=== PATIENT | male | born 1950 | race Caucasian/White ===

== ENCOUNTER 2016-07-28 14:29 | Emergency (ER) | payer MEDICARE, MEDICAID ==
[2016-07-28 16:44] VITALS: BP 122/73
--- NOTE | 2016-07-28 18:40 | UC ---
Skin Complaint HPI - HPI Summary HPI Summary: pt presents with c/o tick bite on right lateral lower back. Pt reports that his "girlfriend" removed the tick at home no complaint of large erythema [place] around tick bite and tenderness, bruising at site with blackened center. - History of Current Complaint Chief Complaint: UCGeneralIllness Time Seen by Provider: 07/28/16 17:33 Stated Complaint: TICK BITE AND RASH Hx Obtained From: Patient Onset/Duration: Gradual Onset, Lasting Days Skin Exposure Onset/Duration: Days Ago Timing: Constant Onset Severity: Mild Current Severity: Moderate Pain Intensity: 4 Pain Scale Used: 0-10 Numeric Location: Discrete - right lateral lower back Character: Redness, Painful Aggravating: Touch Alleviating: Unknown Associated Signs & Symptoms: Positive: Drainage, Tenderness, Red Streaks - one red streak Related History: Insect Bite/Sting - Allergy/Home Medications Allergies/Adverse Reactions: Allergies Allergy/AdvReac Type Severity Reaction Status Date / Time No Known Allergies Allergy Verified 07/28/16 16:31 Review of Systems Constitutional: Negative Skin: Bruising, Other - erythema, tenderness, small amount of discharge, 1 cm "lump' at center of erythema Eyes: Negative ENT: Negative Respiratory: Negative Cardiovascular: Negative Gastrointestinal: Negative Genitourinary: Negative Motor: Negative Neurovascular: Negative Musculoskeletal: Negative Neurological: Negative Psychological: Negative All Other Systems Reviewed And Are Negative: Yes PMH/Surg Hx/FS Hx/Imm Hx Previously Healthy: Yes Endocrine History Of: Denies: Diabetes, Thyroid Disease Cardiovascular History Of: Denies: Cardiac Disorders, Hypertension, Congestive Heart Failure Respiratory History Of: Denies: COPD, Asthma GI/ History Of: Denies: Ulcer Psychological History Of: Reports: Anxiety, Depression - Surgical History Surgical History: Yes Surgery Procedure, Year, and Place: Prostatectomy 2006, appendectomy 1966 - Family History Known Family History: Negative: Cardiac Disease, Hypertension, Diabetes - Social History Alcohol Use: Weekly Alcohol Amount: 1 drink every other day Substance Use Type: Marijuana Substance Use Comment - Amount & Last Used: 2-3X / week Smoking Status (MU): Light Every Day Tobacco Smoker Type: Cigarettes Amount Used/How Often: <1/2 pack/ day Length of Time of Smoking/Using Tobacco: 30YRS Have You Smoked in the Last Year: Yes Physical Exam Triage Information Reviewed: Yes Appearance: Well-Appearing Vital Signs: Initial Vital Signs Temp 97.7 F 07/28/16 16:32 Pulse 65 07/28/16 16:32 Resp 18 07/28/16 16:32 BP 122/73 07/28/16 16:32 Pulse Ox 99 07/28/16 16:32 Vital Signs Reviewed: Yes Eye Exam: Normal ENT Exam: Normal Neck exam: Normal Respiratory Exam: Normal Cardiovascular Exam: Normal Abdominal Exam: Other - redstreak ~ 3 cm in length from edge of erythematous [place] sourrounding insect bite Bowel Sounds: Positive: Present Musculoskeletal Exam: Normal Neurological Exam: Normal Psychological Exam: Normal Skin Exam: Other - ~ 6 cm erythema [place] surrounding blackened center where tick bite. Scant amount pururlent discharge from bite site, firm nadulae felt at insect bite site. Course/Dx - Differential Diagnoses - Skin Complaint Differential Diagnoses: Cellulitis, Tick Born Illness - Diagnoses Provider Diagnoses: cellulitis. tick bite. possible lyme disease exposure Discharge - Discharge Plan Condition: Stable Disposition: HOME Prescriptions: Cefuroxime Axetil [Ceftin 500 MG TAB] 500 mg PO Q12H #28 tab Patient Education Materials: Cellulitis (ED), Tick Bite (ED) Referrals: Pilar Chavez MD [Primary Care Provider] - If Needed (Please follow up with your PCP as needed or return to clinic. If you develop any changes or worsening of your condition please seek medical attention as soon as possible. )
== END 2016-07-28 17:55 | disposition home or self-care (01) ==
LOC: UCEAST 14:29
DX: S30.860A Insect bite (nonvenomous) of lower back and pelvis, initial encounter (principal); L03.312 Cellulitis of back [any part except buttock and flank]; W57.XXXA Bitten or stung by nonvenomous insect and other nonvenomous arthropods, initial encounter; Y93.9 Activity, unspecified; Y92.9 Unspecified place or not applicable; F41.8 Other specified anxiety disorders; F17.210 Nicotine dependence, cigarettes, uncomplicated
CPT/HCPCS: 99212; G0463

== ENCOUNTER 2017-06-10 07:59 | Emergency (ER) | payer MEDICARE, MEDICAID ==
[2017-06-10 08:23] VITALS: BP 118/73
--- NOTE | 2017-06-10 08:33 | UC ---
Back Pain HPI - HPI Summary HPI Summary: 67 yo WM h/i lumbar arthritis p/w acute left lower back spasm while trying to rodolfo some firewood x 30 minutes and it acted up. - History of Current Complaint Chief Complaint: UCBackPain Stated Complaint: BACK PAIN Time Seen by Provider: 06/10/17 08:19 Hx Obtained From: Patient Onset/Duration: Sudden Onset Timing: Constant, Lasting Minutes Pain Intensity: 10 - Allergies/Home Medications Allergies/Adverse Reactions: Allergies Allergy/AdvReac Type Severity Reaction Status Date / Time No Known Allergies Allergy Verified 06/10/17 08:11 PMH/Surg Hx/FS Hx/Imm Hx - Additional Past Medical History Additional PMH: arthritis Previously Healthy: Yes - Surgical History Surgical History: Yes Surgery Procedure, Year, and Place: Prostatectomy 2008, appendectomy 1966 - Family History Known Family History: Negative: Cardiac Disease, Hypertension, Diabetes - Social History Alcohol Use: Rare Alcohol Amount: 1 drink every other day Substance Use Type: None Substance Use Comment - Amount & Last Used: 2-3X / week Smoking Status (MU): Light Every Day Tobacco Smoker Type: Cigarettes Amount Used/How Often: 3/4 PPD Length of Time of Smoking/Using Tobacco: 30YRS Have You Smoked in the Last Year: Yes Review of Systems Constitutional: Negative Skin: Negative Eyes: Negative ENT: Negative Respiratory: Negative Cardiovascular: Negative Gastrointestinal: Negative Genitourinary: Negative Motor: Negative Neurovascular: Negative Musculoskeletal: Arthralgia, Decreased ROM - left lower back, Myalgia Neurological: Negative Psychological: Negative All Other Systems Reviewed And Are Negative: Yes Physical Exam Triage Information Reviewed: Yes Vital Signs: Initial Vital Signs Temp 36.5 C 06/10/17 08:12 Pulse 72 06/10/17 08:12 Resp 18 06/10/17 08:12 BP 118/73 06/10/17 08:12 Pulse Ox 99 06/10/17 08:12 Eye Exam: Normal ENT Exam: Normal Dental Exam: Normal Neck exam: Normal Neck: Positive: 1 Respiratory Exam: Normal Cardiovascular Exam: Normal Abdominal Exam: Normal Musculoskeletal Exam: Other Musculoskeletal: Positive: Strength Limited @, ROM Limited @, Other: - left L3- 5 paraspinal muscle tenderness and stiffness Neurological Exam: Normal Psychological Exam: Normal Skin Exam: Normal Back Pain Course/Dx - Differential Dx/Diagnosis Provider Diagnoses: acute lumbar back spasm Discharge - Discharge Plan Condition: Stable Disposition: HOME Prescriptions: Naproxen Sodium [Naproxen Sodium 500 MG TAB] 500 mg PO BID 10 Days #20 tab tiZANidine TAB* [Zanaflex TAB*] 4 mg PO BEDTIME 5 Days #5 tab Patient Education Materials: Muscle Spasm (ED) Referrals: Pilar Chavez MD [Primary Care Provider] - Additional Instructions: take medication as directed
== END 2017-06-10 08:35 | disposition home or self-care (01) ==
LOC: UCEAST 07:59
DX: M62.830 Muscle spasm of back (principal); F17.210 Nicotine dependence, cigarettes, uncomplicated
CPT/HCPCS: 99212; G0463

== ENCOUNTER 2018-10-06 22:40 | Emergency (ER) | payer MEDICARE, MEDICAID ==
[2018-10-06] MEDS ORDERED: Lorazepam PYXIS KEY ONE ×2 (22:43→23:11)
[2018-10-06] MEDS ORDERED: LORazepam INJ* 2 MG/ML 1 ML VIAL ONE (22:43)
[2018-10-06] MEDS ORDERED: Haloperidol INJ IV/IM* 5 MG/ML AMP ONE (22:43)
[2018-10-06] MEDS ORDERED: LORazepam INJ* 2 MG/ML 1 ML VIAL IM ONE ×2 (22:48→23:17)
[2018-10-06] MEDS ORDERED: Haloperidol INJ IV/IM* 5 MG/ML AMP IM ONE (22:48)
[2018-10-06] MEDS ORDERED: Lorazepam PYXIS KEY PRN (23:17)
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
--- NOTE | 2018-10-07 07:19 | ED ---
Progress - Progress Note Progress Note: This patient was signed out from Dr. Mcbride to Dr. Roblero upon shift change at 07:00 10/07/18 pending sobriety. The patient is now sober and will be discharged and follow up with his PCP in 2-3 days. The patient is agreeable with this plan. Course/Dx - Course Course Of Treatment: This patient was signed out by Dr. Mcbride in the previous he attending at shift change. He reports that the patient came in with alcohol intoxication. The patient was given Ativan and Haldol for anxiety. At this time the patient is alert and oriented 3. The patient is ambulating with a good steady walk. The patient is sober and eating breakfast. Therefore the patient will be discharged home with follow-up with PCP. Patient is hemodynamically stable alert and oriented 3. - Diagnoses Provider Diagnoses: Alcohol intoxication Discharge - Sign-Out/Discharge Documenting (check all that apply): Patient Departure - DC, Receiving Sign-Out Receiving patient FROM: Sabas Mcbride Patient Received Moderate/Deep Sedation with Procedure: No - Discharge Plan Condition: Stable Disposition: HOME Patient Education Materials: Alcohol Intoxication (ED) Referrals: Pilar Chavez MD [Primary Care Provider] - (2-3 days) Additional Instructions: FOLLOW UP WITH YOUR PRIMARY CARE PROVIDER IN 2-3 DAYS. RETURN TO THE ED FOR ANY WORSENING OR NEW SYMPTOMS. - Billing Disposition and Condition Condition: STABLE Disposition: Home - Attestation Statements Document Initiated by Marci: Yes Documenting Scribe: Geoff Delgado Provider For Whom Marci is Documenting (Include Credential): Marcio Roblero MD Scribe Attestation: I, Geoff Delgado, scribed for Marcio Roblero MD on 10/07/18 at 0813. Scribe Documentation Reviewed: Yes Provider Attestation: The documentation as recorded by the Geoff holder accurately reflects the service I personally performed and the decisions made by me, Marcio Roblero MD Status of Scribe Document: Viewed
[2018-10-07 07:37] VITALS: BP 140/81
== END 2018-10-07 07:36 | disposition home or self-care (01) ==
LOC: ED 22:40
DX: F10.929 Alcohol use, unspecified with intoxication, unspecified (principal); F17.210 Nicotine dependence, cigarettes, uncomplicated
CPT/HCPCS: 96372; 99284; J1630; J2060

== ENCOUNTER 2018-11-13 13:43 | Emergency (ER) | payer MEDICARE, MEDICAID ==
[2018-11-13 16:41] VITALS: BP 0/0
--- NOTE | 2018-11-15 06:01 | ED ---
Throat Pain/Nasal Congestion - HPI Summary HPI Summary: Patient is a 68-year-old male who presents emergency department for possible esophageal foreign body. Patient states he was fishing and was chewing on a piece of grass when he fell and states grass when into his throat. Patient states he feels that his right posterior throat. He denies difficulty swallowing solids or liquids. Symptoms are mild in severity. No current modifying factors. - History of Current Complaint Chief Complaint: EDThroatPain Time Seen by Provider: 11/13/18 15:57 Hx Obtained From: Patient - Allergies/Home Medications Allergies/Adverse Reactions: Allergies Allergy/AdvReac Type Severity Reaction Status Date / Time No Known Allergies Allergy Verified 11/13/18 13:50 Home Medications: Home Medications Oxycodone HCl 10 mg PO QID PRN 11/13/18 [History Confirmed 11/13/18] PMH/Surg Hx/FS Hx/Imm Hx Previously Healthy: Yes Endocrine/Hematology History: Denies: Hx Diabetes, Hx Thyroid Disease Cardiovascular History: Denies: Hx Congestive Heart Failure, Hx Hypertension Respiratory History: Denies: Hx Asthma, Hx Chronic Obstructive Pulmonary Disease (COPD) GI History: Denies: Hx Ulcer History: Reports: Other Problems/Disorders - prostate CA Denies: Hx Renal Disease Musculoskeletal History: Denies: Hx Scoliosis Neurological History: Reports: Other Neuro Impairments/Disorders - CHRONIC LBP Denies: Hx Headaches Psychiatric History: Reports: Hx Anxiety, Hx Depression, Hx of Violent Episodes Against Others Denies: Hx Eating Disorder - Cancer History Cancer Type, Location and Year: prostate cancer - Surgical History Surgery Procedure, Year, and Place: Prostatectomy 2008, appendectomy 1966 Infectious Disease History: No Infectious Disease History: Denies: Hx Hepatitis, Hx Human Immunodeficiency Virus (HIV), History Other Infectious Disease, Traveled Outside the [place] in Last 30 Days - Family History Known Family History: Positive: Non-Contributory Negative: Cardiac Disease, Hypertension, Diabetes - Social History Occupation: Retired Lives: With Family Alcohol Use: Rare Alcohol Amount: unknown Hx Substance Use: Yes Substance Use Type: Reports: Other Substance Use Comment - Amount & Last Used: unknown Hx Tobacco Use: Yes Smoking Status (MU): Light Every Day Tobacco Smoker Type: Cigarettes Amount Used/How Often: 3/4 PPD Length of Time of Smoking/Using Tobacco: 30YRS Have You Smoked in the Last Year: Yes Review of Systems Positive: Other - throat FB Respiratory: Negative Negative: Shortness Of Breath, Cough All Other Systems Reviewed And Are Negative: Yes Physical Exam Triage Information Reviewed: Yes Vital Signs On Initial Exam: Initial Vitals Temp Pulse Resp BP Pulse Ox 97.4 F 60 16 144/84 100 11/13/18 13:47 11/13/18 13:47 11/13/18 13:47 11/13/18 13:47 11/13/18 13:47 Vital Signs Reviewed: Yes Appearance: Positive: Well-Appearing - Pt. sitting in room in NAD. Very aggitated. Skin: Positive: Warm, Dry Head/Face: Positive: Normal Head/Face Inspection Eyes: Positive: Normal, EOMI ENT: Positive: Other - Oral pharynx is patent. No tonsilar edema or exudate. Uvula is midline. I thought I saw a questionable thin FB in posterior pharynx and attempted to remove it with a Q tip but pt. gagged and I lost few. After this pt. states he felt better. Neck: Positive: Supple Neurological: Positive: Normal, CN Intact II-III Psychiatric: Positive: Affect/Mood Appropriate Diagnostics - Vital Signs Vital Signs Temp Pulse Resp BP Pulse Ox 11/13/18 16:39 0 F 0 0 0/0 0 11/13/18 13:47 97.4 F 60 16 144/84 100 - Laboratory Lab Statement: Any lab studies that have been ordered have been reviewed, and results considered in the medical decision making process. EENT Course/Dx - Course Course Of Treatment: Patient presenting with questionable one piece of small grass in his posterior throat. Patient was very agitated having to wait and would only allow Limited exam. Explained to patient. He did indeed have a small piece of grass in his esophagus that it should pass without difficulty. Pt. reassured. DC home to [facility] with pcp if needed. Will return to ER if sxs change or worsen. - Differential Diagnoses Differential Diagnoses: Foreign Body, Pharyngitis - Diagnoses Provider Diagnoses: Dysphagia Discharge - Sign-Out/Discharge Documenting (check all that apply): Patient Departure Patient Received Moderate/Deep Sedation with Procedure: No - Discharge Plan Condition: Improved Disposition: HOME Patient Education Materials: Esophageal Foreign Body (ED) Referrals: Pilar Chavez MD [Primary Care Provider] - Additional Instructions: Follow up with PCP if pain persist Increase fluids Return to ER if symptoms change or worsen - Billing Disposition and Condition Condition: IMPROVED Disposition: Home
== END 2018-11-13 16:39 | disposition home or self-care (01) ==
LOC: ED 13:43
DX: R13.10 Dysphagia, unspecified (principal); F17.210 Nicotine dependence, cigarettes, uncomplicated
CPT/HCPCS: 99281

== ENCOUNTER 2019-04-07 11:17 | Inpatient (IN) | payer MEDICARE, MEDICAID ==
[2019-04-07 12:45] LABS: ABS Eosinophils 0.1 10^3/ul (0-0.6); ABS Lymphocytes 3.1 10^3/ul (1.0-4.8); ABS Monocytes 0.5 10^3/ul (0-0.8); ABS Neutrophils 4.7 10^3/ul (1.5-7.7); Eosinophil % 0.7 %; Hematocrit 33 % (42-52); Hemoglobin 11.9 g/dL (14.0-18.0); Mean Corpuscular HGB Conc 37 g/dL (31-36); Mean Corpuscular Hemoglobin 34 pg (27-31); Mean Corpuscular Volume 91 fL (80-94); Platelet Count 264 10^3/uL (150-450); Red Blood Count 3.56 10^6 /uL (4.18-5.48); Red Cell Distribution Width 13 % (10-15); White Blood Count 8.4 10^3/uL (3.5-10.8)
[2019-04-07 12:59] LABS: Albumin 4.3 g/dL (3.2-5.2); Albumin/Globulin Ratio 1.8 (1-3); BUN/Creatinine Ratio 13.5 (8-20); Calcium 8.5 mg/dL (8.6-10.3); EGFR African American 126.9 (>60); EGFR Non-African American 104.9 (>60); Globulin 2.4 g/dL (2-4); Potassium 4.6 mmol/L (3.5-5.0); Total Bilirubin 0.6 mg/dL (0.2-1.0); Total Protein 6.7 g/dL (6.4-8.9)
[2019-04-07] MEDS ORDERED: NS 0.9% 1000 ML** 1,000 ML IV ONE (13:05)
--- NOTE | 2019-04-07 13:06 | ED ---
Dizziness - HPI Summary HPI Summary: Pt is a 69 y/o M presenting to the ED with a chief complaint of weakness initially onset this morning. He describes it characterized by lightheadedness, generally weak, and diaphoretic on his neck. He denies fever, abd pain, syncope , or chest pain. Reports slight headache this AM, decreased appetite, constipation that he txed with stool softener, and diarrhea this morning. Pt sees Dr. Parisi and takes Morphine 15mg PRN up to 3x/day. Did take his morphine this AM. Has had dec PO intake. - History Of Current Complaint Chief Complaint: EDWeakness Stated Complaint: GENERAL ILLNESS Time Seen by Provider: 04/07/19 12:16 Hx Obtained From: Patient Onset/Duration: Still Present, Suddenly Timing: Hours Severity Initially: Moderate Severity Currently: Mild Character: Lightheaded, Weak Aggravating Factor(s): Nothing Alleviating Factor(s): Nothing Associated Signs And Symptoms: Positive: Diarrhea, Decreased Oral Intake. Negative: Chest Pain - Allergies/Home Medications Allergies/Adverse Reactions: Allergies Allergy/AdvReac Type Severity Reaction Status Date / Time No Known Allergies Allergy Verified 04/07/19 12:41 Home Medications: Home Medications Bisacodyl EC TAB* [Dulcolax EC TAB*] 5 mg PO DAILY PRN 04/07/19 [History Confirmed 04/07/19] Morphine Sulfate 15 mg PO .2-3X/DAY 04/07/19 [History Confirmed 04/07/19] PMH/Surg Hx/FS Hx/Imm Hx Previously Healthy: Yes Endocrine/Hematology History: Denies: Hx Diabetes, Hx Thyroid Disease Cardiovascular History: Denies: Hx Congestive Heart Failure, Hx Hypertension Respiratory History: Denies: Hx Asthma, Hx Chronic Obstructive Pulmonary Disease (COPD) GI History: Denies: Hx Ulcer History: Reports: Other Problems/Disorders - prostate CA Denies: Hx Renal Disease Musculoskeletal History: Denies: Hx Scoliosis Neurological History: Reports: Other Neuro Impairments/Disorders - CHRONIC LBP Denies: Hx Headaches Psychiatric History: Reports: Hx Anxiety, Hx Depression, Hx of Violent Episodes Against Others Denies: Hx Eating Disorder - Cancer History Cancer Type, Location and Year: prostate cancer - Surgical History Surgery Procedure, Year, and Place: Prostatectomy 2008, appendectomy 1966 Infectious Disease History: No Infectious Disease History: Denies: Hx Hepatitis, Hx Human Immunodeficiency Virus (HIV), History Other Infectious Disease, Traveled Outside the [place] in Last 30 Days - Family History Known Family History: Negative: Cardiac Disease, Hypertension, Diabetes - Social History Alcohol Use: None Alcohol Amount: unknown Hx Substance Use: Yes Substance Use Type: Reports: None Substance Use Comment - Amount & Last Used: unknown Hx Tobacco Use: Yes Smoking Status (MU): Heavy Every Day Tobacco Smoker Type: Cigarettes Amount Used/How Often: 3/4 PPD Length of Time of Smoking/Using Tobacco: 30YRS Have You Smoked in the Last Year: Yes Review of Systems Negative: Fever, Other - decreased appetite Negative: Chest Pain Positive: Diarrhea, Other - constipation. Negative: Abdominal Pain Positive: Headache. Negative: Syncope All Other Systems Reviewed And Are Negative: Yes Physical Exam - Summary Physical Exam Summary: Constitutional: Well-developed, Well-nourished, Alert. (-) Distressed Skin: Warm, Dry HENT: Normocephalic; Atraumatic Eyes: Conjunctiva normal Neck: Musculoskeletal ROM normal neck. (-) JVD, (-) Stridor, (-) Nuchal rigidity Cardio: Rhythm regular, rate bradycardic, Heart sounds normal; Intact distal pulses; Radial pulses are 2+ and symmetric. (-) Murmur Pulmonary/Chest wall: Effort normal. (-) Respiratory distress, (-) Wheezes, (-) Rales Abd: Soft, (-) tenderness, (-) Distension, (-) Guarding, (-) Rebound Musculoskeletal: (-) Edema Lymph: (-) Cervical adenopathy Neuro: Alert, Oriented x3 Psych: Mood and affect Normal Triage Information Reviewed: Yes Vital Signs On Initial Exam: Initial Vitals Temp Pulse Resp BP Pulse Ox 97.2 F 51 20 156/75 100 04/07/19 12:03 04/07/19 12:03 04/07/19 12:03 04/07/19 12:03 04/07/19 12:03 Vital Signs Reviewed: Yes Procedures - Sedation Patient Received Moderate/Deep Sedation with Procedure: No Diagnostics - Vital Signs Vital Signs Temp Pulse Resp BP Pulse Ox 04/07/19 12:03 97.2 F 51 20 156/75 100 - Laboratory Lab Results: Lab Results 04/07/19 04/07/19 Range/Units 12:26 12:26 WBC 8.4 (3.5-10.8) 10^3/uL RBC 3.56 L (4.18-5.48) 10^6 /uL Hgb 11.9 L (14.0-18.0) g/dL Hct 33 L (42-52) % MCV 91 (80-94) fL MCH 34 H (27-31) pg MCHC 37 H (31-36) g/dL RDW 13 (10-15) % Plt Count 264 (150-450) 10^3/uL MPV 7.0 L (7.4-10.4) fL Neut % (Auto) 55.6 % Lymph % (Auto) 37.0 % [place] % (Auto) 6.3 % Eos % (Auto) 0.7 % Baso % (Auto) 0.4 % Absolute Neuts (auto) 4.7 (1.5-7.7) 10^3/ul Absolute Lymphs (auto) 3.1 (1.0-4.8) 10^3/ul Absolute Monos (auto) 0.5 (0-0.8) 10^3/ul Absolute Eos (auto) 0.1 (0-0.6) 10^3/ul Absolute Basos (auto) 0.0 (0-0.2) 10^3/ul Absolute Nucleated RBC 0.0 10^3/ul Nucleated RBC % 0.0 Sodium Pending Potassium 4.6 (3.5-5.0) mmol/L Chloride 84 L (101-111) mmol/L Carbon Dioxide 23 (22-32) mmol/L Anion Gap Pending BUN 10 (6-24) mg/dL Creatinine 0.74 (0.67-1.17) mg/dL Est GFR ( Amer) 126.9 (>60) Est GFR (Non-Af Amer) 104.9 (>60) BUN/Creatinine Ratio 13.5 (8-20) Glucose 77 (70-100) mg/dL Calcium 8.5 L (8.6-10.3) mg/dL Total Bilirubin 0.60 (0.2-1.0) mg/dL AST 25 (13-39) U/L ALT 13 (7-52) U/L Alkaline Phosphatase 56 (34-104) U/L Troponin I 0.00 (<0.03) ng/mL Total Protein 6.7 (6.4-8.9) g/dL Albumin 4.3 (3.2-5.2) g/dL Globulin 2.4 (2-4) g/dL Albumin/Globulin Ratio 1.8 (1-3) TSH Pending Result Diagrams: 04/07/19 12:26 04/07/19 12:26 Lab Statement: Any lab studies that have been ordered have been reviewed, and results considered in the medical decision making process. - EKG 1235 Cardiac Rate: Bradycardia - 50bpm EKG Rhythm: Sinus Bradycardia ST Segment: Normal Ectopy: None Summary of EKG Findings: An EKG at 1235 reveals sinus bradycardia 50bpm, nml axis, nml intervals. No STEMI. No acute changes. ED physician has reviewed and interpreted this EKG. Dizzy Course/Dx - Course Course Of Treatment: 69 y/o male w hx as a cancer, bony metastases presents with fatigue. Patient reporting nursing syncopal episode, no infectious symptoms. Does report decreased by mouth intake over the past several days. No vomiting. Did have constipation which resolved. Vital signs notable for bradycardia, patient has had in the past. Labs notable for hyponatremia to 111. No hx of hyponatremic. Differential includes renal vs extra renal causes ( ?SIADH). Appears mildly dehydrated given 1 L NS. - Diagnoses Provider Diagnoses: Hyponatremia, Fatigue Discharge ED - Sign-Out/Discharge Documenting (check all that apply): Patient Departure - Discharge Plan Condition: Stable Disposition: ADMITTED TO [facility] Referrals: Pilar Chavez MD [Primary Care Provider] - - Billing Disposition and Condition Condition: STABLE Disposition: Admitted to [facility] - Attestation Statements Document Initiated by Scribe: Yes Documenting Scribe: Lisa Uriarte Provider For Whom Marci is Documenting (Include Credential): Kiran Jansen MD. Scribe Attestation: Lisa Laws, scribed for Kiran Jansen MD. on 04/07/19 at 1405. Scribe Documentation Reviewed: Yes Provider Attestation: The documentation as recorded by the Lisa holder accurately reflects the service I personally performed and the decisions made by nm, Kiran Jansen MD. Status of Scribe Document: Viewed Consult Consult: [id number] - I spoke with Dr. Parisi about the pt's present condition who [place] [facility] [place]
[2019-04-07 13:12] LABS: TSH (Thyroid Stimulating Horm) 4.13 mcIU/mL (0.34-5.60)
[2019-04-07] MEDS ORDERED: Ondansetron INJ* 2 MG/ML VIAL IV PRN (14:51)
[2019-04-07 14:56] LABS: Urine Appearance Clear; Urine Bilirubin Negative (Negative); Urine Blood 1+ (Negative); Urine Color Yellow; Urine Glucose Negative (Negative); Urine Ketones 1+ (Negative); Urine Nitrite Negative (Negative); Urine Protein Negative (Negative); Urine Specific Gravity 1.011 (1.010-1.030); Urine Urobilinogen Negative (Negative)
[2019-04-07 14:58] LABS: Urine Bacteria Absent (Absent); Urine Red Blood Cell Trace(0-2/hpf) (Absent); Urine White Blood Cell Trace(0-5/hpf) (Absent)
[2019-04-07] MEDS ORDERED: Sodium Chloride 3% HYPERTONIC* 500 ML IV ONE (15:20)
[2019-04-07] MEDS ORDERED: Gadoteridol* (CONTRAST) 279.3 MG/ML 10 ML IV ONE (16:52)
--- NOTE | 2019-04-07 17:41 | HP ---
CC: Dr. Pilar Chavez * ADMISSION HISTORY AND PHYSICAL: DATE OF ADMISSION: 04/07/19 PRIMARY CARE PROVIDER: Dr. Pilar Chavez. PRIMARY ONCOLOGIST AND ATTENDING PHYSICIAN: Dr. Jeff Parisi.* (DICTATED BY JUN COLMENARES) ADMITTING PROVIDER: JUN Colmenares. CHIEF COMPLAINT: Weakness and dizziness. HISTORY OF PRESENT ILLNESS: This is a 69-year-old gentleman with known metastatic prostate cancer who has been completely off of therapy for greater than 1 year per the patient's request, who presented to the emergency department with complaints of weakness and dizziness. The patient reports that symptoms have been persistent for approximately the last 2 days. He denies any vomiting or nausea. He has been quite constipated recently and takes MiraLAX and Colace with some improvement actually to the point that he had diarrhea earlier today. Denies any associated abdominal pain. He denies any cough, shortness of breath, or recent fevers. The patient was found to have a sodium of 111 on routine labs completed in the emergency department and oncology team was asked to come and evaluate. The patient denies any new medications apart from the MiraLAX and Colace that his primary care recommended for management of his constipation. As mentioned above, he reports that he has otherwise been feeling okay, and most recent labs are from October of this past year and sodium was within normal limits at that time. PAST MEDICAL HISTORY: Metastatic prostate cancer - currently off of therapy. PAST SURGICAL HISTORY: Appendectomy in 1966. HOME MEDICATIONS: 1. Bisacodyl 5 mg p.o. daily as needed for constipation. 2. Morphine sulfate 15 mg p.o. 2 to 3 times daily as needed for pain. FAMILY HISTORY: The patient's father at the age of 52 from unclear reasons. Mother at age of 92. Sister at the age of 74 with lung cancer. He has 2 children that are in good health. SOCIAL HISTORY: The patient is single and lives with his son. He is retired. 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 Former smoker, but quit some time ago. REVIEW OF SYSTEMS: Full review of systems completed. Pertinent negatives and positives as noted in HPI. PHYSICAL EXAMINATION GENERAL: A relatively well-appearing 69-year-old male, who appears mildly lethargic, but is otherwise in no acute distress. INITIAL VITAL SIGNS: Temperature 97.2 degrees Fahrenheit, pulse 51 beats per minute, respiratory rate 20, oxygen saturation 100%, blood pressure 156/75 mmHg. HEENT: Head is normocephalic, atraumatic. Mucous membranes are pink and moist. RESPIRATORY: Lungs are clear to auscultation without wheezes, crackles, or rhonchi. CARDIOVASCULAR: Heart has a regular rate and rhythm without murmurs, rubs, or gallops. ABDOMEN: Soft and nontender to palpation. EXTREMITIES: No edema. PSYCH: The patient is alert and appropriately oriented with appropriate affect. DIAGNOSTIC STUDIES/LAB DATA: CBC shows a white blood cell count of 8400, hemoglobin of 11.9 g/dL, and a platelet count of 264,000. Comprehensive metabolic panel: Sodium of 111 mmol/L, potassium of 4.6, BUN of 10, creatinine 0.74. Transaminases and total bilirubin are within normal limits. TSH is 4.1. Serum osmolality is 240. Urine osmolality 437, urine random sodium of 107. Imaging: None. ASSESSMENT AND PLAN: This is a 69-year-old gentleman with known metastatic prostate cancer, off of therapy for greater than 1 year, who presents with generalized feeling of malaise and dizziness, found to have a sodium of 111. There are no obvious inciting factors, but his evaluation appears to be consistent with syndrome of inappropriate antidiuretic hormone secretion with a relatively low serum osmolality, high urine osmolality and high urine sodium. He has a normal TSH. Apart from the recent laxatives, there are no new medications and typically those medications are not associated with syndrome of inappropriate antidiuretic hormone secretion. Prostate cancer is not typically associated with syndrome of inappropriate antidiuretic hormone secretion, but could he develop neuroendocrine differentiation. The patient has no focal central nervous system symptoms. Plan at this time will be to treat the hyponatremia appropriately with hypertonic saline with ICU monitoring and continue to evaluate for underlying etiology. 1. Initiate hypertonic saline with goal of sodium 120 mmol/L over in approximately 24 hours. The patient will be monitored with q.4 hour basic metabolic panels. We will initiate mild fluid restriction starting with 2 L. In regards to evaluating for cause for the syndrome of inappropriate antidiuretic hormone secretion, we will start with an MRI of the brain to evaluate for central nervous system disease. Added on chromogranin studies to initial labs to evaluate for neuroendocrine differentiation and we will also add on a PSA. If MRI of the brain is negative, next pursue CT chest, abdomen and pelvis. 2. Metastatic prostate cancer - continue on home pain medications. Repeat PSA and pending staging studies we will rediscuss his wishes to whether or not to resume treatment if there appears to be any progressive disease. 3. Code status: The patient is full code. 4. DVT prophylaxis: Lovenox 40 mg subcu daily. 5. Disposition: The patient is being admitted to ICU for management of severe hyponatremia requiring hypertonic saline. JUN COLMENARES [id number]/[facility] #: [id number] RITA
[2019-04-07] MEDS: Enoxaparin(*) 40 MG/0.4 ML SYR SUBCUT SCH (19:50)
[2019-04-07] MEDS: Morphine ORAL.SOLN 10 mg* 2 MG/ML UDC 5 ml PO PRN (20:33)
[2019-04-07] MEDS ORDERED: Morphine ORAL.SOLN 10 mg* 2 MG/ML UDC 5 ml PO SCH (21:00)
[2019-04-07 22:53] LABS: Calcium 7.7 mg/dL (8.6-10.3); EGFR African American 137.6 (>60); EGFR Non-African American 113.7 (>60)
[2019-04-07] MEDS: Senna TAB 8.6 mg* TAB PO SCH (23:17)
[2019-04-08 02:47] LABS: BUN/Creatinine Ratio 12.5 (8-20); Potassium 3.8 mmol/L (3.5-5.0)
[2019-04-08 05:18] LABS: ABS Eosinophils 0.1 10^3/ul (0-0.6); ABS Lymphocytes 2.9 10^3/ul (1.0-4.8); ABS Monocytes 0.4 10^3/ul (0-0.8); ABS Neutrophils 3.2 10^3/ul (1.5-7.7); Hematocrit 34 % (42-52); Hemoglobin 12.4 g/dL (14.0-18.0); Lymphocyte % 44.8 %; Mean Corpuscular HGB Conc 36 g/dL (31-36); Mean Corpuscular Hemoglobin 33 pg (27-31); Mean Corpuscular Volume 92 fL (80-94); Mean Platelet Volume 7.2 fL (7.4-10.4); Nucleated Red Blood Cells % 0.1; Platelet Count 256 10^3/uL (150-450); Red Blood Count 3.74 10^6 /uL (4.18-5.48); Red Cell Distribution Width 14 % (10-15); White Blood Count 6.6 10^3/uL (3.5-10.8)
--- NOTE | 2019-04-08 05:26 | PN ---
Hospitalist Progress Note Date of Service: 04/08/19 Cross Cover Note 69M PMH met prostate Ca presents with presumed chronic asymptomatic hypoNA to 111 from SIADH Started on hypertonic saline 3%@ 40cc/hr, repeat after 6 hours shows NA112->119 , met goal of increase 4-6 within first 24 hours. Stop gtt at 3AM and follow up AM NA level if falls lower than 119 would restart gtt at 15cc/hr, goal > 120 and then stop gtt and start fluid restriction and oral salt tabs.
[2019-04-08 05:33] LABS: BUN/Creatinine Ratio 13.2 (8-20); Calcium 8.1 mg/dL (8.6-10.3); EGFR African American 139.9 (>60); EGFR Non-African American 115.6 (>60); Potassium 4.4 mmol/L (3.5-5.0)
[2019-04-08] MEDS ORDERED: Sodium Chloride 3% HYPERTONIC* 500 ML IV SCH ×3 (06:00→19:00)
[2019-04-08] MEDS: Senna TAB 8.6 mg* TAB PO SCH ×2 (07:52→19:47)
[2019-04-08] MEDS: Morphine ORAL.SOLN 10 mg* 2 MG/ML UDC 5 ml PO PRN ×2 (11:49→21:10)
[2019-04-08 11:54] LABS: BUN/Creatinine Ratio 11.8 (8-20); Calcium 8.2 mg/dL (8.6-10.3); EGFR African American 139.9 (>60); EGFR Non-African American 115.6 (>60)
[2019-04-08] MEDS ORDERED: Iohexol 300* (CONTRAST) 10 ML SDV IV ONE (13:53)
[2019-04-08 15:53] LABS: BUN/Creatinine Ratio 11.9 (8-20); Calcium 8.2 mg/dL (8.6-10.3); EGFR African American 142.3 (>60); EGFR Non-African American 117.6 (>60); Potassium 4.4 mmol/L (3.5-5.0)
[2019-04-08] MEDS: Enoxaparin(*) 40 MG/0.4 ML SYR SUBCUT SCH (16:04)
[2019-04-08 20:12] LABS: BUN/Creatinine Ratio 12.9 (8-20); EGFR African American 135.3 (>60); EGFR Non-African American 111.8 (>60)
--- NOTE | 2019-04-08 20:32 | PN ---
Hospitalist Progress Note Date of Service: 04/08/19 Cross Cover Note 69 M metastatic prostate Ca presented with asymptoamtic severe hypONA from SIADH -1900 BMP Na 120, stop gtt, start Oral Salt Tabs TID 1mg -Recheck BMP 6AM 04/09
[2019-04-08] MEDS: Sodium Chloride TAB* 1 GM PO SCH (21:15)
[2019-04-09 04:54] LABS: BUN/Creatinine Ratio 13.5 (8-20); Calcium 8.2 mg/dL (8.6-10.3); EGFR African American 126.9 (>60); EGFR Non-African American 104.9 (>60); Potassium 4.4 mmol/L (3.5-5.0)
[2019-04-09] MEDS: Senna TAB 8.6 mg* TAB PO SCH ×2 (07:46→20:15)
[2019-04-09] MEDS: Sodium Chloride TAB* 1 GM PO SCH ×3 (07:46→20:15)
[2019-04-09] MEDS ORDERED: Senna TAB 8.6 mg* TAB ONE (07:54)
[2019-04-09] MEDS: Morphine ORAL.SOLN 10 mg* 2 MG/ML UDC 5 ml PO PRN ×2 (10:26→20:15)
[2019-04-09 12:15] LABS: TSH (Thyroid Stimulating Horm) 3.89 mcIU/mL (0.34-5.60)
[2019-04-09] MEDS: Enoxaparin(*) 40 MG/0.4 ML SYR SUBCUT SCH (14:07)
[2019-04-09 16:55] LABS: BUN/Creatinine Ratio 12.2 (8-20); Calcium 8.6 mg/dL (8.6-10.3); EGFR African American 126.9 (>60); EGFR Non-African American 104.9 (>60); Potassium 4.4 mmol/L (3.5-5.0)
[2019-04-10 06:39] LABS: Albumin 3.8 g/dL (3.2-5.2); Albumin/Globulin Ratio 1.5 (1-3); BUN/Creatinine Ratio 13.5 (8-20); Calcium 8.9 mg/dL (8.6-10.3); EGFR African American 85.7 (>60); EGFR Non-African American 70.8 (>60); Globulin 2.5 g/dL (2-4); Total Bilirubin 0.3 mg/dL (0.2-1.0); Total Protein 6.3 g/dL (6.4-8.9)
[2019-04-10 06:45] LABS: Potassium 5.1 mmol/L (3.5-5.0)
[2019-04-10] MEDS: Senna TAB 8.6 mg* TAB PO SCH ×2 (08:02→19:47)
[2019-04-10] MEDS: Sodium Chloride TAB* 1 GM PO SCH ×3 (08:02→19:47)
[2019-04-10] MEDS: Morphine ORAL.SOLN 10 mg* 2 MG/ML UDC 5 ml PO PRN ×2 (08:11→19:47)
[2019-04-10] MEDS ORDERED: COSYNTROPIN IV ONE (09:30)
[2019-04-10] MEDS ORDERED: SODIUM CHLORIDE 0.9% IV ONE (09:30)
[2019-04-10] MEDS ORDERED: Gadoteridol* (CONTRAST) 279.3 MG/ML 10 ML IV ONE (09:52)
--- NOTE | 2019-04-10 11:08 | PN ---
Progress Note - Progress Note Date of Service: 04/10/19 SOAP: Subjective: []Feels better today then on admission. Near baseline. No focal aches or pains. Eating well, has clear thinking. Tolerating fluid restriction and salt tablets. Enoxaparin Sodium (Lovenox(*)) 40 mg SUBCUT Q24H [facility] Last Admin: 04/09/19 14:07 Dose: 40 mg Morphine Sulfate (Morphine Oral.Soln 10 Mg*) 15 mg PO TID PRN PRN Reason: PAIN - SEVERE Last Admin: 04/10/19 08:11 Dose: 15 mg Ondansetron HCl (Zofran Inj*) 4 mg IV Q4H PRN PRN Reason: NAUSEA/VOMITING Last Admin: 04/09/19 20:41 Dose: 4 mg Senna (Senokot 8.6 Mg Tab*) 1 tab PO BID [facility] Last Admin: 04/10/19 08:02 Dose: 1 tab Sodium Chloride (Sodium Chloride Tab*) 1 gm PO TID [facility] Last Admin: 04/10/19 08:02 Dose: 1 gm Objective: [] Vital Signs Temp Pulse Resp BP Pulse Ox 98.3 F 61 18 93/51 97 04/10/19 03:32 04/10/19 03:32 04/10/19 08:11 04/10/19 03:32 04/10/19 03:32 HEENT: PERRLa, OM moist, no thrush, no LAD CTA RRR S1S2 +BS NT ND Ext No C/C/E Neuro: CN 2-12 intact, AAO x 3, normal cerebellar, strength 5/5 throughout. Na 127, K 5.1 MRI pituitary protocol. Reviewed with radiology. Pituitary gland normal, no adenoma. There is pituitary stalk thickening. CT without clear progression PSA 1.4, up slightly Assessment: []69 year old metastatic prostate cancer, off therapy but without clear progression of disease. 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 Ddx includes para-neoplastic or idiopathic lymphocytic hypophysitis, metastatic disease possible, glaucomatous disease. Plan: []1. ACTH stimulation test tomorrow and consultation Dr. Ray 2. Continue Rx hyponatremia. 3. Follow K for now, may elevate. 4. No clear indication recurrent cancer at this time.
[2019-04-10] MEDS: Enoxaparin(*) 40 MG/0.4 ML SYR SUBCUT SCH (14:11)
[2019-04-11 06:39] LABS: ABS Basophils 0.1 10^3/ul (0-0.2); ABS Eosinophils 0.1 10^3/ul (0-0.6); ABS Lymphocytes 2.9 10^3/ul (1.0-4.8); ABS Monocytes 0.4 10^3/ul (0-0.8); ABS Neutrophils 2.4 10^3/ul (1.5-7.7); Eosinophil % 2.3 %; Hematocrit 30 % (42-52); Hemoglobin 10.9 g/dL (14.0-18.0); Mean Corpuscular HGB Conc 36 g/dL (31-36); Mean Corpuscular Hemoglobin 34 pg (27-31); Mean Corpuscular Volume 94 fL (80-94); Mean Platelet Volume 7.3 fL (7.4-10.4); Platelet Count 243 10^3/uL (150-450); Red Blood Count 3.21 10^6 /uL (4.18-5.48); Red Cell Distribution Width 14 % (10-15)
[2019-04-11 06:55] LABS: Albumin 3.6 g/dL (3.2-5.2); Albumin/Globulin Ratio 1.4 (1-3); BUN/Creatinine Ratio 13.4 (8-20); Calcium 8.8 mg/dL (8.6-10.3); EGFR African American 92.9 (>60); EGFR Non-African American 76.7 (>60); Globulin 2.5 g/dL (2-4); Magnesium 1.8 mg/dL (1.9-2.7); Potassium 4.5 mmol/L (3.5-5.0); Total Bilirubin 0.2 mg/dL (0.2-1.0); Total Protein 6.1 g/dL (6.4-8.9)
[2019-04-11] MEDS ORDERED: Polyethylene Glycol 3350* 17 GM PACKET PO PRN (09:19)
[2019-04-11] MEDS ORDERED: Magnesium CITRATE* 300 ML BTL PO ONE (09:30)
[2019-04-11] MEDS: Sodium Chloride TAB* 1 GM PO SCH ×3 (09:32→20:52)
[2019-04-11] MEDS: Senna TAB 8.6 mg* TAB PO SCH ×2 (09:32→20:52)
[2019-04-11] MEDS: Morphine ORAL.SOLN 10 mg* 2 MG/ML UDC 5 ml PO PRN ×2 (09:32→20:52)
--- NOTE | 2019-04-11 09:54 | PN ---
Subjective - Subjective Reason for Note: Consultation Note History: Endocrinology consultation: Syndrome of inappropriate ADH, adrenal insufficiency, hypophysitis. Presenting complaint - Weakness, light-headedness, dizziness. Mr Misha Olson is 69 year old right handed white male. He has a longstanding history of prostate cancer metastatic to bone. He has chronic urinary incontinence secondary to complications of his prostatectomy. He was well until 2 days prior to admission. He developed weakness, light-headedness , dizziness and had to hold onto things to walk. He had no nausea, vomiting or diarrhea. The ED found a Na of 112 meq/l. He has had no intercurrent infection , no head injury, no headache or change in vision. He has no prior endocrine history aside from prostate cancer treatment. Active Problems: Active Problems Adrenal insufficiency (Acute) E27.40 Hypophysitis (Acute) E23.6 Prostate cancer metastatic to bone (Acute) C61, C79.51 SIADH (syndrome of inappropriate ADH production) (Acute) Alcohol use disorder (Chronic 01/05/15) F10.99 Cannabis use disorder, mild, abuse (Chronic 01/05/15) F12.10 Mood disorder (Chronic 01/05/15) Patient is full code (Chronic 01/05/15) Z78.9 Current Medications: Current Medications Enoxaparin Sodium (Lovenox(*)) 40 mg SUBCUT Q24H [facility] Last Admin: 04/10/19 14:11 Dose: 40 mg Morphine Sulfate (Morphine Oral.Soln 10 Mg*) 15 mg PO TID PRN PRN Reason: PAIN - SEVERE Last Admin: 04/11/19 09:32 Dose: 15 mg Ondansetron HCl (Zofran Inj*) 4 mg IV Q4H PRN PRN Reason: NAUSEA/VOMITING Last Admin: 04/09/19 20:41 Dose: 4 mg Polyethylene Glycol/Electrolytes (Miralax*) 17 gm PO DAILY PRN PRN Reason: CONSTIPATION Senna (Senokot 8.6 Mg Tab*) 2 tab PO BID [facility] Sodium Chloride (Sodium Chloride Tab*) 1 gm PO TID [facility] Last Admin: 04/11/19 09:32 Dose: 1 gm - Review of Systems Constitutional Symptoms: Yes: Weakness, No: Weight Gain, Weight Loss, Unexplained Falls Dermatology: Rash: No Eyes: Negative: Change in Vision, Double Vision Thyroid: Negative: Goiter Pulmonary: Negative: Cough, Sputum, Respiratory Distress, Shortness of Breath Cardiology: Negative: Chest Pain, Shortness of Breath, Palpitations, Swelling of Ankles Gastroenterology: Positive: Constipation Negative: Abdominal Pain, Nausea, Vomiting Genital - Urinary: Positive: Other - incontinence - uses an adult diaper Musculoskeletal: Positive: Other - bone pain from metastatic disease Endocrinology: Positive: Gonadal Problems Negative: Thyroid Problems, Adrenal Problems, Diabetes Mellitus Neurology: Negative: Headache, Migraines, Change in Vision, Diplopia Past Medical History: High school - appendectomy 2009 prostatectomy with follow up surgery for obstruction/scar formation Comorbidities - denies these Home Medications: Home Medications Medication Instructions Recorded Confirmed Type Bisacodyl EC TAB* [Dulcolax EC 5 mg PO DAILY PRN 04/07/19 04/07/19 History TAB*] Morphine Sulfate 15 mg PO .2-3X/DAY 04/07/19 04/07/19 History Allergies: Allergies Allergy/AdvReac Type Severity Reaction Status Date / Time No Known Allergies Allergy Verified 04/07/19 12:41 - Family History Family History: Father suicide mother alzheimers sister lung cancer - Social History Social History: Tobacco smoker - from 18 years and continues 1/2 - 3/4 ppd Alcohol - none for 6 months Denies other substances 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 [employer] Objective - Vital Signs Vital Signs: Vital Signs 04/10/19 04/10/19 04/10/19 11:24 11:25 15:19 Temperature 97.5 F 98 F Pulse Rate 50 55 Respiratory 16 18 14 Rate Blood Pressure 95/52 106/58 (mmHg) O2 Sat by Pulse 98 100 Oximetry 04/10/19 04/10/19 04/10/19 16:11 19:47 20:00 Temperature Pulse Rate 68 Respiratory 16 18 18 Rate Blood Pressure (mmHg) O2 Sat by Pulse Oximetry 04/10/19 04/10/19 04/10/19 22:31 22:32 23:07 Temperature 98.1 F 97.8 F Pulse Rate 59 57 Respiratory 16 16 16 Rate Blood Pressure 97/51 123/55 (mmHg) O2 Sat by Pulse 97 100 Oximetry 04/11/19 04/11/19 04/11/19 04:30 07:45 09:32 Temperature 98.0 F 98.1 F Pulse Rate 69 60 Respiratory 18 17 18 Rate Blood Pressure 109/58 104/56 (mmHg) O2 Sat by Pulse 99 97 Oximetry - Intake and Output Intake and Output: Intake & Output 04/08/19 04/09/19 04/10/19 04/11/19 11:59 11:59 11:59 11:59 Intake Total 984 1231 337 4875 Output Total 2300 1475 225 Balance -1316 -908 680 7428 Weight 162 lb 14.746 oz 161 lb 2.526 oz 161 lb 2.526 oz Intake: IV Fluids 274 107 3% NS 274 107 IVPB 155 3% NS 155 Oral 710 150 147 1883 Output: Urine 2300 1475 225 Almaraz 0 Other: # Bowel Movements 1 Estimated Stool Amount Medium ADLs: Meal Record Start: 04/07/19 19: 36 Freq: 09,13,18 Status: Complete Protocol: Created 04/07/19 19:36 System (Rec: 04/07/19 19:36 System ICU-C25) Document 04/08/19 09:00 [id number] (Rec: 04/08/19 09:27 [id number] ICU-C12) Document 04/08/19 13:00 DID0558 (Rec: 04/08/19 14:34 HMZ2217 ICU-C10) Document 04/08/19 18:00 DJB3526 (Rec: 04/08/19 18:22 OXG6097 ICU-C10) ADLs: Meal Record Start: 04/09/19 11: 43 Freq: DAILY@0900,1400,1800 Status: Active Protocol: Created 04/09/19 11:43 [id number] (Rec: 04/09/19 11:43 [id number] ICU-C16) Document 04/09/19 13:28 ANE2788 (Rec: 04/09/19 13:28 TBY7630 MED-C11) Document 04/09/19 18:00 PKB1083 (Rec: 04/09/19 18:27 TNU7130 MED-C09) Document 04/10/19 09:00 CAO6943 (Rec: 04/10/19 09:47 CAE5097 MED-C09) Document 04/10/19 13:22 YKK1165 (Rec: 04/10/19 13:23 GPL8100 MED-C09) Document 04/10/19 18:00 MBK2446 (Rec: 04/10/19 18:15 VBL8576 MED-C11) Document 04/11/19 08:59 XGW8711 (Rec: 04/11/19 08:59 FGO1518 MED-C11) Intake and Output Start: 04/07/19 12: 08 Freq: Status: Cancelled Protocol: Created 04/07/19 12:08 System (Rec: 04/07/19 12:08 System [id number]-C04) Intake and Output Start: 04/07/19 15: 25 Freq: Q2HR Status: Complete Protocol: Created 04/07/19 15:26 [id number] (Rec: 04/07/19 15:26 BKG DEVIN-BG12) Intake and Output Start: 04/07/19 19: 36 Freq: Q1HR Status: Complete Protocol: Created 04/07/19 19:36 System (Rec: 04/07/19 19:36 System ICU-C25) Document 04/07/19 20:00 DRY2719 (Rec: 04/07/19 20:59 GMN2870 ICU-C12) Document 04/07/19 21:00 HLL5469 (Rec: 04/07/19 21:01 TTK7630 ICU-C12) Document 04/07/19 22:00 THS6837 (Rec: 04/07/19 22:16 DPX9054 ICU-C12) Document 04/07/19 22:18 MCR5427 (Rec: 04/07/19 22:18 AUH6087 ICU-M35) Document 04/07/19 23:29 PVI9841 (Rec: 04/07/19 23:29 LTH5470 ICU-C14) Document 04/08/19 01:00 MRA9059 (Rec: 04/08/19 01:10 MOW0849 ICU-C06) Document 04/08/19 02:00 RYB3857 (Rec: 04/08/19 02:24 CIO4988 ICU-C12) Document 04/08/19 03:00 FBT8345 (Rec: 04/08/19 03:26 KSL8293 ICU-C12) Document 04/08/19 04:00 TQJ0598 (Rec: 04/08/19 04:33 RPK1457 ICU-C12) Document 04/08/19 05:00 IDI8998 (Rec: 04/08/19 05:03 YRZ0624 ICU-C12) Document 04/08/19 05:12 VSK6379 (Rec: 04/08/19 05:12 EFO1794 ICU-C14) Document 04/08/19 07:54 KGT9654 (Rec: 04/08/19 07:55 MDN8001 ICU-M35) Document 04/08/19 09:00 NKL6836 (Rec: 04/08/19 09:26 ANT4161 ICU-C12) Document 04/08/19 10:00 LSG8311 (Rec: 04/08/19 10:34 TDQ5246 ICU-C12) Document 04/08/19 14:00 WQE6380 (Rec: 04/08/19 14:37 ARS3912 ICU-C10) Document 04/08/19 18:00 VND5870 (Rec: 04/08/19 18:24 WNB4286 ICU-C10) Document 04/08/19 19:47 XBT9394 (Rec: 04/08/19 19:47 NXP4176 ICU-M35) Document 04/08/19 23:00 USH6946 (Rec: 04/08/19 23:11 DNF1467 ICU-C16) Document 04/08/19 23:07 MJK3003 (Rec: 04/08/19 23:07 BGV0228 ICU-C11) Document 04/09/19 00:00 NBY9325 (Rec: 04/09/19 01:11 EHW5454 ICU-C11) Document 04/09/19 01:00 DEO0796 (Rec: 04/09/19 01:12 UNS2389 ICU-C11) Document 04/09/19 03:00 CDQ2279 (Rec: 04/09/19 03:08 NTE7038 ICU-C16) Document 04/09/19 05:00 MGY4599 (Rec: 04/09/19 05:19 RHI2619 ICU-C16) Document 04/09/19 06:00 TQG6065 (Rec: 04/09/19 06:10 SQP0241 ICU-C16) Document 04/09/19 07:00 AXY7780 (Rec: 04/09/19 07:44 PCH2402 ICU-C16) Document 04/09/19 08:00 KDD9636 (Rec: 04/09/19 09:41 ZEJ1606 ICU-C16) Document 04/09/19 09:00 SYQ1706 (Rec: 04/09/19 09:41 FHD9530 ICU-C16) Document 04/09/19 10:00 BHX5999 (Rec: 04/09/19 10:03 GUC0120 ICU-C16) Document 04/09/19 11:00 VXB6797 (Rec: 04/09/19 11:36 ARU9871 ICU-C16) Intake and Output Start: 04/09/19 11: 43 Freq: DAILY@0600,1400,2200 Status: Active Protocol: Created 04/09/19 11:43 BPK9914 (Rec: 04/09/19 11:43 QAO7042 ICU-C16) Document 04/09/19 12:00 YRL9513 (Rec: 04/09/19 12:03 FFU7502 ICU-C10) Document 04/09/19 13:28 HXC6694 (Rec: 04/09/19 13:28 FSM2744 MED-C11) Document 04/09/19 22:00 BXY6119 (Rec: 04/09/19 22:13 NGQ9890 MED-C09) Document 04/10/19 05:40 BEZ7358 (Rec: 04/10/19 05:40 IBO6203 MED-C09) Document 04/10/19 13:22 CGQ2095 (Rec: 04/10/19 13:23 LVP0739 MED-C09) Document 04/10/19 21:57 RJM3735 (Rec: 04/10/19 21:57 XST9665 MED-C11) Document 04/11/19 06:00 DQG3729 (Rec: 04/11/19 06:34 NTW7103 MED-C11) - Physical Exam General Physical Exam Comment: Warm and well perfused - in no acute distress General: No Cyanosis, No Anemia, No Jaundice, No Clubbing Eye Exam: bilateral: PERRLA, Vision Field - full to confontation Skin: Normal: Rash Thyroid Function: Clinically Euthyroid -: Yes Goiter - 25 grams, No Thyroid Nodule Endocrine: No Central Obesity, No Acromegaly, No Vitiligo, No Flushing, No Acanthosis nigricans, No Violaceious striae, No Ju Syndrome, No Buccal pigmenatation, No Daniels Crease Pigmentation, No Other Lungs and Chest: Yes: Chest Expansion Full, Chest Expansion Symetrica, Percussion Note Resonant, Vessicular Breath Sounds. No: Crackles, Wheezes Heart Rate and Rhythm: Regular Additional Cardiovascular: Yes: Normal Heart Sounds. No: Heart Murmur Abdominal Exam: Yes: Soft, Bowel Sounds Present. No: Distention, Abdominal Mass , Hepatomegaly, Splenomegaly - Extremities Cranial Nerves II-XII Intact: Yes Limbs: Normal Power, Normal Tone, Normal Coordination - Neuro Orientation: A/O x3 Speech: Normal Results - Results Lab Results: Laboratory Results - last 24 hr 04/07/19 04/10/19 04/10/19 12:26 11:34 12:30 WBC RBC Hgb Hct MCV MCH MCHC RDW Plt Count MPV Neut % (Auto) Lymph % (Auto) Cross % (Auto) Eos % (Auto) Baso % (Auto) Absolute Neuts (auto) Absolute Lymphs (auto) Absolute Monos (auto) Absolute Eos (auto) Absolute Basos (auto) Absolute Nucleated RBC Nucleated RBC % Sodium Potassium Chloride Carbon Dioxide Anion Gap BUN Creatinine Est GFR ( Amer) Est GFR (Non-Af Amer) BUN/Creatinine Ratio Glucose Calcium Magnesium Total Bilirubin AST ALT Alkaline Phosphatase Total Protein Albumin Globulin Albumin/Globulin Ratio Chromogranin A 33 Cortisol 1.55 1.72 04/10/19 04/10/19 04/10/19 12:34 13:00 13:09 WBC RBC Hgb Hct MCV MCH MCHC RDW Plt Count MPV Neut % (Auto) Lymph % (Auto) Cross % (Auto) Eos % (Auto) Baso % (Auto) Absolute Neuts (auto) Absolute Lymphs (auto) Absolute Monos (auto) Absolute Eos (auto) Absolute Basos (auto) Absolute Nucleated RBC Nucleated RBC % Sodium Potassium Chloride Carbon Dioxide Anion Gap BUN Creatinine Est GFR ( Amer) Est GFR (Non-Af Amer) BUN/Creatinine Ratio Glucose Calcium Magnesium Total Bilirubin AST ALT Alkaline Phosphatase Total Protein Albumin Globulin Albumin/Globulin Ratio Chromogranin A Cortisol 9.27 1.67 8.40 04/11/19 04/11/19 06:16 06:16 WBC 6.0 RBC 3.21 L Hgb 10.9 L Hct 30 L MCV 94 MCH 34 H MCHC 36 RDW 14 Plt Count 243 MPV 7.3 L Neut % (Auto) 41.1 Lymph % (Auto) 49.0 Cross % (Auto) 6.5 Eos % (Auto) 2.3 Baso % (Auto) 1.1 Absolute Neuts (auto) 2.4 Absolute Lymphs (auto) 2.9 Absolute Monos (auto) 0.4 Absolute Eos (auto) 0.1 Absolute Basos (auto) 0.1 Absolute Nucleated RBC 0.0 Nucleated RBC % 0.0 Sodium 130 L Potassium 4.5 Chloride 101 Carbon Dioxide 24 Anion Gap 5 BUN 13 Creatinine 0.97 Est GFR ( Amer) 92.9 Est GFR (Non-Af Amer) 76.7 BUN/Creatinine Ratio 13.4 Glucose 100 Calcium 8.8 Magnesium 1.8 L Total Bilirubin 0.20 AST 31 ALT 21 Alkaline Phosphatase 61 Total Protein 6.1 L Albumin 3.6 Globulin 2.5 Albumin/Globulin Ratio 1.4 Chromogranin A Cortisol Radiology Results: Patient Name: MISHA OLOSN Medical Record#: [id number] Ordering Physician: Jeff Parisi MD Acct.#: [id number] : 1950 Age: 69 Sex: M Location: [facility]IVE [facility]ARE UNIT Exam Date: 04/08/19 1304 ADM Status: ADM IN Order Information: CT CHEST/ABD/PEL W Accession Number: [id number] CPT: 73302 INDICATION: Prostate cancer restaging. Post prostatectomy and appendectomy. COMPARISON: September 13, 2017 bone scan and September 13, 2017 CT TECHNIQUE: Multidetector CT images were obtained from the lung apices to the ischial tuberosities with 97 mL Omnipaque 300 IV contrast. No oral contrast administered limiting assessment of the gastrointestinal tract. Multiplanar reformation. CHEST REPORT: LUNG: Clear lungs and pleural spaces. Negative for pneumothorax. MEDIASTINUM / AXILLA: Negative for thoracic lymphadenopathy, cardiomegaly, or pericardial effusion. Normal diameter thoracic aorta. SOFT TISSUE: Bilateral gynecomastia. BONES: Unchanged osteoblastic metastatic lesion involving the T10 spinous process. No additional suspicious focal osseous lesions evident. CHEST IMPRESSION: Unchanged osteoblastic metastatic lesion at T10. ABDOMEN PELVIS REPORT: LIVER / GALLBLADDER / PANCREAS / SPLEEN: Unremarkable liver, gallbladder, pancreas, spleen. GASTROINTESTINAL TRACT: No CT abnormality of the upper GI or small bowel. Post appendectomy. Severe diverticulosis most prominent at the descending and sigmoid segments of the colon without findings of acute diverticulitis. Negative for ascites, free air, or significant hernias. MESENTERIC: Unremarkable. ADRENAL / GENITOURINARY: Normal adrenal glands. Unremarkable kidneys with symmetric contrast excretion. Unremarkable ureters and partially distended urinary bladder. Postsurgical change of prostatectomy. RETROPERITONEAL: Negative for lymphadenopathy. VASCULAR: Atherosclerotic plaque of normal diameter abdominal aorta and iliac arteries. Physiologic partial distention of the IVC. SOFT TISSUE: Unremarkable. BONES: Unchanged osteoblastic lesion at the medial aspect of the RIGHT femoral neck. No new suspicious focal osseous lesions evident. ABDOMEN PELVIS IMPRESSION: #. No evidence for visceral metastasis or lymphadenopathy. #. Unchanged osteoblastic lesion at the medial aspect of the RIGHT femoral neck. No new suspicious focal osseous lesions evident. <Electronically signed by Marcio Matias MD in [place]> 04/08/19 1603 Dictated By: Marcio Matias MD Dictated Date/Time: 04/08/19 1542 Transcribed Date/Time: 04/08/19 1542 Copy to: Patient Name: MISHA OLSON Medical Record#: [id number] Ordering Physician: Xavi BARAHONA Acct.#: [id number] : 1950 Age: 69 Sex: M Location: EMERGENCY DEPARTMENT Exam Date: 04/07/19 1526 ADM Status: [facility] Order Information: MRI BRAIN W/WO Accession Number: [id number] CPT: 46859 HISTORY: SIADH, h/o prostate CA, r/o [employer] dz COMPARISONS: None relevant available at the time of dictation. TECHNIQUE: The following sequences were obtained of the head: Sagittal T1- weighted images, axial T2-weighted images, axial FLAIR images, axial susceptibility weighted images, axial T1-weighted images. Additionally, axial diffusion-weighted images were obtained with calculated apparent diffusion coefficients. Additionally, sagittal, coronal, and axial T1-weighted images were obtained after contrast enhancement with a gadolinium-based intravenous contrast agent. FINDINGS: HEMORRHAGE/INFARCT: There is no hemorrhage or acute infarct. MASSES/SHIFT: There is no mass or shift. EXTRA-AXIAL SPACES/MENINGES: There are no extra-axial fluid collections. SULCI AND VENTRICLES: The sulci and ventricles are normal in size and position for the patient's stated age. CEREBRUM: There are no focal parenchymal abnormalities. BRAINSTEM: There are no focal parenchymal abnormalities. CEREBELLUM: There are no focal parenchymal abnormalities. The cerebellar tonsils are normal in size and position. SELLA: There is thickening of the infundibulum with a superiorly convex border to the pituitary. PINEAL: The pineal region is clear. CP ANGLE/TEMPORAL BONES: The labyrinthine structures are grossly normal. VESSELS: Normal flow-voids are noted within the visualized vertebral vasculature. DIFFUSION ABNORMALITIES: There are no diffusion abnormalities. PARANASAL SINUSES/MASTOIDS: The paranasal sinuses are clear. ORBITS: The orbits are unremarkable. BONES AND SOFT TISSUE: No bone or soft tissue abnormalities are noted. OTHER: None IMPRESSION: THERE IS THICKENING OF THE INFUNDIBULUM WITH A SUPERIOR CONVEX BORDER TO THE PITUITARY GLAND. GIVEN THE CLINICAL HISTORY, THIS MAY REPRESENT AN INFLAMMATORY OR NEOPLASTIC PROCESS OF THE SELLA. THIS WOULD BE AN ATYPICAL PATTERN OF METASTASIS FOR PROSTATE CANCER, THOUGH METASTATIC DISEASE IS WITHIN THE DIFFERENTIAL. IF CLINICALLY INDICATED, THIS CAN BE BETTER EVALUATED WITH PITUITARY PROTOCOL MRI OF THE BRAIN. <Electronically sPatient Name: MISHA OLSON Medical Record#: [id number] Ordering Physician: [id number] 1950 Age: 69 Sex: M Location: [address] [place] [address] - MEDICAL Exam Date: 04/10/19 0800 ADM Status: ADM IN Order Information: MRI BRAIN W/WO Accession Number: [id number] CPT: 22777 INDICATION: SIADH COMPARISON: April 07, 2019 brain MRI TECHNIQUE: Sagittal T1, axial T1, T2, susceptibility, FLAIR and diffusion- weighted images were obtained. In addition, axial, sagittal and coronal T1-weighted images were obtained following intravenous injection of 15 ml of ProHance contrast. FINDINGS: There is smooth thickening of the midline infundibulum (up to 4 mm). The pituitary demonstrates normal size and upward concavity. There is a 5 x 3 mm focus of delayed enhancement in the right eccentric pituitary gland. The cavernous sinuses and cavernous ICA flow voids are preserved. There is no suprasellar extension or mass effect on the optic chiasm. No abnormal signal is identified within the brain parenchyma. There is no intracranial hemorrhage. No intracranial mass is identified. No abnormal enhancement is observed within the brain parenchyma. No abnormal diffusion restriction to suggest an acute or subacute infarct is evident. The midline and posterior fossa structures are preserved. The ventricles, sulci and fissures are normal in size and configuration for the patient's age. No abnormal enhancement is visualized within the extra-axial spaces. No extra-axial fluid collection is identified. Flow voids within the major intracranial vessels are present. The visualized paranasal sinuses are clear. The mastoid air cells are clear. The orbits are normal. The calvarial, skull base and upper cervical spine bone marrow is grossly normal in signal. IMPRESSION: 1. There is subtle smooth thickening and enhancement of the infundibulum. This can be seen in the setting of granulomatous or lymphocytic hypophysitis. Although it would be unusual pattern of disease, in the context of prostate cancer, metastatic disease cannot be excluded. 2. Incidentally, a 5 x 3 mm focus of delayed enhancement in the right eccentric pituitary gland could be patient representative of a pituitary microadenoma (biochemical correlation recommended). This finding is unlikely to account for SIADH. <Electronically signed by Sree Greenwood MD in [place]> 04/10/19 1128 Dictated By: Sree Greenwood MD Dictated Date/Time: 04/10/19 1113 Transcribed Date/Time: 04/10/19 1113 1 of 2 EKG Report: 04/07/19 Rate 50 QTc 471 QRSD 94 QRS axis 38 second degree heart block vs junctional rhythm with narrow complexes Assessment - Problem List Assessment: Patient Problems Adrenal insufficiency (Acute) Hypophysitis (Acute) Prostate cancer metastatic to bone (Acute) SIADH (syndrome of inappropriate ADH production) (Acute) Alcohol use disorder (Chronic 01/05/15) Cannabis use disorder, mild, abuse (Chronic 01/05/15) Mood disorder (Chronic 01/05/15) Patient is full code (Chronic 01/05/15) Plan: Hypophysitis (Acute), Adrenal insufficiency (Acute), SIADH (syndrome of inappropriate ADH production) (Acute) He presents with marked hyponatremia that has resolved with saline infusion/salt tablet and moderate water restriction. A cosyntropin test (low dose) suggests central adrenal insufficiency. His TSH is normal. I reviewed his MRI pituitary with neuroradiology. He has thickening of the infundibulum/stalk with increased enhancement characteristic of acute hypophysitis. This does not have the appearance of prostate metastatic disease. I will check his other anterior pituitary function. He declines high dose steroids for treatment. Given that his posterior pituitary symptoms and labs have improved, I think we can revisit this when we have a complete set of anterior pituitary hormone results. I will treat him with replacement glucocorticoids - dexamethasone 1 mg qdaily so that we can measure cortisol without any interference from prednisone in the cortisol assay. He will continue on the current water restriction 2 liters per day and also with his sodium tablets. He will require outpatient BMP measurements to check compliance,. I will follow up as an outpatient secondary diagnoses Prostate cancer metastatic to bone (Acute) Alcohol use disorder (Chronic 01/05/15) Cannabis use disorder, mild, abuse (Chronic 01/05/15) Mood disorder (Chronic 01/05/15) Patient is full code (Chronic 01/05/15) I spoke with the patient and explained these findings. I have offered outpatient follow up.
[2019-04-11] MEDS: Dexamethasone TAB* 1 MG PO SCH (10:57)
[2019-04-11 11:41] LABS: Free T4 0.53 ng/dL (0.61-1.12)
--- NOTE | 2019-04-11 11:42 | PN ---
Progress Note - Progress Note Date of Service: 04/11/19 SOAP: Subjective: [No significant concerns today. Seen by Dr Ray this morning. He reports he is feeling relatively well. No n/v, energy improving. Appetite good.] Objective: [ Vital Signs: Temp Pulse Resp BP Pulse Ox 98.1 F 60 18 104/56 97 04/11/19 07:45 04/11/19 07:45 04/11/19 09:32 04/11/19 07:45 04/11/19 07:45 Dexamethasone (Decadron Tab*) 1 mg PO DAILY [facility] Last Admin: 04/11/19 10:57 Dose: 1 mg Enoxaparin Sodium (Lovenox(*)) 40 mg SUBCUT Q24H [facility] Last Admin: 04/10/19 14:11 Dose: 40 mg Morphine Sulfate (Morphine Oral.Soln 10 Mg*) 15 mg PO TID PRN PRN Reason: PAIN - SEVERE Last Admin: 04/11/19 09:32 Dose: 15 mg Ondansetron HCl (Zofran Inj*) 4 mg IV Q4H PRN PRN Reason: NAUSEA/VOMITING Last Admin: 04/09/19 20:41 Dose: 4 mg Polyethylene Glycol/Electrolytes (Miralax*) 17 gm PO DAILY PRN PRN Reason: CONSTIPATION Senna (Senokot 8.6 Mg Tab*) 2 tab PO BID [facility] Sodium Chloride (Sodium Chloride Tab*) 1 gm PO TID [facility] Last Admin: 04/11/19 09:32 Dose: 1 gm Laboratory Results - last 24 hr 04/07/19 04/10/19 04/10/19 12:26 11:34 12:30 WBC RBC Hgb Hct MCV MCH MCHC RDW Plt Count MPV Neut % (Auto) Lymph % (Auto) Knott % (Auto) Eos % (Auto) Baso % (Auto) Absolute Neuts (auto) Absolute Lymphs (auto) Absolute Monos (auto) Absolute Eos (auto) Absolute Basos (auto) Absolute Nucleated RBC Nucleated RBC % Sodium Potassium Chloride Carbon Dioxide Anion Gap BUN Creatinine Est GFR ( Amer) Est GFR (Non-Af Amer) BUN/Creatinine Ratio Glucose Calcium Magnesium Total Bilirubin AST ALT Alkaline Phosphatase Total Protein Albumin Globulin Albumin/Globulin Ratio Chromogranin A 33 Cortisol 1.55 1.72 04/10/19 04/10/19 04/10/19 12:34 13:00 13:09 WBC RBC Hgb Hct MCV MCH MCHC RDW Plt Count MPV Neut % (Auto) Lymph % (Auto) Knott % (Auto) Eos % (Auto) Baso % (Auto) Absolute Neuts (auto) Absolute Lymphs (auto) Absolute Monos (auto) Absolute Eos (auto) Absolute Basos (auto) Absolute Nucleated RBC Nucleated RBC % Sodium Potassium Chloride Carbon Dioxide Anion Gap BUN Creatinine Est GFR ( Amer) Est GFR (Non-Af Amer) BUN/Creatinine Ratio Glucose Calcium Magnesium Total Bilirubin AST ALT Alkaline Phosphatase Total Protein Albumin Globulin Albumin/Globulin Ratio Chromogranin A Cortisol 9.27 1.67 8.40 04/11/19 04/11/19 06:16 06:16 WBC 6.0 RBC 3.21 L Hgb 10.9 L Hct 30 L MCV 94 MCH 34 H MCHC 36 RDW 14 Plt Count 243 MPV 7.3 L Neut % (Auto) 41.1 Lymph % (Auto) 49.0 Knott % (Auto) 6.5 Eos % (Auto) 2.3 Baso % (Auto) 1.1 Absolute Neuts (auto) 2.4 Absolute Lymphs (auto) 2.9 Absolute Monos (auto) 0.4 Absolute Eos (auto) 0.1 Absolute Basos (auto) 0.1 Absolute Nucleated RBC 0.0 Nucleated RBC % 0.0 Sodium 130 L Potassium 4.5 Chloride 101 Carbon Dioxide 24 Anion Gap 5 BUN 13 Creatinine 0.97 Est GFR ( Amer) 92.9 Est GFR (Non-Af Amer) 76.7 BUN/Creatinine Ratio 13.4 Glucose 100 Calcium 8.8 Magnesium 1.8 L Total Bilirubin 0.20 AST 31 ALT 21 Alkaline Phosphatase 61 Total Protein 6.1 L Albumin 3.6 Globulin 2.5 Albumin/Globulin Ratio 1.4 Chromogranin A Cortisol Exam: Gen: Relatively well appearing 69 yo male in NAD HEENT: MMM, no m/r/g CV: RRR, no m/r/g Resp: CTA, no w/c/r Abd: soft, nonTTP Ext: no edema Skin: no rashes] Assessment: [69 yo male with metastatic prostate CA, off therapy for over a year per pt request who presented with acute weakness found to be severely hyponatremic. 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 Am cortisol was quite low prompting concern of adrenal insufficiency driving his hyponatremia. Na has improved to 130 mmol/L and he is relatively asymptomatic at this time. MRI of the brain appears c/w hypophysitis, no evidence for [employer] metastases. ] Plan: [1. Hyponatremia secondary to central adrenal insufficiency as a result of acute hypophysitis - endocrinology consultation is greatly appreciated - etiology of hypophysitis is not clear, does not appear related to prostate CA - start dexamethasone [address] Ray's recommendations - Na improved to 130 mmol/L with mild fluid restriction and salt tabs following hypertonic saline infusion 2. Metastatic prostate CA, bony disease only - PSA stable, no evidence of POD Dispo: anticipate dc home tomorrow. Will require close outpt follow up
[2019-04-11 11:44] LABS: Prolactin 6.5 ng/mL (1.0-20.0)
[2019-04-11] MEDS: Enoxaparin(*) 40 MG/0.4 ML SYR SUBCUT SCH (14:33)
[2019-04-12 08:21] LABS: Calcium 9.4 mg/dL (8.6-10.3); EGFR African American 103.9 (>60); EGFR Non-African American 85.9 (>60); Potassium 4.7 mmol/L (3.5-5.0)
[2019-04-12] MEDS: Sodium Chloride TAB* 1 GM PO SCH (08:40)
[2019-04-12] MEDS: Senna TAB 8.6 mg* TAB PO SCH (08:40)
[2019-04-12] MEDS: Dexamethasone TAB* 1 MG PO SCH (08:40)
--- NOTE | 2019-04-12 09:11 | PN ---
Subjective - Subjective Reason for Note: Progress Note History: He is feeling improved today. 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 Hypophysitis (Acute) E23.6 Hypopituitarism (Acute) E23.0 Prostate cancer metastatic to bone (Acute) C61, C79.51 SIADH (syndrome of inappropriate ADH production) (Acute) Alcohol use disorder (Chronic 01/05/15) F10.99 Cannabis use disorder, mild, abuse (Chronic 01/05/15) F12.10 Mood disorder (Chronic 01/05/15) Patient is full code (Chronic 01/05/15) Z78.9 Current Medications: Current Medications Dexamethasone (Decadron Tab*) 1 mg PO DAILY [facility] Last Admin: 04/12/19 08:40 Dose: 1 mg Enoxaparin Sodium (Lovenox(*)) 40 mg SUBCUT Q24H [facility] Last Admin: 04/11/19 14:33 Dose: 40 mg Morphine Sulfate (Morphine Oral.Soln 10 Mg*) 15 mg PO TID PRN PRN Reason: PAIN - SEVERE Last Admin: 04/11/19 20:52 Dose: 15 mg Ondansetron HCl (Zofran Inj*) 4 mg IV Q4H PRN PRN Reason: NAUSEA/VOMITING Last Admin: 04/09/19 20:41 Dose: 4 mg Polyethylene Glycol/Electrolytes (Miralax*) 17 gm PO DAILY PRN PRN Reason: CONSTIPATION Senna (Senokot 8.6 Mg Tab*) 2 tab PO BID [facility] Last Admin: 04/12/19 08:40 Dose: 2 tab Sodium Chloride (Sodium Chloride Tab*) 1 gm PO TID [facility] Last Admin: 04/12/19 08:40 Dose: 1 gm Home Medications: Home Medications Medication Instructions Recorded Confirmed Type Bisacodyl EC TAB* [Dulcolax EC 5 mg PO DAILY PRN 04/07/19 04/07/19 History TAB*] Morphine Sulfate 15 mg PO .2-3X/DAY 04/07/19 04/07/19 History Allergies: Allergies Allergy/AdvReac Type Severity Reaction Status Date / Time No Known Allergies Allergy Verified 04/07/19 12:41 - Social History 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 [employer] Objective - Vital Signs Vital Signs: Vital Signs 04/11/19 04/11/19 04/11/19 09:32 11:22 12:21 Temperature 97.9 F Pulse Rate 55 Respiratory 18 16 18 Rate Blood Pressure 132/61 (mmHg) O2 Sat by Pulse 100 Oximetry 04/11/19 04/11/19 04/11/19 16:08 19:15 20:00 Temperature 98.2 F Pulse Rate 58 87 Respiratory 16 18 18 Rate Blood Pressure 119/63 127/58 (mmHg) O2 Sat by Pulse 100 98 Oximetry 04/11/19 04/11/19 04/12/19 20:52 23:19 03:30 Temperature 97.6 F 97.8 F Pulse Rate 70 67 Respiratory 16 16 16 Rate Blood Pressure 102/53 111/70 (mmHg) O2 Sat by Pulse 99 97 Oximetry 04/12/19 04/12/19 04/12/19 07:11 07:12 07:18 Temperature 98.2 F Pulse Rate 66 Respiratory 18 18 18 Rate Blood Pressure 110/64 (mmHg) O2 Sat by Pulse 99 Oximetry - Intake and Output Intake and Output: Intake & Output 04/09/19 04/10/19 04/11/19 04/12/19 11:59 11:59 11:59 11:59 Intake Total 7969 942 2292 680 Output Total 1475 225 Balance -985 394 1551 680 Weight 161 lb 2.526 oz 161 lb 2.526 oz Intake: IV Fluids 107 3% NS 107 IVPB 155 3% NS 155 Oral 580 382 6062 680 Output: Urine 1475 225 Almaraz 0 Other: Estimated Void Medium Medium # Bowel Movements 0 # Voids 2 1 ADLs: Meal Record Start: 04/07/19 19: 36 Freq: 09,13,18 Status: Complete Protocol: Created 04/07/19 19:36 System (Rec: 04/07/19 19:36 System ICU-C25) Document 04/08/19 09:00 [id number] (Rec: 04/08/19 09:27 [id number] ICU-C12) Document 04/08/19 13:00 [id number] (Rec: 04/08/19 14:34 [id number] ICU-C10) Document 04/08/19 18:00 [id number] (Rec: 04/08/19 18:22 [id number] ICU-C10) ADLs: Meal Record Start: 04/09/19 11: 43 Freq: DAILY@0900,1400,1800 Status: Active Protocol: Created 04/09/19 11:43 [id number] (Rec: 04/09/19 11:43 [id number] ICU-C16) Document 04/09/19 13:28 [id number] (Rec: 04/09/19 13:28 [id number] MED-C11) Document 04/09/19 18:00 [id number] (Rec: 04/09/19 18:27 [id number] MED-C09) Document 04/10/19 09:00 [id number] (Rec: 04/10/19 09:47 [id number] MED-C09) Document 04/10/19 13:22 [id number] (Rec: 04/10/19 13:23 IUQ8431 MED-C09) Document 04/10/19 18:00 [id number] (Rec: 04/10/19 18:15 [id number] MED-C11) Document 04/11/19 08:59 [id number] (Rec: 04/11/19 08:59 [id number] MED-C11) Document 04/11/19 13:40 [id number] (Rec: 04/11/19 13:41 GFY0142 MED-C09) Document 04/11/19 18:00 [id number] (Rec: 04/11/19 18:12 [id number] MED-C11) Intake and Output Start: 04/07/19 12: 08 Freq: Status: Cancelled Protocol: Created 04/07/19 12:08 System (Rec: 04/07/19 12:08 System [id number]) Intake and Output Start: 04/07/19 15: 25 Freq: Q2HR Status: Complete Protocol: Created 04/07/19 15:26 [id number] (Rec: 04/07/19 15:26 BKG DEVIN-BG12) Intake and Output Start: 04/07/19 19: 36 Freq: Q1HR Status: Complete Protocol: Created 04/07/19 19:36 System (Rec: 04/07/19 19:36 System ICU-C25) Document 04/07/19 20:00 [id number] (Rec: 04/07/19 20:59 [id number] ICU-C12) Document 04/07/19 21:00 UHJ3362 (Rec: 04/07/19 21:01 [id number] ICU-C12) Document 04/07/19 22:00 HDF1235 (Rec: 04/07/19 22:16 RCL0510 ICU-C12) Document 04/07/19 22:18 [id number] (Rec: 04/07/19 22:18 AFX2069 ICU-M35) Document 04/07/19 23:29 PGT8759 (Rec: 04/07/19 23:29 EKB4957 ICU-C14) Document 04/08/19 01:00 QJS3284 (Rec: 04/08/19 01:10 FWE4654 ICU-C06) Document 04/08/19 02:00 ROP0866 (Rec: 04/08/19 02:24 LCQ7395 ICU-C12) Document 04/08/19 03:00 QJS4635 (Rec: 04/08/19 03:26 [id number] ICU-C12) Document 04/08/19 04:00 VVL6654 (Rec: 04/08/19 04:33 [id number] ICU-C12) Document 04/08/19 05:00 BYB7153 (Rec: 04/08/19 05:03 EHG7536 ICU-C12) Document 04/08/19 05:12 OTR5091 (Rec: 04/08/19 05:12 IXV1803 ICU-C14) Document 04/08/19 07:54 UHV9155 (Rec: 04/08/19 07:55 TYG7416 ICU-M35) Document 04/08/19 09:00 IPR0022 (Rec: 04/08/19 09:26 [id number] ICU-C12) Document 04/08/19 10:00 HTS1275 (Rec: 04/08/19 10:34 JJK6758 ICU-C12) Document 04/08/19 14:00 QEF3721 (Rec: 04/08/19 14:37 CKX8497 ICU-C10) Document 04/08/19 18:00 RTY0405 (Rec: 04/08/19 18:24 IBP1063 ICU-C10) Document 04/08/19 19:47 DSN5893 (Rec: 04/08/19 19:47 CUZ5897 ICU-M35) Document 04/08/19 23:00 VXU2248 (Rec: 04/08/19 23:11 HCJ6689 ICU-C16) Document 04/08/19 23:07 PGB0147 (Rec: 04/08/19 23:07 [id number] ICU-C11) Document 04/09/19 00:00 GNX6194 (Rec: 04/09/19 01:11 BMW1321 ICU-C11) Document 04/09/19 01:00 ODW1321 (Rec: 04/09/19 01:12 [id number] ICU-C11) Document 04/09/19 03:00 ABQ5208 (Rec: 04/09/19 03:08 TVP2711 ICU-C16) Document 04/09/19 05:00 SWN3422 (Rec: 04/09/19 05:19 BVZ0009 ICU-C16) Document 04/09/19 06:00 [id number] (Rec: 04/09/19 06:10 OJX6832 ICU-C16) Document 04/09/19 07:00 LOA9553 (Rec: 04/09/19 07:44 WHY0598 ICU-C16) Document 04/09/19 08:00 FWY9353 (Rec: 04/09/19 09:41 QNV4001 ICU-C16) Document 04/09/19 09:00 CFC3799 (Rec: 04/09/19 09:41 JIH1418 ICU-C16) Document 04/09/19 10:00 TTP1341 (Rec: 04/09/19 10:03 GDX5522 ICU-C16) Document 04/09/19 11:00 ORM5700 (Rec: 04/09/19 11:36 [id number] ICU-C16) Intake and Output Start: 04/09/19 11: 43 Freq: DAILY@0600,1400,2200 Status: Active Protocol: Created 04/09/19 11:43 [id number] (Rec: 04/09/19 11:43 GLQ1024 ICU-C16) Document 04/09/19 12:00 [id number] (Rec: 04/09/19 12:03 [id number] ICU-C10) Document 04/09/19 13:28 JIP1361 (Rec: 04/09/19 13:28 [id number] MED-C11) Document 04/09/19 22:00 CDE6221 (Rec: 04/09/19 22:13 HKE1522 MED-C09) Document 04/10/19 05:40 [id number] (Rec: 04/10/19 05:40 VQX7530 MED-C09) Document 04/10/19 13:22 PJR8995 (Rec: 04/10/19 13:23 AIA4099 MED-C09) Document 04/10/19 21:57 [id number] (Rec: 04/10/19 21:57 [id number] MED-C11) Document 04/11/19 06:00 ILP8730 (Rec: 04/11/19 06:34 JTU0531 MED-C11) Document 04/11/19 13:40 [id number] (Rec: 04/11/19 13:41 FRO3408 MED-C09) Document 04/11/19 22:00 [id number] (Rec: 04/11/19 23:27 PGU3095 MED-C02) Document 04/12/19 05:34 [id number] (Rec: 04/12/19 05:34 [id number] MED-C02) Results - Results Lab Results: Laboratory Results - last 24 hr 04/10/19 04/11/19 04/12/19 11:34 10:28 07:48 Sodium 133 L Potassium 4.7 Chloride 102 Carbon Dioxide 25 Anion Gap 6 BUN 15 Creatinine 0.88 Est GFR ( Amer) 103.9 Est GFR (Non-Af Amer) 85.9 BUN/Creatinine Ratio 17.0 Glucose 98 Calcium 9.4 Free T4 0.53 L Total T3 80 L Prolactin 6.5 ACTH 22 Assessment - Problem List Assessment: Patient Problems Adrenal insufficiency (Acute) Central hypothyroidism (Acute) Hypophysitis (Acute) Hypopituitarism (Acute) Prostate cancer metastatic to bone (Acute) SIADH (syndrome of inappropriate ADH production) (Acute) Alcohol use disorder (Chronic 01/05/15) Cannabis use disorder, mild, abuse (Chronic 01/05/15) Mood disorder (Chronic 01/05/15) Patient is full code (Chronic 01/05/15) Plan: ) Hypophysitis (Acute) Hypopituitarism (Acute)SIADH (syndrome of inappropriate ADH production) (Acute) He has evidence of failure of the thyrotrophs (TSH) and corticotrophs (ACTH) in the anterior pituitary gland. I cannot tell about the gonadotrophs with his prostate cancer. His lactotrophs (prolacti) are normal and the somatotrophs (GH/IGF-1) are unknown - pending. His posterior pituitary had evidence of SIADH - it is difficult to know if this has resolved. It is possible he may develop diabetes insipidus. He declined steroid treatment, but accepts replacement therapy Adrenal insufficiency (Acute) We will send him home on dexamethasone 1 mg daily. This will allow me to measure cortisol levels without a problem with the assay Central hypothyroidism (Acute) I will start him on thyroid hormone - interestingly the TSH is in the upper half of the range - but it should be much higher. Secondary diagnoses Prostate cancer metastatic to bone (Acute) Alcohol use disorder (Chronic 01/05/15) Cannabis use disorder, mild, abuse (Chronic 01/05/15) Mood disorder (Chronic 01/05/15) Patient is full code (Chronic 01/05/15) I printed ouit information for the patient articles on hypopituitarism, pituitary gland and also SIADH. He has reading barriers and hence I need to use images. He agrees to see me as an outpatient in the next few days for education.
[2019-04-12] MEDS ORDERED: Levothyroxine TAB* 100 MCG TAB PO ONE (09:12)
--- NOTE | 2019-04-12 11:10 | DS ---
- Discharge Summary Admission Date: 04/07/19 Discharge Date: 04/12/19 Discharge Diagnosis: 1. Hypophysitis: now on steroids and thyroid replacement, plan f/u with endocrinology 2. SIADH: r/t primary diagnosis, improved, home on salt tabs and fluid restriction 3. Prostate Cancer: off therapy with no evidence for progressive disease 4. Cancer related pain: cont. narcotics, no change in dose Discharge Medications: Medication Instructions Recorded Confirmed Type Bisacodyl EC TAB* [Dulcolax EC 5 mg PO DAILY PRN 04/07/19 04/07/19 History TAB*] Dexamethasone TAB* [Decadron TAB*] 1 mg PO DAILY #30 tab 04/12/19 Rx Morphine Sulfate 15 mg PO TID PRN #0 04/12/19 04/07/19 Rx Polyethylene Glycol 3350* 17 gm PO DAILY PRN packet 04/12/19 Rx [Miralax*] Senna TAB 8.6 mg* [Senokot 8.6 mg 2 tab PO BID #0 tab 04/12/19 Rx TAB*] Sodium Chloride TAB* 1 gm PO BID #60 tab 04/12/19 Rx Diet: As tolerated Activity: As tolerated Disposition: Home Condition: Good Hospital Course: Please see admission note for full H&P, however briefly Mr. Soliz is well known to our service due to his diagnosis of metastatic (bone only) prostate cancer off therapy per patient preference. Mr. Soliz presented to the ER on 01/15 with complaint of weakness and dizziness started approx. 2 days prior. Work-up revealed significant hyponatremia with Na+ 111 mmol/L consistent with SIADH with relatively low serum osmolality, high urine osmolality, and high urine sodium. He was admitted to the ICU for hypertonic saline and work-up for etiology of his hyponatremia. MRI of the brain revealed thickening of the infundibulum with a superior convex border to the pituitary gland. His sodium improved overnight and he was transitioned to oral sodium tabs. CT of the chest , abd., and pelvis on 04/08/19 was negative for new metastatic disease with stable osteoblastic lesions. His PSA was stable @ 1.375. He was transferred out of the ICU on 04/09/19 following stability of his sodium on oral medications only. His AM cortisol was quite low (1.67 mcg/dL) and Dr. Ray was consulted. Subsequently a low dose cosyntropin test was completed suggesting adrenal insufficiency with MRI findings consistent with acute hypophysitis. This does not appear to be related to his underlying prostate cancer. Mr. Soliz was hesitant to initiate high dose steroids but did agree to dexamethasone 1 mg daily. He has been maintained on a 2 L fluid restriction and his sodium is now 133 mmol/L. At this time he is stable for discharge in good condition. He will be discharged on salt tabs (though decreased from TID to BID), dexamethasone 1 mg daily, and thyroid replacement as per endocrinology. He has been instructed to follow-up with Dr. Ray for further management and education later this week. He is encouraged to contact his primary care doctor for follow -up in the next 4-6 weeks, and will follow-up with his oncology team in 1 month. Mr. Soliz states good understanding of his plan to this parts data writer and denied further questions or concerns. Follow-up: Dr. Ray (endocrinology) 04/14/19, office to contact pt. regarding appt. Dr. Chavez (primary care) 4-6 weeks, call to make appt. Dr. Parisi (oncology) 05/10/19 @ 1100
[2019-04-12 12:07] LABS: Human Growth Hormone 0.06 ng/mL
[2019-04-12 12:55] VITALS: BP 132/70
[2019-04-13 15:29] LABS: IGF1 Z-score -2.33 SD
== END 2019-04-12 13:45 | disposition home or self-care (01) | DRG 644 ==
LOC: ED 11:17 → ICU 14:51 → MED 04-09 11:45
PROVIDERS: ADMIT Internal Medicine Hematology & Oncology; ATTEND Internal Medicine Hematology & Oncology
DX: E22.2 Syndrome of inappropriate secretion of antidiuretic hormone (principal); C79.51 Secondary malignant neoplasm of bone; E27.40 Unspecified adrenocortical insufficiency; G89.3 Neoplasm related pain (acute) (chronic); E23.6 Other disorders of pituitary gland; M54.5 Low back pain; E03.8 Other specified hypothyroidism; E23.0 Hypopituitarism; C61 Malignant neoplasm of prostate; F12.10 Cannabis abuse, uncomplicated; Z79.899 Other long term (current) drug therapy; Z87.891 Personal history of nicotine dependence
CPT/HCPCS: 36415; 70553; 71260; 74177; 80048; 80053; 81003; 81015; 82024; 82533; 83003; 83735; 83930; 83935; 84146; 84153; 84300; 84305; 84439; 84443; 84479; 84484; 85025; 86316; 87086; 87641; 93005; 99223; 99232; 99239; 99285; A9270-GY; A9579; J0834; J1650; J2405; Q9967

== ENCOUNTER 2019-04-28 16:30 | Inpatient (IN) | payer MEDICARE, MEDICAID ==
--- NOTE | 2019-04-28 17:12 | ED ---
Dizziness - HPI Summary HPI Summary: Pt is a 69 y/o M presenting to the ED brought in by EMS for dizziness. Pt states it first came on this morning when he was in the shower, and it worsened when he got out of the shower. It did not get better, so he called EMS. Currently, hes feeling okay. Sx worsened by movement. Hx bone cancer and recent admission for hyponatremia. Pt states he recently stopped taking all of his medications because they gave him headaches. He denies other sx, including fever or diaphoresis. - History Of Current Complaint Chief Complaint: EDWeakness Stated Complaint: WEAKNESS , Time Seen by Provider: 04/28/19 17:01 Hx Obtained From: Patient Onset/Duration: Suddenly Timing: Hours Severity Initially: Moderate Severity Currently: Mild Character: Dizzy Aggravating Factor(s): Other - moement Alleviating Factor(s): Rest Associated Signs And Symptoms: Negative: Diaphoresis, Fever - Allergies/Home Medications Allergies/Adverse Reactions: Allergies Allergy/AdvReac Type Severity Reaction Status Date / Time No Known Allergies Allergy Verified 04/07/19 12:41 PMH/Surg Hx/FS Hx/Imm Hx Previously Healthy: Yes Endocrine/Hematology History: Denies: Hx Diabetes, Hx Thyroid Disease, Hx Anemia Cardiovascular History: Denies: Hx Congestive Heart Failure, Hx Hypertension, Hx Pacemaker/ICD Respiratory History: Denies: Hx Asthma, Hx Chronic Obstructive Pulmonary Disease (COPD) GI History: Denies: Hx Jaundice, Hx Ulcer History: Reports: Other Problems/Disorders - prostate CA Denies: Hx Renal Disease Musculoskeletal History: Denies: Hx Scoliosis Sensory History: Reports: Hx Contacts or Glasses Denies: Hx Hearing Aid Opthamlomology History: Reports: Hx Contacts or Glasses Neurological History: Reports: Other Neuro Impairments/Disorders - CHRONIC LBP Denies: Hx Headaches Psychiatric History: Reports: Hx Anxiety, Hx Depression, Hx of Violent Episodes Against Others Denies: Hx Eating Disorder, Hx Panic Disorder - Cancer History Cancer Type, Location and Year: prostate cancer - Surgical History Surgery Procedure, Year, and Place: Prostatectomy 2008, appendectomy 1966 Infectious Disease History: No Infectious Disease History: Denies: Hx Hepatitis, Hx Human Immunodeficiency Virus (HIV), History Other Infectious Disease, Traveled Outside the [place] in Last 30 Days - Family History Known Family History: Negative: Cardiac Disease, Hypertension, Diabetes - Social History Alcohol Use: None Alcohol Amount: unknown Hx Substance Use: Yes Substance Use Type: Reports: None Substance Use Comment - Amount & Last Used: unknown Hx Tobacco Use: Yes Smoking Status (MU): Heavy Every Day Tobacco Smoker Type: Cigarettes Amount Used/How Often: 3/4 PPD Length of Time of Smoking/Using Tobacco: 30YRS Have You Smoked in the Last Year: Yes Review of Systems Negative: Fever, Skin Diaphoresis Neurological: Other - dizziness All Other Systems Reviewed And Are Negative: Yes Physical Exam - Summary Physical Exam Summary: Appearance: The patient is well-nourished in no acute distress and in no acute pain. Skin: The skin is warm and dry, and skin color reflects adequate perfusion. HEENT: The head is normocephalic and atraumatic. The pupils are equal and reactive. The conjunctivae are clear and without drainage. Nares are patent and without drainage. Mouth reveals moist mucous membranes, and the throat is without erythema and exudate. The external ears are intact. The ear canals are patent and without drainage. The tympanic membranes are intact. Neck: The neck is supple with full range of motion and non-tender. There are no carotid bruits. There is no neck vein distension. Respiratory: Chest is non-tender. Lungs are clear to auscultation and breath sounds are symmetrical and equal. Cardiovascular: Heart is regular rate and rhythm. There is no murmur or rub auscultated. There is no peripheral edema and pulses are symmetrical and equal. Abdomen: The abdomen is soft and non-tender. There are normal bowel sounds heard in all four quadrants and there is no organomegaly palpated. Musculoskeletal: There is no back tenderness noted. Extremities are non-tender with full range of motion. There is good capillary refill. There is no peripheral edema or calf tenderness elicited. Neurological: Patient is alert and oriented to person, place and time. The patient has symmetrical motor strength in all four extremities. Cranial nerves are grossly intact. Deep tendon reflexes are symmetrical and equal in all four extremities. Psychiatric: The patient has an appropriate affect and does not exhibit any anxiety or depression. Triage Information Reviewed: Yes Vital Signs On Initial Exam: Initial Vitals Temp Pulse Resp BP Pulse Ox 98 F 72 18 101/85 96 04/28/19 16:59 04/28/19 16:59 04/28/19 16:59 04/28/19 16:59 04/28/19 16:59 Vital Signs Reviewed: Yes Procedures - Sedation Patient Received Moderate/Deep Sedation with Procedure: No Diagnostics - Vital Signs Vital Signs Temp Pulse Resp BP Pulse Ox 04/28/19 16:59 98 F 72 18 101/85 96 - Laboratory Result Diagrams: 04/28/19 17:26 04/29/19 06:19 Lab Statement: Any lab studies that have been ordered have been reviewed, and results considered in the medical decision making process. Dizzy Course/Dx - Course Course Of Treatment: Mr. Soliz presented for weakness. His vitals are OK aside from a 'soft' blood pressure. Labs are pending at this time. - Diagnoses Provider Diagnoses: Adrenal crisis, Weakness Discharge ED - Sign-Out/Discharge Documenting (check all that apply): Patient Departure - Discharge Plan Condition: Stable Disposition: ADMITTED TO [facility] - Billing Disposition and Condition Condition: STABLE Disposition: Admitted to [facility] - Attestation Statements Document Initiated by Scribe: Yes Documenting Scribe: Lisa Urirate Provider For Whom Marci is Documenting (Include Credential): Ace Ritchie MD. Scribe Attestation: Lisa Laws, scribed for Ace Ritchie MD. on 04/29/19 at 0902. Scribe Documentation Reviewed: Yes Provider Attestation: The documentation as recorded by the scribLisa cardenas accurately reflects the service I personally performed and the decisions made by , Ace Ritchie MD. Status of Scribe Document: Viewed
[2019-04-28 17:34] LABS: ABS Eosinophils 0.1 10^3/ul (0-0.6); ABS Lymphocytes 1.1 10^3/ul (1.0-4.8); ABS Monocytes 0.3 10^3/ul (0-0.8); ABS Neutrophils 8.2 10^3/ul (1.5-7.7); Eosinophil % 1.3 %; Hematocrit 40 % (42-52); Lymphocyte % 11.7 %; Mean Corpuscular HGB Conc 35 g/dL (31-36); Mean Corpuscular Hemoglobin 34 pg (27-31); Mean Corpuscular Volume 96 fL (80-94); Mean Platelet Volume 7.2 fL (7.4-10.4); Nucleated Red Blood Cells % 0.1; Platelet Count 294 10^3/uL (150-450); Red Blood Count 4.14 10^6 /uL (4.18-5.48); Red Cell Distribution Width 15 % (10-15); White Blood Count 9.8 10^3/uL (3.5-10.8)
[2019-04-28 17:41] LABS: INR 0.97 (0.82-1.09)
[2019-04-28 18:16] LABS: TSH (Thyroid Stimulating Horm) 0.87 mcIU/mL (0.34-5.60)
[2019-04-28 18:34] LABS: Urine Appearance Clear; Urine Bilirubin Negative (Negative); Urine Blood Negative (Negative); Urine Color Yellow; Urine Glucose Negative (Negative); Urine Ketones Negative (Negative); Urine Nitrite Negative (Negative); Urine Protein 1+(30 mg/dL) (Negative); Urine Specific Gravity 1.025 (1.010-1.030); Urine Urobilinogen Negative (Negative)
[2019-04-28 18:36] LABS: Urine Bacteria Absent (Absent); Urine Red Blood Cell Absent (Absent); Urine White Blood Cell Trace(0-5/hpf) (Absent)
[2019-04-28 18:56] LABS: Albumin 4.4 g/dL (3.2-5.2); Albumin/Globulin Ratio 1.5 (1-3); Calcium 8.8 mg/dL (8.6-10.3); EGFR African American 81.2 (>60); EGFR Non-African American 67.1 (>60); Globulin 2.9 g/dL (2-4); Potassium 4.7 mmol/L (3.5-5.0); Total Bilirubin 0.6 mg/dL (0.2-1.0); Total Protein 7.3 g/dL (6.4-8.9)
--- NOTE | 2019-04-28 19:26 | ED ---
Progress - Progress Note Progress Note: Pt is a signout from Dr. Ritchie at 1900 on 04/28/2019 pending lab results. Course/Dx - Course Course Of Treatment: Dr. Fleming will admit the [place] [facility] Pt is agreeable with this plan. - Diagnoses Provider Diagnoses: Adrenal crisis, Weakness - Provider Notifications Discussed Care Of Patient With: Shazia Fleming - Dr. Fleming will admit the [place] [facility] Instructed by Provider To: Admit As Inpatient Discharge ED - Sign-Out/Discharge Documenting (check all that apply): Patient Departure - admit, Receiving Sign- Out Receiving patient FROM: Ace Ritchie - Discharge Plan Condition: Stable Disposition: ADMITTED TO [facility] - Billing Disposition and Condition Condition: STABLE Disposition: Admitted to [facility] - Attestation Statements Document Initiated by Marci: Yes Documenting Scribe: Maxi Chaudhary Provider For Whom Marci is Documenting (Include Credential): Denisse Andersen MD Scribe Attestation: Maxi Laws, scribed for Denisse Andersen MD on 04/29/19 at 0527. Scribe Documentation Reviewed: Yes Provider Attestation: The documentation as recorded by the Maxi holder accurately reflects the service I personally performed and the decisions made by , Denisse Andersen MD Status of Scribe Document: Viewed
[2019-04-28] MEDS ORDERED: Hydrocortisone INJ* 250 MG VIAL IV ONE (21:23)
[2019-04-28] MEDS ORDERED: NS 0.9% 1000 ML** 1,000 ML IV ONE ×2 (21:24)
[2019-04-28] MEDS ORDERED: Hydrocortisone INJ* 100 MG/2 ML VIAL (in pyxis) IV ONE (21:30)
[2019-04-28] MEDS ORDERED: Ketorolac INJ* 30 MG/ML 1 ML VIAL IV PUSH ONE (23:19)
[2019-04-29 02:25] LABS: Albumin 3.4 g/dL (3.2-5.2); Albumin/Globulin Ratio 1.4 (1-3); BUN/Creatinine Ratio 22.9 (8-20); Calcium 7.1 mg/dL (8.6-10.3); EGFR Non-African American 77.7 (>60); Globulin 2.4 g/dL (2-4); Total Bilirubin 0.5 mg/dL (0.2-1.0); Total Protein 5.8 g/dL (6.4-8.9)
--- NOTE | 2019-04-29 05:54 | ADMNOTE ---
Subjective Interval History: this is my HP 69 y/o M with hx of adrenal insufficiency, bone cancer presented to the ED with dizziness/lightheadedness. He recently stopped taking all of his medications because of insomnia and AMAYA. He said he just got angry and did not think too hard before stopping them. he is on chronic steroids and chronic opiates. His initial lab values are benign. He has been hypotensive, received boluses of fluids and steroids. His lightheadedness improving but still remained borderline hypotensive. Family History: Unchanged from Admission Social History: Unchanged from Admission Past Medical History: Unchanged from Admission Review of Systems - Measurements Intake and Output: Intake and Output Last 24 Hours 04/26/19 04/27/19 04/28/19 04/29/19 06:59 06:59 06:59 06:59 Intake Total 1999 Balance 1999 Weight 155 lb Intake: IV Fluids 1999 - Review of Systems Constitutional Symptoms: Positive: Weakness, Fatigue Negative: Weight Gain, Weight Loss, Fever, Night Sweats, Unexplained Falls, Other Dermatology: Negative: Normal, Rash, Skin Lesions, Cancer, Skin Lumps, Other HEENT: Negative: Normal, Change in Hearing, Vertigo, Dental Problems, Tinnitus, Sinus Problem, Other Eyes: Negative: Normal, Change in Vision, Double Vision, Eye Pain, Glaucoma, Cataract, Contacts or Glasses, Other Thyroid: Negative: Normal, Goiter, Thyroid Nodule, Cold Intolerance, Heat Intolerance , Sweatiness, Tremor, Frequent Defecation, Constipation, Palpitations, Primary Hypothyroidism, Primary Hyperthyroidism, Weight Loss, Weight Gain, Change in Skin/Hair, Change in Menstruation, Radiation Exposure, Other Pulmonary: Negative: Normal, Cough, Sputum, Hemoptysis, Wheezing, Respiratory Distress, Shortness of Breath, COPD, Asthma, Exercise Intolerance, Home Oxygen, Other Cardiology: Negative: Normal, Chest Pain, Shortness of Breath, Palpitations, Swelling of Ankles, Peripheral Vascular Dis, Edema, Faintness, Syncope, Claudication, Proximal NocturnalDyspnea, Orthopnoea, Other Gastroenterology: Negative: Normal, Abdominal Pain, Nausea, Vomiting, Anorexia, Indigestion, Difficulty Swallowing, Heartburn, Constipation, Diarrhea, Blood in Stools, Change in Bowel Habits, Haematemesis, Melena, Other Genital - Urinary: Negative: Normal, Dysuria, Hematuria, Polyuria, Nocturia, Other Musculoskeletal: Positive: Low Back Pain Negative: Joint Pain, Joint Stiffness, Arthritis, Osteoporosis, Sciatica, Joint Deformities, Kyphoscoliosis, Other Endocrinology: Positive: Thyroid Problems, Adrenal Problems Negative: Normal, Gonadal Problems, Family Hx Endocrine Disorders, Obesity, Diabetes Mellitus, Hyperglycemia, Hx Hypoglycemia, Diabetic Foot Ulcers, Calluses, Hirsutism, Menstrual Abnormalities, Polydipsia, Polyuria, Gonadal Problems, Gynecomastia, Pituitary disease, Other Hematologic/Lymphatic: Negative: Anemia, Easy Bruising, Hx Leukemia, Hx Lymphoma, Use of Anticoagulant, Use of Antiplatelet Drugs, Other Neurology: Negative: Normal, Headache, Migraines, Change in Vision, Diplopia, Dizziness , Change in Balancing, Change in Coordination, Change in Memory, Change in Speech, Change in Sphincter Function, Change in Walking, Numbness\Paresthesiae, Unexplained Weakness, Hx of Stroke\TIA, Hx of Seizures, Other Objective Active Medications: Heparin Sodium (Porcine) (Heparin Vial(*)) 5,000 units SUBCUT Q8HR [facility] Vital Signs - 8 hr 04/28/19 04/28/19 04/28/19 21:59 22:00 22:30 Temperature Pulse Rate Respiratory 21 20 18 Rate Blood Pressure 98/62 (mmHg) O2 Sat by Pulse Oximetry 04/28/19 04/28/19 04/28/19 22:52 22:59 23:00 Temperature Pulse Rate Respiratory 18 15 19 Rate Blood Pressure 99/57 102/56 (mmHg) O2 Sat by Pulse Oximetry 04/28/19 04/28/19 04/29/19 23:29 23:59 00:00 Temperature Pulse Rate Respiratory 19 18 18 Rate Blood Pressure 102/58 81/54 (mmHg) O2 Sat by Pulse Oximetry 04/29/19 04/29/19 04/29/19 00:02 00:04 00:07 Temperature Pulse Rate Respiratory 16 18 17 Rate Blood Pressure 83/54 88/54 (mmHg) O2 Sat by Pulse Oximetry 04/29/19 04/29/19 04/29/19 00:29 00:37 01:13 Temperature 97.8 F 97.5 F Pulse Rate 69 69 Respiratory 17 18 Rate Blood Pressure 93/51 93/51 82/54 (mmHg) O2 Sat by Pulse 97 98 Oximetry 04/29/19 04/29/19 01:15 02:45 Temperature 98.5 F Pulse Rate 68 Respiratory 18 20 Rate Blood Pressure 90/57 (mmHg) O2 Sat by Pulse 98 Oximetry Oxygen Devices in Use Now: None Appearance: NID Ears/Nose/Mouth/Throat: NL Teeth, Lips, Gums, Mucous Membranes Moist Neck: NL Appearance and Movements; NL JVP, Trachea Midline Respiratory: Symmetrical Chest Expansion and Respiratory Effort, Clear to Auscultation, Clear to Percussion Cardiovascular: NL Sounds; No Murmurs; No JVD Abdominal: NL Sounds; No Tenderness; No Distention Lymphatic: No Cervical Adenopathy Skin: No Rash or Ulcers Neurological: Alert and Oriented x 3, - - a bit sluggish Result Diagrams: 04/28/19 17:26 04/29/19 01:58 Assess/Plan/Problems-Billing Assessment: - Patient Problems (1) Adrenal insufficiency Current Visit: No Status: Acute Code(s): E27.40 - UNSPECIFIED ADRENOCORTICAL INSUFFICIENCY SNOMED Code(s): 330166382 Comment: secondary AI with his hx of pituitary failure on chronic steroids at home which he abruptly stopped now presenting with lightheadedness and HoTN stress dose steroids then transition to home therapy (2) Hypopituitarism Current Visit: No Status: Acute Code(s): E23.0 - HYPOPITUITARISM SNOMED Code(s): 63227589 Comment: on steroids and synthroid at home resume (3) Central hypothyroidism Current Visit: No Status: Acute Code(s): E03.8 - OTHER SPECIFIED HYPOTHYROIDISM SNOMED Code(s): 44159342 Comment: missed synthroid for 4 days, now only with HoTN mentating well will resume synthroid (4) SIADH (syndrome of inappropriate ADH production) Current Visit: No Status: Acute Comment: sodium level normal despite him stopping his sodium tablets will not resume sodium tablets He did receive boluses of fluid in the ED for his HoTN, will see what his next sodium levels will be (5) Hypophysitis Current Visit: No Status: Acute Code(s): E23.6 - OTHER DISORDERS OF PITUITARY GLAND SNOMED Code(s): 620992702 Comment: being followed outpatient Just had an MRI done a few days ago (6) DVT prophylaxis Current Visit: Yes Status: Acute Code(s): Z29.9 - ENCOUNTER FOR PROPHYLACTIC MEASURES, UNSPECIFIED SNOMED Code(s): 845817784 Comment: heparin scc (7) DNR (do not resuscitate) Current Visit: Yes Status: Acute Comment: signed a new MOLST form today (8) Prostate cancer metastatic to bone Current Visit: No Status: Acute Code(s): C61 - MALIGNANT NEOPLASM OF PROSTATE; C79.51 - SECONDARY MALIGNANT NEOPLASM OF BONE SNOMED Code(s): 932969077 Comment: on chronic opiates at home resume home meds tramadol 50 Q8H PRN (9) Insomnia Current Visit: Yes Status: Acute Code(s): G47.00 - INSOMNIA, UNSPECIFIED SNOMED Code(s): 029923213 Comment: melatonin
[2019-04-29] MEDS ORDERED: oxyCODONE/Acetamin 5/325 MG* TAB PO PRN (06:08)
[2019-04-29] MEDS ORDERED: Hydrocortisone INJ* 100 MG/2 ML VIAL (in pyxis) ONE (06:13)
[2019-04-29] MEDS ORDERED: NS 0.9% 1000 ML** 1,000 ML IV SCH (06:15)
[2019-04-29] MEDS: Heparin VIAL(*) 5000 UNITS/ML VIAL (FIVE THOUSAND) SUBCUT SCH ×2 (06:19→16:02)
[2019-04-29] MEDS: Hydrocortisone INJ* 100 MG/2 ML VIAL (in pyxis) IV SCH ×2 (06:19→07:57)
[2019-04-29] MEDS: Polyethylene Glycol 3350* 17 GM PACKET PO PRN ×2 (06:31→19:21)
[2019-04-29] MEDS: Levothyroxine TAB* 100 MCG TAB PO SCH (06:32)
[2019-04-29 06:55] LABS: BUN/Creatinine Ratio 20.2 (8-20); Calcium 7.3 mg/dL (8.6-10.3); EGFR African American 85.7 (>60); EGFR Non-African American 70.8 (>60); Potassium 4.1 mmol/L (3.5-5.0)
[2019-04-29] MEDS: Senna TAB 8.6 mg* TAB PO SCH ×2 (07:57→19:21)
--- NOTE | 2019-04-29 14:09 | PN ---
Subjective Date of Service: 04/29/19 Interval History: Pt reports still feeling light headed upon standing. BPs occasionally in the systolic 90s. Denies pain, n/v/c/d. No other symptoms. Hasn't been walking much. Objective Active Medications: Heparin Sodium (Porcine) (Heparin Vial(*)) 5,000 units SUBCUT Q8HR [facility] Last Admin: 04/29/19 06:19 Dose: 5,000 units Hydrocortisone Sodium Succinate (Solu-Cortef*) 50 mg IV Q8H [facility] Last Admin: 04/29/19 07:57 Dose: 50 mg Sodium Chloride (Ns 0.9% 1000 Ml) 1,000 mls @ 75 mls/hr IV PER RATE [facility] Last Admin: 04/29/19 08:12 Dose: 75 mls/hr Levothyroxine Sodium (Synthroid Tab*) 100 mcg PO DAILY@0600 [facility] Last Admin: 04/29/19 06:32 Dose: 100 mcg Melatonin (Melatonin) 3 mg PO BEDTIME [facility] Oxycodone/Acetaminophen (Percocet 5/325 Tab*) 1 tab PO Q4H PRN PRN Reason: PAIN - MODERATE Polyethylene Glycol/Electrolytes (Miralax (17 Gm Dose Isak)) 17 gm PO DAILY PRN PRN Reason: CONSTIPATION Last Admin: 04/29/19 06:31 Dose: 17 gm Senna (Senokot 8.6 Mg Tab*) 2 tab PO BID [facility] Last Admin: 04/29/19 07:57 Dose: 2 tab Tramadol HCl (Ultram*) 50 mg PO Q8H PRN PRN Reason: PAIN - MODERATE Vital Signs - 8 hr 04/29/19 04/29/19 04/29/19 07:15 08:00 11:15 Temperature 98.1 F 97.9 F Pulse Rate 65 66 Respiratory 18 18 16 Rate Blood Pressure 95/55 106/61 (mmHg) O2 Sat by Pulse 97 98 Oximetry Oxygen Devices in Use Now: None Appearance: well appearing, nad Eyes: No Scleral Icterus Ears/Nose/Mouth/Throat: Clear Oropharnyx, Mucous Membranes Moist Neck: NL Appearance and Movements; NL JVP, Trachea Midline Respiratory: Symmetrical Chest Expansion and Respiratory Effort, Clear to Auscultation Cardiovascular: NL Sounds; No Murmurs; No JVD, RRR Abdominal: NL Sounds; No Tenderness; No Distention, No Hepatosplenomegaly Extremities: No Edema Skin: No Rash or Ulcers Neurological: Alert and Oriented x 3 Result Diagrams: 04/28/19 17:26 04/29/19 06:19 Assess/Plan/Problems-Billing Assessment: 69M with metastatic prostate cancer off therapy, recent dx of hypophysitis/ hypopituitarism, presents with dizziness after stopping all medications. - Patient Problems (1) Hypopituitarism Comment: on steroids and synthroid at home resume (2) Adrenal insufficiency Comment: secondary AI with his hx of pituitary failure on chronic steroids at home which he abruptly stopped now presenting with lightheadedness and HoTN stress dose steroids then transition to home therapy (3) Prostate cancer metastatic to bone Comment: on chronic opiates at home resume home meds tramadol 50 Q8H PRN (4) DVT prophylaxis Comment: heparin scc (5) DNR (do not resuscitate)
[2019-04-29] MEDS: traMADol TAB* 50 MG PO PRN (19:21)
[2019-04-29] MEDS: Enoxaparin(*) 40 MG/0.4 ML SYR SUBCUT SCH (19:23)
[2019-04-29] MEDS: Melatonin 3 MG TAB PO SCH (21:21)
[2019-04-30] MEDS: Levothyroxine TAB* 100 MCG TAB PO SCH (06:11)
[2019-04-30] MEDS ORDERED: Glycerin ADULT SUPP PR ONE (07:40)
--- NOTE | 2019-04-30 07:44 | PN ---
Subjective Date of Service: 04/30/19 Interval History: No acute events overnight. Pt reported constipation. Was encouraged to ambulate yesterday, reports walking a few times after bowel regimen to go to bathroom and still intermittently having dizziness. Pt also reports very stressful home situation with son, who he is in conflict with. He states he is very depressed and thinking of hurting himself if he is to be discharge to return home. He curses and states he cannot do anything at home - no motivation to take medications or go to appointments. Feels like a burden on others. Switched from IV to PO steroids today. Objective Active Medications: Dexamethasone (Decadron Tab*) 1 mg PO DAILY [facility] Enoxaparin Sodium (Lovenox(*)) 40 mg SUBCUT BEDTIME [facility] Last Admin: 04/29/19 19:23 Dose: 40 mg Glycerin (Glycerin Adult Supp*) 1 supp [facility] Stop: 04/30/19 07:41 Levothyroxine Sodium (Synthroid Tab*) 100 mcg PO DAILY@0600 [facility] Last Admin: 04/30/19 06:11 Dose: 100 mcg Melatonin (Melatonin) 3 mg PO BEDTIME [facility] Last Admin: 04/29/19 21:21 Dose: 3 mg Oxycodone/Acetaminophen (Percocet 5/325 Tab*) 1 tab PO Q4H PRN PRN Reason: PAIN - MODERATE Polyethylene Glycol/Electrolytes (Miralax (17 Gm Dose Isak)) 17 gm PO DAILY PRN PRN Reason: CONSTIPATION Last Admin: 04/29/19 19:21 Dose: 17 gm Senna (Senokot 8.6 Mg Tab*) 2 tab PO BID [facility] Last Admin: 04/29/19 19:21 Dose: 2 tab Tramadol HCl (Ultram*) 50 mg PO Q8H PRN PRN Reason: PAIN - MODERATE Last Admin: 04/29/19 19:21 Dose: 50 mg Vital Signs - 8 hr 04/30/19 04/30/19 00:00 03:20 Pulse Rate 64 Respiratory 18 Rate Blood Pressure 102/62 100/54 (mmHg) O2 Sat by Pulse 97 Oximetry Oxygen Devices in Use Now: None Appearance: dysthymic, alert and interactive, in no acute distress Eyes: No Scleral Icterus Ears/Nose/Mouth/Throat: Clear Oropharnyx, Mucous Membranes Moist Neck: NL Appearance and Movements; NL JVP, Trachea Midline Respiratory: Symmetrical Chest Expansion and Respiratory Effort, Clear to Auscultation Cardiovascular: NL Sounds; No Murmurs; No JVD, RRR Abdominal: NL Sounds; No Tenderness; No Distention, No Hepatosplenomegaly Extremities: No Edema Skin: No Rash or Ulcers Neurological: Alert and Oriented x 3 Result Diagrams: 04/28/19 17:26 04/29/19 06:19 Assess/Plan/Problems-Billing Assessment: 69M with metastatic prostate cancer off therapy, recent dx of hypophysitis/ hypopituitarism, presents with dizziness after stopping all medications. - Patient Problems (1) Mood disorder Comment: Patient stating he suffers significant depression and expressing SI if he is to be discharged home. Has a history of MDD, possibly when he was using significant amounts of alcohol - pending psych consult (2) Hypopituitarism Comment: Hypophysitis seen on MRI Mar 2019. Endo consult at that time. - resume home dexamethasone 1mg daily - resume home levothyroxine 100mcg daily (3) Adrenal insufficiency Comment: Cosyntropin test last admission suggested central adrenal insufficiency. Now presents with lightheadedness and hypodtension after nonadherence to home medications. - s/p stress dose steroids, now on home dex 1 mg daily (4) Prostate cancer metastatic to bone Comment: No longer on treatment. - cont home Percocet prn severe pain - added tramadol 50 Q8H PRN moderate pain (5) DVT prophylaxis Comment: heparin scc (6) DNR (do not resuscitate)
[2019-04-30] MEDS: Dexamethasone TAB* 1 MG PO SCH (11:20)
[2019-04-30] MEDS: Senna TAB 8.6 mg* TAB PO SCH ×2 (11:20→21:25)
--- NOTE | 2019-04-30 11:55 | PN ---
Subjective - Subjective Reason for Note: Consultation Note History: Endocrinology: This patient has hypophysitis. Please refer to my consultation note 04/11/2019. I saw him as an outpatient 04/14/19. Here is my assessment and plan from that date (copied and pasted from my office EMR). Assessment & Plan hypophysitis He has no headache or vision change. 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 There are other infiltrative conditions that can mimic this, but these are very rare. It is unlikely this is due to metastatic prostate cancer as the appearance of the MRI was atypical for that. I will repeat the MRI pituitary in 3 months. He declined the use of steroids for treatment. I don't think this is a large problem. Also, he is not interested in a neurosurgical biopsy (not that a neurosurgeon would want to do this). I will just watch and wait hypopituitarism He has both anterior and posterior pituitary dysfunction central hypothyroidism He is now taking levothyroxine. 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 Check cortisol syndrome of inappropriate vasopressin secretion He is restricting fluid to < 2 l per day and taking salt tablets. He needs weekly lab tests. He may develop diabetes insipidus if enough damage has been inflicted on his posterior pituitary Provided syndrome of inappropriate antidiuretic hormone secretion (siadh): care instructions Check basic metabolic panel Check osmolality serum prostate cancer metastatic to bone per Dr. Parisi He couldn't go for his weekly labs, he was only taking 3/4 medication until 5 days ago and then stopped altogether. Today he feels light headed - not vertiginous. He is depressed and angry. Active Problems: Active Problems Adrenal insufficiency (Acute) E27.40 Cosyntropin test last admission suggested central adrenal insufficiency. Now presents with lightheadedness and hypodtension after nonadherence to home medications. - s/p stress dose steroids, now on home dex 1 mg daily Depression (Acute) F32.9 Hypopituitarism (Acute) E23.0 Hypophysitis seen on MRI Mar 2019. Endo consult at that time. - resume home dexamethasone 1mg daily - resume home levothyroxine 100mcg daily Non compliance w medication regimen (Acute) Z91.14 DNR (do not resuscitate) (Chronic) DVT prophylaxis (Chronic) Z29.9 heparin scc Mood disorder (Chronic 01/05/15) Patient stating he suffers significant depression and expressing SI if he is to be discharged home. Has a history of MDD, possibly when he was using significant amounts of alcohol - pending psych consult Prostate cancer metastatic to bone (Chronic) C61, C79.51 No longer on treatment. - cont home Percocet prn severe pain - added tramadol 50 Q8H PRN moderate pain Current Medications: Current Medications Dexamethasone (Decadron Tab*) 1 mg PO DAILY [facility] Last Admin: 04/30/19 11:20 Dose: 1 mg Enoxaparin Sodium (Lovenox(*)) 40 mg SUBCUT BEDTIME [facility] Last Admin: 04/29/19 19:23 Dose: 40 mg Levothyroxine Sodium (Synthroid Tab*) 100 mcg PO DAILY@0600 [facility] Last Admin: 04/30/19 06:11 Dose: 100 mcg Melatonin (Melatonin) 3 mg PO BEDTIME [facility] Last Admin: 04/29/19 21:21 Dose: 3 mg Oxycodone/Acetaminophen (Percocet 5/325 Tab*) 1 tab PO Q4H PRN PRN Reason: PAIN - SEVERE Polyethylene Glycol/Electrolytes (Miralax (17 Gm Dose Antonio)) 17 gm PO DAILY PRN PRN Reason: CONSTIPATION Last Admin: 04/29/19 19:21 Dose: 17 gm Senna (Senokot 8.6 Mg Tab*) 2 tab PO BID [facility] Last Admin: 04/30/19 11:20 Dose: Not Given Tramadol HCl (Ultram*) 50 mg PO Q8H PRN PRN Reason: PAIN - MODERATE Last Admin: 04/29/19 19:21 Dose: 50 mg Home Medications: Home Medications Medication Instructions Recorded Confirmed Type Bisacodyl EC TAB* [Dulcolax EC 5 mg PO DAILY PRN 04/07/19 04/28/19 History TAB*] Dexamethasone TAB* [Decadron TAB*] 1 mg PO DAILY #30 tab 04/12/19 04/28/19 Rx Levothyroxine TAB* [Synthroid 100 100 mcg PO DAILY #30 tab 04/12/19 04/28/19 Rx MCG TAB*] Morphine Sulfate 15 mg PO TID PRN #0 04/12/19 04/28/19 Rx Polyethylene Glycol 3350* [Miralax 17 gm PO DAILY PRN packet 04/12/19 04/28/19 Rx (17 GM DOSE ANTONIO)] Senna TAB 8.6 mg* [Senokot 8.6 mg 2 tab PO BID #0 tab 04/12/19 04/28/19 Rx TAB*] Sodium Chloride TAB* 1 gm PO BID #60 tab 04/12/19 04/28/19 Rx Allergies: Allergies Allergy/AdvReac Type Severity Reaction Status Date / Time No Known Allergies Allergy Verified 04/07/19 12:41 Objective - Vital Signs Vital Signs: Vital Signs 04/29/19 04/29/19 04/29/19 15:15 19:13 19:21 Temperature 98.1 F 98.1 F Pulse Rate 66 66 Respiratory 17 20 18 Rate Blood Pressure 112/64 95/51 (mmHg) O2 Sat by Pulse 100 98 Oximetry 04/29/19 04/29/19 04/30/19 21:22 22:45 00:00 Temperature 98.3 F Pulse Rate 65 Respiratory 16 18 Rate Blood Pressure 84/43 102/62 (mmHg) O2 Sat by Pulse 98 Oximetry 04/30/19 03:20 Temperature Pulse Rate 64 Respiratory 18 Rate Blood Pressure 100/54 (mmHg) O2 Sat by Pulse 97 Oximetry - Intake and Output Intake and Output: Intake & Output 04/27/19 04/28/19 04/29/19 04/30/19 11:59 11:59 11:59 11:59 Intake Total 2360 1410 Output Total 0 250 Balance 2360 1160 Weight 155 lb Intake: IV Fluids 2000 Oral 360 1410 Output: Urine 0 250 Other: Estimated Void Small # Voids 0 0 ADLs: Meal Record Start: 04/29/19 00: 00 Freq: DAILY@0900,1400,1800 Status: Active Protocol: Created 04/29/19 00:00 System (Rec: 04/29/19 00:00 System [id number]) Document 04/29/19 09:00 [id number] (Rec: 04/29/19 13:01 [id number] MED-C11) Document 04/29/19 14:00 [id number] (Rec: 04/29/19 15:07 [id number] MED-C11) Document 04/29/19 17:55 [id number] (Rec: 04/29/19 17:56 [id number] MED-C11) Document 04/30/19 09:00 [id number] (Rec: 04/30/19 10:33 [id number] MED-C11) Intake and Output Start: 04/28/19 17: 02 Freq: Status: Active Protocol: Created 04/28/19 17:02 System (Rec: 04/28/19 17:02 System [id number]) Intake and Output Start: 04/29/19 00: 00 Freq: DAILY@0600,1400,2200 Status: Active Protocol: Created 04/29/19 00:00 System (Rec: 04/29/19 00:00 System MED-C04) Document 04/29/19 06:00 [id number] (Rec: 04/29/19 06:34 [id number] MED-C05) Document 04/29/19 14:00 [id number] (Rec: 04/29/19 15:15 [id number] MED-C09) Document 04/29/19 22:00 [id number] (Rec: 04/29/19 23:42 [id number] MED-C15) Document 04/30/19 05:48 [id number] (Rec: 04/30/19 05:48 [id number] MED-C11) - Physical Exam General Physical Exam Comment: sitting in a chair, not cooperative with an examination. Results - Results Lab Results: Laboratory Tests 04/28/19 17:26 Sodium 137 Potassium 4.7 Chloride 107 Carbon Dioxide 20 L Anion Gap 10 BUN 24 Creatinine 1.09 BUN/Creatinine Ratio 22.0 H Glucose 86 Calcium 8.8 Total Bilirubin 0.60 AST 14 ALT 16 Alkaline Phosphatase 58 Troponin I 0.00 Total Protein 7.3 Albumin 4.4 Globulin 2.9 Albumin/Globulin Ratio 1.5 TSH 0.87 Assessment - Problem List Assessment: Patient Problems Adrenal insufficiency (Acute) Depression (Acute) Hypopituitarism (Acute) Non compliance w medication regimen (Acute) DNR (do not resuscitate) (Chronic) DVT prophylaxis (Chronic) Mood disorder (Chronic 01/05/15) Prostate cancer metastatic to bone (Chronic) Central hypothyroidism (Acute) Hypophysitis (Acute) Alcohol use disorder (Chronic 01/05/15) Cannabis use disorder, mild, abuse (Chronic 01/05/15) Patient is full code (Chronic 01/05/15) Plan: Non compliance w medication regimen (Acute) He found it too complicated to take his medications and have his lab tests. He didn't contact my office. Hypophysitis (Acute) He has hypophysitis and presented with SIADH. This appears to have resolved - his sodium is stable. Pituitary insufficiency: * Adrenal insufficiency (Acute) He stopped his cortisol - this is now being replaced. His light-headedness will resolve. I am treating him with dexamethasone so that I can measure his cortisol to determine when his hypophysitis resolves and if he has improvement in his cortisol. * Central hypothyroidism (Acute) TSH is not a measure of central hypothyroidism. 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 We won't replaced this owing to his prostate cancer. * Hypogonadism - I haven't tested this - but because of his prostate cancer we cannot replace this. * His prolactin is normal. Comorbidities: Depression (Acute) Secondary diagnoses: DNR (do not resuscitate) (Chronic) DVT prophylaxis (Chronic) Mood disorder (Chronic 01/05/15) Prostate cancer metastatic to bone (Chronic) Alcohol use disorder (Chronic 01/05/15) Cannabis use disorder, mild, abuse (Chronic 01/05/15) Patient is full code (Chronic 01/05/15) I explained to the patient he should comply with his medication and treatment. He states he doesn't believe in it. He was defensively aggressive. Clearly, he has major psycho-social barriers. These are being addressed by his admitting hospitalist team. I will add on cortisol and FT4/T3 total to ED labs.
[2019-04-30 12:45] LABS: Free T4 0.87 ng/dL (0.61-1.12)
--- NOTE | 2019-04-30 18:18 | CONS ---
CONSULTATION REPORT: DATE OF CONSULT: 04/30/19 IDENTIFYING DATA: Mr. Soliz is a 69-year-old physically disabled male, currently admitted to Medical for multiple chronic and disabling physical health issues, who was referred to Psychiatry for a consultation in the context of the patient verbalizing suicidal ideation and complaining of depression. CHIEF COMPLAINT: "I don't give a damn if I ." HISTORY OF PRESENT ILLNESS: This is a 69-year-old male with the diagnoses of hypophysitis, hypopituitarism, central hypothyroidism, adrenal cortical hypofunction, syndrome of inappropriate vasopressin secretions, and metastatic bone cancer from prostate. The patient reported to his medical team that he has been depressed and suicidal, triggering this consultation. Mr. Soliz reported during the assessment that he has been depressed for a couple of years and there was a time that he was started on some medications that he does not remember what which had terrible side effects, so he did not continue to take it. Recently, his depression got worse and he feels sad, cries frequently. His self-esteem is very low, feels angry inside. His self-worth is nonexistent as he says and he thinks about dying a lot, although he does not have any active plan how to commit suicide, but he would not mind dying at this time. There are a lot of stressors in his life including his disabling physical health conditions, having no support system to care or assist in his care. He even does not have somebody to take him to his medical appointments. He also has been experiencing difficulty keeping up with his lab works and medication managements, so at one point he stopped taking all his medications and his condition deteriorated to a point that he needed to be hospitalized on medical floor. Although he lives with his son, they do not talk to each other. Apparently, there is a temporary order of protection against him, and he has to go away during the weekend somewhere else because of the order of protection that he cannot be around his grandchildren. PAST PSYCHIATRIC HISTORY: Unremarkable. PAST MEDICAL HISTORY: As mentioned in HPI. Multiple acute and chronic physical health conditions. ALLERGIES: No known drug allergies. SUBSTANCE ABUSE HISTORY: Mr. Soliz reports that he used to be a heavy drinker and daily marijuana smoker, which he has not done for 7 or 8 months now and does not have any desire to go back to. He may have used some cocaine every now and then as well. FAMILY HISTORY: Unremarkable. Denies any family history of mental illness, also denies any history of attempted or completed suicide. PERSONAL AND SOCIAL HISTORY: As mentioned earlier, Mr. Soliz lives with his son and grandchildren; however, due to a temporary order of protection, he cannot be around his grand kids every other weekend when they are home. He is disabled and relies on his social security disability benefits. He shares the house with his son. 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 Does not have any benefit from that job. 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 He was once which ended up in divorce, have had multiple relationships as a young man and he is not in any relationship at this time. He was charged with felony at one point in his adulthood. Otherwise, does not have any legal problems. MENTAL STATUS EXAMINATION: Lying in bed, alert and oriented to time, place, and person. Mr. Soliz was not in any kind of physical distress at the time of examination. His speech was normal in all spheres. He described his mood as sad, observed affect appeared to be dysphoric. His intelligence appeared to be average as evidenced by his vocabulary and fund of knowledge. Memory functions were intact in all spheres. Continues to have suicidal thoughts without any plan. His thought processes are logical and goal directed. Thought content is devoid of any delusions. Denies any hallucinations. Also denies any active thoughts of harming self, but expresses his desire to physically harm his son. His insight and judgment appear to be fair to good. SUMMARY: This 69-year-old male with known history of alcohol and cannabis use disorder and history of depression in the past, who is currently admitted on medical floor with multiple physical health conditions including hypothyroidism which could be related to his depression as well. DIAGNOSTIC IMPRESSION: MENTAL HEALTH DIAGNOSES: Major depressive disorder, recurrent, severe, without psychotic features; rule out depression secondary to hypothyroidism. PHYSICAL HEALTH DIAGNOSES: Hypophysitis, hypopituitarism, central hypothyroidism, adrenal cortical hypofunction, syndrome of inappropriate vasopressin secretion, status post prostatic cancer with metastasis to bones. TREATMENT RECOMMENDATIONS: I do not see any reason to transfer this individual to behavioral science unit, rather he can be started on some antidepressant for which he verbalized his willingness. Risks, benefits, and alternatives to different antidepressants were discussed with him. He is willing to try Zoloft , hence my recommendation will be to try him on Zoloft 25 mg once a day and see how he tolerates it. If he does, then dose can be adjusted by his primary team on the medical unit or he can be referred to outpatient psychiatric clinic for medication management. He will also benefit from psychotherapeutic interventions because of his complicated life situation, for which he needs support and cognitive behavioral interventions. At this time, he does not appear to be capable of managing his ADLs and IADLs as well as complicated medications that he has, so something needs to be done with regard to either some nursing help at home or sending him to a long term, which he verbalized his understanding and willingness. At this time, I think he has the mental capacity to make those decisions, and I will recommend his primary team discuss this with him once again. Thank you very much for the consult. [id number]/[facility] #: [id number] RITA
[2019-04-30] MEDS: Enoxaparin(*) 40 MG/0.4 ML SYR SUBCUT SCH (21:21)
[2019-04-30] MEDS: Melatonin 3 MG TAB PO SCH (21:22)
[2019-04-30] MEDS: oxyCODONE/Acetamin 5/325 MG* TAB PO PRN (21:23)
[2019-05-01] MEDS: Levothyroxine TAB* 100 MCG TAB PO SCH (06:02)
[2019-05-01] MEDS: Sertraline* 25 MG TAB PO SCH (08:25)
[2019-05-01] MEDS: Dexamethasone TAB* 1 MG PO SCH (08:25)
[2019-05-01] MEDS: Senna TAB 8.6 mg* TAB PO SCH ×2 (08:26→20:42)
--- NOTE | 2019-05-01 08:30 | PN ---
Subjective Date of Service: 05/01/19 Interval History: No events overnight. BPs have largely recovered and pt without light headedness on standing. Orthostatics negative. Seen by psych yesterday and not recommended to tx to psych unit, instead to start SSRI. Pt amenable. Pt denies all symptoms. Only becomes visibly aggravated and anxious when it is mentioned that he is ready for discharge. Clearly expresses desire to be placed in SNF. States he cannot care for himself, take meds, or make it to appointments. Objective Active Medications: Dexamethasone (Decadron Tab*) 1 mg PO DAILY [facility] Last Admin: 05/01/19 08:25 Dose: 1 mg Enoxaparin Sodium (Lovenox(*)) 40 mg SUBCUT BEDTIME [facility] Last Admin: 04/30/19 21:21 Dose: Not Given Levothyroxine Sodium (Synthroid Tab*) 100 mcg PO DAILY@0600 [facility] Last Admin: 05/01/19 06:02 Dose: 100 mcg Melatonin (Melatonin) 3 mg PO BEDTIME [facility] Last Admin: 04/30/19 21:22 Dose: 3 mg Oxycodone/Acetaminophen (Percocet 5/325 Tab*) 1 tab PO Q4H PRN PRN Reason: PAIN - SEVERE Last Admin: 04/30/19 21:23 Dose: 1 tab Polyethylene Glycol/Electrolytes (Miralax (17 Gm Dose Isak)) 17 gm PO DAILY PRN PRN Reason: CONSTIPATION Last Admin: 04/29/19 19:21 Dose: 17 gm Senna (Senokot 8.6 Mg Tab*) 2 tab PO BID [facility] Last Admin: 05/01/19 08:26 Dose: Not Given Sertraline HCl (Zoloft*) 25 mg PO DAILY [facility] Last Admin: 05/01/19 08:25 Dose: 25 mg Tramadol HCl (Ultram*) 50 mg PO Q8H PRN PRN Reason: PAIN - MODERATE Last Admin: 04/29/19 19:21 Dose: 50 mg Vital Signs - 8 hr 05/01/19 03:28 Temperature 97.4 F Pulse Rate 54 Respiratory 16 Rate Blood Pressure 100/48 (mmHg) O2 Sat by Pulse 99 Oximetry Oxygen Devices in Use Now: None Appearance: well appearing man in NAD, visibly distressed when brought up that he is ready for DC Eyes: No Scleral Icterus Ears/Nose/Mouth/Throat: Clear Oropharnyx, Mucous Membranes Moist Neck: NL Appearance and Movements; NL JVP, Trachea Midline Respiratory: Symmetrical Chest Expansion and Respiratory Effort, Clear to Auscultation Cardiovascular: NL Sounds; No Murmurs; No JVD, RRR Abdominal: NL Sounds; No Tenderness; No Distention, No Hepatosplenomegaly Extremities: No Edema Skin: No Rash or Ulcers Neurological: Alert and Oriented x 3 Result Diagrams: 04/28/19 17:26 04/29/19 06:19 Microbiology and Other Data: Microbiology 04/28/19 18:20 Urine Culture - Final Urine No Growth (<1,000 CFU/mL) Assess/Plan/Problems-Billing Assessment: 69M with metastatic prostate cancer off therapy, recent dx of hypophysitis/ hypopituitarism, presents with dizziness after stopping all medications. - Patient Problems (1) Mood disorder Comment: Patient stating he suffers significant depression and expressing SI if he is to be discharged home. Has a history of MDD, possibly when he was using significant amounts of alcohol - psych recommends to start sertraline 25mg daily - SW consult for home supports vs placement in SNF (2) Hypopituitarism Comment: Hypophysitis seen on MRI Mar 2019. Endo consult at that time. - resume home dexamethasone 1mg daily - resume home levothyroxine 100mcg daily (3) Adrenal insufficiency Comment: Cosyntropin test last admission suggested central adrenal insufficiency. Now presents with lightheadedness and hypotension after nonadherence to home medications. - s/p stress dose steroids, now on home dex 1 mg daily (4) Prostate cancer metastatic to bone Comment: No longer on treatment. - cont home Percocet prn severe pain - added tramadol 50 Q8H PRN moderate pain (5) DVT prophylaxis Comment: heparin scc (6) DNR (do not resuscitate)
--- NOTE | 2019-05-01 14:34 | CONSULT ---
Identification - Patient Identification Reason for Psychiatric Consultation: Suicidal Ideation -: Patient is a 69 year old, M admitted on 04/30/19. - MHU Identification Employment Status: Disabled Hx Psychiatric Hospitalization: No History - Objective HPI: Irvin is seen by the psychiatry service for follow up. He is laying in bed talking to his sister, Ximena, who is visiting. The patient remains depressed and irritable but reports that he is tolerating sertraline well. He denies SI in any other situation than being forced to return to live with his son, with whom he does not get along. "He doesn't even talk to me. He'll slam doors around the house just to wake me up and piss me off." The patient has a psychosocial stressor of a legal nature in that there is an order of protection preventing him from being on the premises when his son's children come over every other weekend for visitation. I gather that this is related to child abuse allegations against him that he disputes. "My son won't discipline his kids so I had to. I spent 10 years in group home and I have no intention of going back." He wants to be referred to a detention, saying that he can no longer take care of himself. "I can't make my appointments, I can't drive to the store , can't take my medications." Ximena is supportive of SNF placement. Exam Appearance: Well Developed/Nourished Hygiene: Normal Grooming: Fairly Well Kept Psychomotor Activities: Abnormal-Decreased Exhibits Abnormal Movement: No Attitude and Relatedness: Cooperative Eye Contact: Fair - Speech Quality: Unpressured Latencies: Normal Quantity: Appropriate Patient's Decription of Mood: "Sad" Observed Affect: Constricted Affect Consistent with: Dysphoria Patient's Thought Process: Coherent Thought Content: No Passive Wish, No Suicidal Planning, No Homicidal Ideation, No Paranoid Ideation Experiencing Hallucinations: No, Sensorium is Clear Type of Hallucinations: Visual: No, Auditory: No, Command: No Level of Consciousness: Alert Orientation: Yes Intact, Yes Orientated to Time, Yes Orientated to Place, Yes Orientated to Person Impulse Control: Tenuous Insight and Judgement: Fair Impression - Impression Clinical Impression: 69 y.o. single, white male with a complicated history of prostate cancer and endocrine dysfunction admitted to medicine with dizziness and adrenal insufficiency, who presents with depression and suicidal thoughts. Inpatient DSM-V Dx: F32.1 Merits Inpatient Hospitalization: No BSU: Problem List - Patient Problems (1) Major depressive disorder, single episode, moderate Current Visit: Yes Status: Acute Priority: High Plan - Treatment Plan Treatment Plan: We have started a trial of sertraline 25mg PO qday. His suicidal ideation is situational and he does not warrant BSU admission. Psychiatry will continue to follow. Continued Medication Management: Start Medication Medications: Current Medications Dexamethasone (Decadron Tab*) 1 mg PO DAILY [facility] Last Admin: 05/01/19 08:25 Dose: 1 mg Enoxaparin Sodium (Lovenox(*)) 40 mg SUBCUT BEDTIME [facility] Last Admin: 04/30/19 21:21 Dose: Not Given Levothyroxine Sodium (Synthroid Tab*) 100 mcg PO DAILY@0600 [facility] Last Admin: 05/01/19 06:02 Dose: 100 mcg Melatonin (Melatonin) 3 mg PO BEDTIME [facility] Last Admin: 04/30/19 21:22 Dose: 3 mg Oxycodone/Acetaminophen (Percocet 5/325 Tab*) 1 tab PO Q4H PRN PRN Reason: PAIN - SEVERE Last Admin: 04/30/19 21:23 Dose: 1 tab Polyethylene Glycol/Electrolytes (Miralax (17 Gm Dose Isak)) 17 gm PO DAILY PRN PRN Reason: CONSTIPATION Last Admin: 04/29/19 19:21 Dose: 17 gm Senna (Senokot 8.6 Mg Tab*) 2 tab PO BID [facility] Last Admin: 05/01/19 08:26 Dose: Not Given Sertraline HCl (Zoloft*) 25 mg PO DAILY [facility] Last Admin: 05/01/19 08:25 Dose: 25 mg Tramadol HCl (Ultram*) 50 mg PO Q8H PRN PRN Reason: PAIN - MODERATE Last Admin: 04/29/19 19:21 Dose: 50 mg - Discharge Plan Discharge Plan: Outpatient Follow Up
[2019-05-01] MEDS: Enoxaparin(*) 40 MG/0.4 ML SYR SUBCUT SCH (20:41)
[2019-05-01] MEDS: Melatonin 3 MG TAB PO SCH (20:42)
[2019-05-01] MEDS: oxyCODONE/Acetamin 5/325 MG* TAB PO PRN (20:42)
--- NOTE | 2019-05-02 07:25 | PN ---
Subjective Date of Service: 05/02/19 Interval History: No acute events overnight. Pt cleared for discharge and pending placement in SNF. Patient is without complaints. Multiple family members at bedside - discussed plan of care and answered all questions. Objective Active Medications: Dexamethasone (Decadron Tab*) 1 mg PO DAILY [facility] Last Admin: 05/02/19 09:12 Dose: 1 mg Enoxaparin Sodium (Lovenox(*)) 40 mg SUBCUT BEDTIME [facility] Last Admin: 05/01/19 20:41 Dose: Not Given Levothyroxine Sodium (Synthroid Tab*) 100 mcg PO DAILY@0600 [facility] Last Admin: 05/02/19 07:26 Dose: 100 mcg Melatonin (Melatonin) 3 mg PO BEDTIME [facility] Last Admin: 05/01/19 20:42 Dose: 3 mg Oxycodone/Acetaminophen (Percocet 5/325 Tab*) 1 tab PO Q4H PRN PRN Reason: PAIN - SEVERE Last Admin: 05/01/19 20:42 Dose: 1 tab Polyethylene Glycol/Electrolytes (Miralax (17 Gm Dose Isak)) 17 gm PO DAILY PRN PRN Reason: CONSTIPATION Last Admin: 04/29/19 19:21 Dose: 17 gm Senna (Senokot 8.6 Mg Tab*) 2 tab PO BID [facility] Last Admin: 05/02/19 09:12 Dose: 2 tab Sertraline HCl (Zoloft*) 50 mg PO DAILY [facility] Tramadol HCl (Ultram*) 50 mg PO Q8H PRN PRN Reason: PAIN - MODERATE Last Admin: 05/02/19 09:21 Dose: 50 mg Vital Signs - 8 hr 05/01/19 05/02/19 23:48 03:15 Temperature 97.8 F Pulse Rate 75 Respiratory 14 18 Rate Blood Pressure 100/58 (mmHg) O2 Sat by Pulse 92 Oximetry Oxygen Devices in Use Now: None Appearance: well appearing man, nad Ears/Nose/Mouth/Throat: Clear Oropharnyx, Mucous Membranes Moist Neck: NL Appearance and Movements; NL JVP, Trachea Midline Respiratory: Symmetrical Chest Expansion and Respiratory Effort, Clear to Auscultation Cardiovascular: NL Sounds; No Murmurs; No JVD, RRR Abdominal: NL Sounds; No Tenderness; No Distention, No Hepatosplenomegaly Extremities: No Edema Skin: No Rash or Ulcers Neurological: Alert and Oriented x 3 Result Diagrams: 04/28/19 17:26 04/29/19 06:19 Microbiology and Other Data: Microbiology 04/28/19 18:20 Urine Culture - Final Urine No Growth (<1,000 CFU/mL) Assess/Plan/Problems-Billing Assessment: 69M with metastatic prostate cancer off therapy, recent dx of hypophysitis/ hypopituitarism, presents with dizziness after stopping all medications. - Patient Problems (1) Mood disorder Comment: Patient states he suffers significant depression, likely situational. Expressing SI if he is to be discharged home. Has a history of MDD, possibly when he was using significant amounts of alcohol - appreciate psych, now on sertraline 50mg daily - pending SNF (2) Hypopituitarism Comment: Hypophysitis seen on MRI Mar 2019. Endo consult at that time. - resume home dexamethasone 1mg daily - resume home levothyroxine 100mcg daily (3) Adrenal insufficiency Comment: Cosyntropin test last admission suggested central adrenal insufficiency. Now presents with lightheadedness and hypotension after nonadherence to home medications. - s/p stress dose steroids, now on home dex 1 mg daily (4) Prostate cancer metastatic to bone Comment: No longer on treatment. - cont home Percocet prn severe pain - added tramadol 50 Q8H PRN moderate pain (5) DVT prophylaxis Comment: heparin scc (6) DNR (do not resuscitate)
[2019-05-02] MEDS: Levothyroxine TAB* 100 MCG TAB PO SCH (07:26)
[2019-05-02] MEDS: Sertraline* 25 MG TAB PO SCH (09:12)
[2019-05-02] MEDS: Dexamethasone TAB* 1 MG PO SCH (09:12)
[2019-05-02] MEDS: Senna TAB 8.6 mg* TAB PO SCH ×2 (09:12→21:04)
[2019-05-02] MEDS: traMADol TAB* 50 MG PO PRN ×2 (09:21→21:03)
[2019-05-02] MEDS: Melatonin 3 MG TAB PO SCH (21:03)
[2019-05-02] MEDS: Enoxaparin(*) 40 MG/0.4 ML SYR SUBCUT SCH (21:04)
[2019-05-02] MEDS: oxyCODONE/Acetamin 5/325 MG* TAB PO PRN (23:31)
[2019-05-03] MEDS: Levothyroxine TAB* 100 MCG TAB PO SCH (07:27)
[2019-05-03 08:49] VITALS: BP 93/55
[2019-05-03] MEDS ORDERED: Sertraline* 50 MG TAB PO SCH (09:00)
[2019-05-03] MEDS: oxyCODONE/Acetamin 5/325 MG* TAB PO PRN (09:31)
[2019-05-03] MEDS: Dexamethasone TAB* 1 MG PO SCH (09:31)
[2019-05-03] MEDS: Senna TAB 8.6 mg* TAB PO SCH (09:32)
--- NOTE | 2019-05-03 10:17 | DS ---
CC: Pilar Chavez MD; Rusty Ray MD * DISCHARGE SUMMARY: DATE OF ADMISSION: 04/29/19 DATE OF DISCHARGE: 05/03/19 PRIMARY CARE PROVIDER: Pilar Chavez MD OUTPATIENT COMPUTER ASSISTANT: Rusty Ray MD CONSULTS: 1. Dr. Ray of Endocrinology 2. Dr. Howard of Psychiatry. DISCHARGE MEDICATIONS: 1. Dexamethasone 1 mg daily. 2. Levothyroxine 100 mcg daily. 3. Sertraline 50 mg daily. 4. Morphine 15 mg p.o. t.i.d. p.r.n. [id number] pain. 5. Bisacodyl 5 mg p.o. daily as needed for constipation. 6. Polyethylene glycol 17 g daily as needed for constipation. HISTORY OF PRESENT ILLNESS: Mr. Soliz is a 69-year-old man with metastatic prostate cancer, off therapy, also recent diagnosis hypophysitis/hypopituitarism who is presenting with lightheadedness after stopping all of his medications. The patient reports that he has been experiencing significant home stressors, which may be causing insomnia and headaches. He reports incredibly high amounts of anger given difficult home situation with his son and therefore decided to stop all of his home medications. He reports that he is unable to care for himself given his stressful home situation. He feels like a burden on others, unable to make it to appointments, take his medications, or take care of himself. HOSPITAL COURSE: The patient's lab work was generally unremarkable, but he was noted to be hypotensive in the emergency room. He was given IV fluid boluses with IV steroids. His lightheadedness on standing continued to improve over of the course of his first day of admission. On next morning, he was transitioned back to all of his home oral medications. Orthostatics were performed and negative for orthostatic hypotension. While the patient was deemed ready for discharge, he expressed suicidal ideation at the idea of going home, so a psychiatry consult was obtained for possible transfer to the behavioral health unit. Psychiatry did not think the patient was a good candidate for inpatient psychiatric admission and started him on sertraline, which he was amenable to. Case management helped work with the patient and his family for care home placement. By day of discharge, the complete 10-point review of systems was performed and significant for depressed mood, but no longer with suicidal ideation. PHYSICAL EXAMINATION: Vital Signs: Afebrile, heart rate 60, blood pressure 100 /56, respiratory rate 16, oxygen saturation 98% on room air. In general, he is a well-appearing man, in no acute distress, is alert and interactive. HEENT with moist mucous membranes. OP clear. Neck: Supple. No JVD. Lungs: Clear to auscultation bilaterally. Heart: Regular rate and rhythm. No murmurs, gallops, or rubs. Abdomen: Soft, nontender, nondistended. Extremities: Warm and well perfused without evidence of edema. Skin: Without rash or ulcers. Neuro: A and O x3. No focal deficits. Psych: Depressed mood, occasionally angry when mentioning home situation. DIAGNOSTIC STUDIES/LAB DATA: CBC, BMP, and LFTs unremarkable. TSH 0.87 with free T4 of 0.87, which is normal and total T3 of 60, which is low. Cortisol 32. UA unremarkable. DISCHARGE PLAN: The patient will be [facility] He should continue to follow up with his primary care physician as well as Dr. Rusty Ray of Endocrinology. His home pituitary replacement medications were continued as before without changes. The patient can also follow up with his oncologist at his discretion, but appears he no longer wants to receive treatment for prostate cancer. For major depressive disorder, he was initiated on sertraline 50 mg, which he has tolerated during admission. He should continue to follow up with his PCP for titration of his medication as well as possible referral to psychotherapy. The patient was given return precautions which include, but are not limited to recurrence of headache or lightheadedness. DIET: Regular diet. ACTIVITY: As tolerated. DISPOSITION[facility]. CONDITION: Good. TIME SPENT: Approximately 60 minutes was spent on discharge of this patient, more than half of which was spent on care coordination at bedside for interview and exam. [id number]/[facility] #: [id number] RITA
== END 2019-05-03 13:20 | DRG 644 ==
LOC: ED 16:30 → MED 23:26 → OBSVTOIN 04-30 16:00
PROVIDERS: ADMIT Student in an Organized Health Care Education/Training Program; ATTEND Internal Medicine
DX: E23.6 Other disorders of pituitary gland (principal); R45.851 Suicidal ideations; F33.2 Major depressive disorder, recurrent severe without psychotic features; C79.51 Secondary malignant neoplasm of bone; E27.49 Other adrenocortical insufficiency; R42 Dizziness and giddiness; E23.0 Hypopituitarism; E22.2 Syndrome of inappropriate secretion of antidiuretic hormone; E03.8 Other specified hypothyroidism; C61 Malignant neoplasm of prostate; Z66 Do not resuscitate; F12.10 Cannabis abuse, uncomplicated; F41.9 Anxiety disorder, unspecified; F17.210 Nicotine dependence, cigarettes, uncomplicated; G47.00 Insomnia, unspecified; Z79.890 Hormone replacement therapy; Z28.21 Immunization not carried out because of patient refusal; Z90.79 Acquired absence of other genital organ(s); Z91.14 Patient's other noncompliance with medication regimen; Z72.89 Other problems related to lifestyle; Z79.899 Other long term (current) drug therapy
CPT/HCPCS: 36415; 80048; 80053; 81003; 81015; 82533; 84439; 84443; 84479; 84484; 85025; 85610; 87086; 96372; 96374; 96375; 96376; 99285; A9270-GY; G0378; J1644; J1650; J1720; J1885

== ENCOUNTER 2021-10-04 18:32 | Observation (INO) ==
[2021-10-04] MEDS ORDERED: NS 0.9% 1000 ml BAG 1,000 ML IV ONE (20:35)
[2021-10-04 20:54] LABS: ABS Eosinophils 0.1 10^3/ul (0-0.6); ABS Monocytes 0.4 10^3/ul (0-0.8); ABS Neutrophils 2.4 10^3/ul (1.5-7.7); Eosinophil % 2.4 %; Hematocrit 40 % (42-52); Hemoglobin 13.8 g/dL (14.0-18.0); Lymphocyte % 39.7 %; Mean Corpuscular HGB Conc 35 g/dL (31-36); Mean Corpuscular Hemoglobin 33 pg (27-31); Mean Corpuscular Volume 96 fL (80-94); Mean Platelet Volume 7.6 fL (7.4-10.4); Nucleated Red Blood Cells % 0.1; Platelet Count 270 10^3/uL (150-450); Red Blood Count 4.13 10^6 /uL (4.18-5.48); Red Cell Distribution Width 14 % (10-15); White Blood Count 4.9 10^3/uL (3.5-10.8)
[2021-10-04 21:29] LABS: Albumin 3.8 g/dL (3.2-5.2); Anion Gap 14 mmol/L (2-11); CO2 Carbon Dioxide 19 mmol/L (22-32); Calcium 8.6 mg/dL (8.6-10.3); Chloride 95 mmol/L (101-111); Potassium 3.8 mmol/L (3.5-5.0); Sodium 128 mmol/L (135-145)
[2021-10-04 21:35] LABS: ALT 22 U/L (7-52); AST 49 U/L (13-39); Albumin/Globulin Ratio 1.6 (1-3); Alkaline Phosphatase 108 U/L (35-149); Blood Urea Nitrogen 6 mg/dL (6-24); Globulin 2.4 g/dL (2-4); Glucose 59 mg/dL (70-100); Lipase 32 U/L (11.0-82.0); Total Protein 6.2 g/dL (6.4-8.9); eGFR CKD-EPI 92.2 (>60)
[2021-10-04 23:09] LABS: Urine Appearance Clear; Urine Color Yellow
[2021-10-04 23:10] LABS: Urine Bilirubin 1+ (Small) (Negative); Urine Blood Trace (Intact) (Negative); Urine Glucose Negative (Negative); Urine Ketones 4+ (>=160mg/dL) (Negative); Urine Nitrite Negative (Negative); Urine Protein Negative (Negative); Urine Specific Gravity 1.025 (1.005-1.030); Urine pH 5.5 (5.0-9.0)
[2021-10-04 23:25] LABS: Urine Bacteria Absent (Absent); Urine Red Blood Cell Trace(0-2/hpf) (Absent); Urine Squamous Epithelial Cell Present (Absent); Urine White Blood Cell Trace(0-5/hpf) (Absent)
[2021-10-05] MEDS ORDERED: Morphine ER 15 mg TAB ** extended release PO PRN (00:53)
[2021-10-05] MEDS ORDERED: NS 0.9% 1000 ml BAG 1,000 ML IV ONE (00:55)
[2021-10-05] MEDS ORDERED: Morphine 4 MG/ML VIAL (1 ml) IV PRN (01:12)
[2021-10-05] MEDS: Enoxaparin 40 MG/0.4 ML SYR SUBCUT SCH ×2 (01:20→20:54)
[2021-10-05 01:45] LABS: Alcohol, S < 13 mg/dL (<13)
[2021-10-05 03:27] LABS: TSH Ultra Thyroid Stim Horm 0.56 mcIU/mL (0.34-5.60)
[2021-10-05 03:30] LABS: Free T4 0.63 ng/dL (0.61-1.12)
[2021-10-05 08:32] LABS: Calcium 8.2 mg/dL (8.6-10.3); Potassium 4.1 mmol/L (3.5-5.0); eGFR CKD-EPI 94.3 (>60)
[2021-10-05] MEDS: Morphine ER 15 mg TAB ** extended release PO SCH ×2 (14:00→20:54)
[2021-10-05] MEDS ORDERED: Morphine ER 15 mg TAB ** extended release PO SCH (14:00)
[2021-10-05 14:42] LABS: PSA Screening Total 12.766 ng/mL (0-4.000)
[2021-10-06 06:17] LABS: Potassium 4.6 mmol/L (3.5-5.0); eGFR CKD-EPI 93.2 (>60)
[2021-10-06] MEDS: Morphine ER 15 mg TAB ** extended release PO SCH ×3 (07:55→20:19)
[2021-10-06] MEDS ORDERED: Ondansetron 4 mg VIAL 2 MG/ML 2 ml VIAL IV PRN (08:52)
[2021-10-06] MEDS: Enoxaparin 40 MG/0.4 ML SYR SUBCUT SCH ×2 (20:19→20:21)
[2021-10-07 05:50] LABS: ABS Basophils 0.1 10^3/ul (0-0.2); ABS Eosinophils 0.2 10^3/ul (0-0.6); ABS Lymphocytes 2.3 10^3/ul (1.0-4.8); ABS Monocytes 0.4 10^3/ul (0-0.8); ABS Neutrophils 2.7 10^3/ul (1.5-7.7); Eosinophil % 2.7 %; Hematocrit 36 % (42-52); Hemoglobin 12.8 g/dL (14.0-18.0); Lymphocyte % 40.7 %; Mean Corpuscular HGB Conc 35 g/dL (31-36); Mean Corpuscular Hemoglobin 34 pg (27-31); Mean Corpuscular Volume 96 fL (80-94); Mean Platelet Volume 7.7 fL (7.4-10.4); Platelet Count 285 10^3/uL (150-450); Red Blood Count 3.78 10^6 /uL (4.18-5.48); Red Cell Distribution Width 15 % (10-15); White Blood Count 5.5 10^3/uL (3.5-10.8)
[2021-10-07 06:29] LABS: Calcium 8.9 mg/dL (8.6-10.3); Magnesium 1.9 mg/dL (1.9-2.7); Potassium 3.7 mmol/L (3.5-5.0); eGFR CKD-EPI 92.6 (>60)
[2021-10-07] MEDS: Morphine ER 15 mg TAB ** extended release PO SCH ×3 (08:45→22:01)
[2021-10-07] MEDS ORDERED: Gadoteridol (CONTRAST) 279.3 MG/ML 10 ML IV ONE (17:30)
[2021-10-07] MEDS: Enoxaparin 40 MG/0.4 ML SYR SUBCUT SCH (22:01)
[2021-10-08] MEDS: Morphine ER 15 mg TAB ** extended release PO SCH (09:44)
[2021-10-08 11:19] VITALS: BP 97/61
== END 2021-10-08 12:00 | disposition home or self-care (01) ==
LOC: ED 18:32 → EDHOLD 18:32 → SUATTDRO 10-05 00:45 → EDHOLD 10-05 03:05 → SSU 10-05 03:47
PROVIDERS: ADMIT Internal Medicine; ATTEND Internal Medicine

== ENCOUNTER 2021-11-16 05:17 | Inpatient (IN) ==
[2021-11-16] MEDS: NS 0.9% 1000 ml BAG 3,000 ML IV ONE ×3 (05:31→06:53)
[2021-11-16 05:41] LABS: ABS Basophils 0.1 10^3/ul (0-0.2); ABS Lymphocytes 2.2 10^3/ul (1.0-4.8); ABS Monocytes 0.6 10^3/ul (0-0.8); ABS Neutrophils 6.5 10^3/ul (1.5-7.7); Eosinophil % 0.1 %; Hematocrit 49 % (42-52); Lymphocyte % 23.9 %; Mean Corpuscular HGB Conc 34 g/dL (31-36); Mean Corpuscular Hemoglobin 34 pg (27-31); Mean Corpuscular Volume 98 fL (80-94); Mean Platelet Volume 7.4 fL (7.4-10.4); Nucleated Red Blood Cells % 0.2; Platelet Count 307 10^3/uL (150-450); Red Blood Count 5.06 10^6 /uL (4.18-5.48); Red Cell Distribution Width 15 % (10-15); White Blood Count 9.4 10^3/uL (3.5-10.8)
[2021-11-16 05:52] LABS: Activated Partial Thrombo Time 34.9 seconds (26.0-38.0); INR 1.15 (0.89-1.11)
[2021-11-16] MEDS ORDERED: Hydrocortisone INJ 100 MG/2ML 2 ML VIAL IV ONE (05:55)
[2021-11-16] MEDS ORDERED: Morphine ER 15 mg TAB ** extended release PO ONE (05:56)
[2021-11-16 06:00] LABS: High Sens Troponin Baseline 64 pg/mL (<20)
[2021-11-16] MEDS ORDERED: Morphine 4 MG/ML VIAL (1 ml) IV ONE (06:02)
[2021-11-16] MEDS ORDERED: Morphine 4 MG/ML VIAL (1 ml) IV PRN (06:02)
[2021-11-16 06:23] LABS: Albumin 4.6 g/dL (3.2-5.2); CO2 Carbon Dioxide 21 mmol/L (22-32); Calcium 9.9 mg/dL (8.6-10.3); Chloride 94 mmol/L (101-111); Sodium 131 mmol/L (135-145)
[2021-11-16 06:29] LABS: ALT 83 U/L (7-52); Albumin/Globulin Ratio 1.4 (1-3); Alkaline Phosphatase 181 U/L (35-149); Blood Urea Nitrogen 12 mg/dL (6-24); C Reactive Protein 102.66 mg/L (<8.01); Globulin 3.4 g/dL (2-4); Glucose 71 mg/dL (70-100); eGFR CKD-EPI 31.4 (>60)
[2021-11-16 06:36] LABS: Anion Gap 16 mmol/L (2-11)
[2021-11-16] MEDS ORDERED: cefTRIAXone 1 gm/50 mL D5W 1 GM/50 ML BAG IV ONE (07:05)
[2021-11-16 07:15] LABS: High Sensitivity Troponin 1 Hr 64 pg/mL (<20)
[2021-11-16 07:40] LABS: Potassium Redraw 3.6 mmol/L (3.5-5.0)
[2021-11-16] MEDS ORDERED: NS 0.9% 1000 ml BAG 1,000 ML IV ONE (09:42)
[2021-11-16 10:16] LABS: Magnesium 1.8 mg/dL (1.9-2.7)
[2021-11-16] MEDS ORDERED: Polyethylene Glycol 3350 17 GM PACKET PO PRN (10:16)
[2021-11-16 10:18] LABS: PCO2 Arterial 28 mmHg (35-45); PO2 Arterial 80 mmHg (80-100)
[2021-11-16 10:32] LABS: TSH Ultra Thyroid Stim Horm 0.54 mcIU/mL (0.34-5.60)
[2021-11-16 11:31] LABS: Free T4 0.57 ng/dL (0.61-1.12)
[2021-11-16] MEDS ORDERED: Hydrocortisone INJ 100 MG/2ML 2 ML VIAL IV SCH (12:00)
[2021-11-16] MEDS: LEVOTHYROXINE IV SCH (12:58)
[2021-11-16] MEDS: D5W IV SCH (12:58)
[2021-11-16] MEDS: Hydrocortisone INJ 100 MG/2ML 2 ML VIAL IV SCH ×2 (13:04→17:26)
[2021-11-16] MEDS: Heparin 5000 UNITS/ML 1 mL VIAL SUBCUT SCH ×2 (13:04→22:49)
[2021-11-16 16:46] LABS: Urine Appearance Cloudy; Urine Bilirubin Negative (Negative); Urine Blood 3+ (Large) (Negative); Urine Color Amber; Urine Glucose Negative (Negative); Urine Ketones Trace (Negative); Urine Nitrite Negative (Negative); Urine Protein 2+ (100 mg/dL) (Negative); Urine Urobilinogen 0.2 (Negative) (Negative)
[2021-11-16 16:49] LABS: Urine Bacteria Absent (Absent); Urine Red Blood Cell 3+(>10/hpf) (Absent); Urine White Blood Cell 1+(6-10/hpf) (Absent)
[2021-11-16 16:50] LABS: Urine Benzodiazepine Screen None Detected (None Detect); Urine Cannabinoids Screen Presumptive Positive (None Detect); Urine Opiates Screen Presumptive Positive (None Detect)
[2021-11-16] MEDS: Morphine ORAL.SOLN 10 mg 2 mg/ml UDC 5 ml (10 mg) PO PRN (17:26)
[2021-11-16 18:00] LABS: ABS Lymphocytes 0.7 10^3/ul (1.0-4.8); ABS Monocytes 0.1 10^3/ul (0-0.8); ABS Neutrophils 8.3 10^3/ul (1.5-7.7); Hematocrit 48 % (42-52); Hemoglobin 16.2 g/dL (14.0-18.0); Mean Corpuscular HGB Conc 34 g/dL (31-36); Mean Corpuscular Hemoglobin 33 pg (27-31); Mean Corpuscular Volume 97 fL (80-94); Mean Platelet Volume 7.4 fL (7.4-10.4); Platelet Count 262 10^3/uL (150-450); Red Blood Count 4.96 10^6 /uL (4.18-5.48); Red Cell Distribution Width 15 % (10-15); White Blood Count 9.2 10^3/uL (3.5-10.8)
[2021-11-16 19:15] LABS: Albumin 4.2 g/dL (3.2-5.2); Calcium 8.5 mg/dL (8.6-10.3); Chloride 103 mmol/L (101-111); Sodium 133 mmol/L (135-145)
[2021-11-16 19:19] LABS: CO2 Carbon Dioxide 16 mmol/L (22-32)
[2021-11-16 19:21] LABS: ALT 88 U/L (7-52); Albumin/Globulin Ratio 1.4 (1-3); Globulin 3.1 g/dL (2-4); Total Protein 7.3 g/dL (6.4-8.9)
[2021-11-16 19:22] LABS: Alkaline Phosphatase 142 U/L (35-149); Anion Gap 14 mmol/L (2-11); Blood Urea Nitrogen 17 mg/dL (6-24); Glucose 91 mg/dL (70-100)
[2021-11-16] MEDS: Lactated Ringers 1000 ml BAG 1,000 ML IV SCH (20:30)
[2021-11-16 20:55] LABS: Potassium Redraw 3.8 mmol/L (3.5-5.0)
[2021-11-16] MEDS: Senna TAB 8.6 mg TAB PO SCH (23:16)
[2021-11-17] MEDS: Morphine ORAL.SOLN 10 mg 2 mg/ml UDC 5 ml (10 mg) PO PRN ×3 (01:13→19:59)
[2021-11-17] MEDS: Calcium Carb (TUMS) 500 mg CHEW TAB PO PRN ×4 (01:14→17:45)
[2021-11-17] MEDS: Hydrocortisone INJ 100 MG/2ML 2 ML VIAL IV SCH ×3 (01:16→12:09)
[2021-11-17] MEDS: Ondansetron 4 mg VIAL 2 MG/ML 2 ml VIAL IV PRN (01:17)
[2021-11-17] MEDS: D5W IV SCH ×2 (01:26→14:34)
[2021-11-17] MEDS: LEVOTHYROXINE IV SCH ×2 (01:26→14:34)
[2021-11-17 05:13] LABS: ABS Monocytes 0.2 10^3/ul (0-0.8); ABS Neutrophils 12.2 10^3/ul (1.5-7.7); Hematocrit 42 % (42-52); Lymphocyte % 7.3 %; Mean Corpuscular HGB Conc 34 g/dL (31-36); Mean Corpuscular Hemoglobin 33 pg (27-31); Mean Corpuscular Volume 99 fL (80-94); Mean Platelet Volume 7.8 fL (7.4-10.4); Platelet Count 237 10^3/uL (150-450); Red Blood Count 4.21 10^6 /uL (4.18-5.48); Red Cell Distribution Width 15 % (10-15); White Blood Count 13.4 10^3/uL (3.5-10.8)
[2021-11-17 05:21] LABS: INR 1.21 (0.89-1.11)
[2021-11-17 05:35] LABS: Albumin 3.5 g/dL (3.2-5.2); Albumin/Globulin Ratio 1.5 (1-3); Globulin 2.4 g/dL (2-4); Magnesium 2.2 mg/dL (1.9-2.7); Potassium 3.9 mmol/L (3.5-5.0); Total Bilirubin 0.6 mg/dL (0.2-1.0); Total Protein 5.9 g/dL (6.4-8.9); eGFR CKD-EPI 37.7 (>60)
[2021-11-17] MEDS: cefTRIAXone 2 gm/50 mL D5W 2 GM/50 ML BAG IV SCH (06:33)
[2021-11-17] MEDS: Heparin 5000 UNITS/ML 1 mL VIAL SUBCUT SCH ×3 (06:41→22:34)
[2021-11-17] MEDS ORDERED: Potassium Chlor 20 meq TAB.ER PO ONE (10:16)
[2021-11-17] MEDS ORDERED: Dextrose 50% Syringe 50 ml 25 GM/50 ML SYRINGE IV PUSH PRN (10:47)
[2021-11-17] MEDS ORDERED: Levothyroxine 100 MCG/5 ML VIAL ONE (11:58)
[2021-11-17] MEDS: Lactated Ringers 1000 ml BAG 1,000 ML IV SCH ×2 (14:11→14:33)
[2021-11-17 17:33] LABS: Free T4 0.81 ng/dL (0.61-1.12)
[2021-11-17] MEDS: Senna TAB 8.6 mg TAB PO SCH (22:34)
[2021-11-18] MEDS: Calcium Carb (TUMS) 500 mg CHEW TAB PO PRN (01:43)
[2021-11-18] MEDS: cefTRIAXone 2 gm/50 mL D5W 2 GM/50 ML BAG IV SCH (05:31)
[2021-11-18] MEDS: Heparin 5000 UNITS/ML 1 mL VIAL SUBCUT SCH ×3 (05:36→21:53)
[2021-11-18] MEDS: Lactated Ringers 1000 ml BAG 1,000 ML IV SCH (10:43)
[2021-11-18] MEDS: D5LR 1000 ml BAG 1,000 ML IV SCH (15:02)
[2021-11-18] MEDS: Ondansetron 4 mg VIAL 2 MG/ML 2 ml VIAL IV PRN (17:09)
[2021-11-18] MEDS: Senna TAB 8.6 mg TAB PO SCH (21:52)
[2021-11-18] MEDS: Morphine ORAL.SOLN 10 mg 2 mg/ml UDC 5 ml (10 mg) PO PRN (21:53)
[2021-11-19] MEDS: D5LR 1000 ml BAG 1,000 ML IV SCH (05:31)
[2021-11-19] MEDS: Heparin 5000 UNITS/ML 1 mL VIAL SUBCUT SCH ×3 (05:32→21:56)
[2021-11-19] MEDS: Morphine ORAL.SOLN 10 mg 2 mg/ml UDC 5 ml (10 mg) PO PRN ×3 (05:33→21:58)
[2021-11-19 06:37] LABS: ABS Lymphocytes 1.4 10^3/ul (1.0-4.8); ABS Monocytes 0.4 10^3/ul (0-0.8); ABS Neutrophils 3.9 10^3/ul (1.5-7.7); Eosinophil % 0.3 %; Hematocrit 37 % (42-52); Hemoglobin 12.7 g/dL (14.0-18.0); Lymphocyte % 24.5 %; Mean Corpuscular HGB Conc 34 g/dL (31-36); Mean Corpuscular Hemoglobin 33 pg (27-31); Mean Corpuscular Volume 98 fL (80-94); Mean Platelet Volume 8.6 fL (7.4-10.4); Platelet Count 206 10^3/uL (150-450); Red Cell Distribution Width 15 % (10-15); White Blood Count 5.7 10^3/uL (3.5-10.8)
[2021-11-19 06:52] LABS: Albumin 3.1 g/dL (3.2-5.2); Albumin/Globulin Ratio 1.5 (1-3); Calcium 8.9 mg/dL (8.6-10.3); Globulin 2.1 g/dL (2-4); Magnesium 1.9 mg/dL (1.9-2.7); Potassium 3.9 mmol/L (3.5-5.0); Total Bilirubin 0.4 mg/dL (0.2-1.0); Total Protein 5.2 g/dL (6.4-8.9); eGFR CKD-EPI 54.7 (>60)
[2021-11-19 07:08] LABS: Free T4 0.61 ng/dL (0.61-1.12)
[2021-11-19] MEDS: Senna TAB 8.6 mg TAB PO SCH (21:58)
[2021-11-20] MEDS: D5LR 1000 ml BAG 1,000 ML IV SCH (03:31)
[2021-11-20] MEDS: Morphine ORAL.SOLN 10 mg 2 mg/ml UDC 5 ml (10 mg) PO PRN ×3 (06:35→23:58)
[2021-11-20] MEDS: Heparin 5000 UNITS/ML 1 mL VIAL SUBCUT SCH ×2 (06:36→14:19)
[2021-11-21] MEDS: Heparin 5000 UNITS/ML 1 mL VIAL SUBCUT SCH ×4 (00:08→21:47)
[2021-11-21] MEDS: Senna TAB 8.6 mg TAB PO SCH ×2 (00:09→21:46)
[2021-11-21] MEDS: Morphine ORAL.SOLN 10 mg 2 mg/ml UDC 5 ml (10 mg) PO PRN ×3 (05:46→22:17)
[2021-11-22] MEDS: Heparin 5000 UNITS/ML 1 mL VIAL SUBCUT SCH ×3 (05:20→20:26)
[2021-11-22] MEDS: Morphine ORAL.SOLN 10 mg 2 mg/ml UDC 5 ml (10 mg) PO PRN ×2 (07:32→17:19)
[2021-11-22] MEDS: Senna TAB 8.6 mg TAB PO SCH (19:48)
[2021-11-23] MEDS: Heparin 5000 UNITS/ML 1 mL VIAL SUBCUT SCH ×3 (05:22→21:02)
[2021-11-23] MEDS: Morphine ORAL.SOLN 10 mg 2 mg/ml UDC 5 ml (10 mg) PO PRN ×2 (08:29→20:18)
[2021-11-23] MEDS: Senna TAB 8.6 mg TAB PO SCH (21:02)
[2021-11-24] MEDS: Morphine ORAL.SOLN 10 mg 2 mg/ml UDC 5 ml (10 mg) PO PRN ×4 (02:02→23:51)
[2021-11-24] MEDS: Heparin 5000 UNITS/ML 1 mL VIAL SUBCUT SCH ×3 (08:06→21:39)
[2021-11-24 08:28] LABS: Hematocrit 39 % (42-52); Hemoglobin 13.1 g/dL (14.0-18.0); Mean Corpuscular HGB Conc 33 g/dL (31-36); Mean Corpuscular Hemoglobin 33 pg (27-31); Mean Corpuscular Volume 99 fL (80-94); Mean Platelet Volume 8.2 fL (7.4-10.4); Platelet Count 364 10^3/uL (150-450); Red Blood Count 3.99 10^6 /uL (4.18-5.48); Red Cell Distribution Width 15 % (10-15)
[2021-11-24 08:49] LABS: ABS Basophils 0.1 10^3/ul (0-0.2); ABS Eosinophils 0.2 10^3/ul (0-0.6); ABS Lymphocytes 4.2 10^3/ul (1.0-4.8); ABS Monocytes 1.1 10^3/ul (0-0.8); ABS Neutrophils 5.4 10^3/ul (1.5-7.7); Eosinophil % 1.7 %; Nucleated Red Blood Cells % 0.2; RBC Morphology Normal (Normal)
[2021-11-24 09:04] LABS: Calcium 8.9 mg/dL (8.6-10.3); Potassium 4.8 mmol/L (3.5-5.0); eGFR CKD-EPI 67.3 (>60)
[2021-11-24 09:21] LABS: Free T4 0.65 ng/dL (0.61-1.12)
[2021-11-24] MEDS: Senna TAB 8.6 mg TAB PO SCH (21:38)
[2021-11-24 23:14] VITALS: BP 122/58
[2021-11-25] MEDS: Morphine ORAL.SOLN 10 mg 2 mg/ml UDC 5 ml (10 mg) PO PRN (07:24)
== END 2021-11-25 07:40 | disposition home or self-care (01) | DRG 643 ==
LOC: ED 05:17 → EDHOLD 10:23 → SUATTDRO 10:23 → ICU 12:31 → MEDTELE 11-17 20:09
PROVIDERS: ADMIT Internal Medicine Critical Care Medicine; ATTEND Internal Medicine

== ENCOUNTER 2021-12-14 22:29 | Observation (INO) ==
[2021-12-15 01:22] LABS: ABS Eosinophils 0.2 10^3/ul (0-0.6); ABS Lymphocytes 2.7 10^3/ul (1.0-4.8); ABS Monocytes 0.4 10^3/ul (0-0.8); ABS Neutrophils 1.4 10^3/ul (1.5-7.7); Eosinophil % 3.5 %; Hematocrit 35 % (42-52); Hemoglobin 12.3 g/dL (14.0-18.0); Lymphocyte % 57.1 %; Mean Corpuscular HGB Conc 35 g/dL (31-36); Mean Corpuscular Hemoglobin 32 pg (27-31); Mean Corpuscular Volume 93 fL (80-94); Mean Platelet Volume 6.7 fL (7.4-10.4); Nucleated Red Blood Cells % 0.2; Platelet Count 328 10^3/uL (150-450); Red Cell Distribution Width 15 % (10-15); White Blood Count 4.7 10^3/uL (3.5-10.8)
[2021-12-15 01:50] LABS: ALT 11 U/L (7-52); AST 35 U/L (13-39); Acetaminophen < 15 mcg/mL; Albumin 3.3 g/dL (3.2-5.2); Albumin/Globulin Ratio 1.4 (1-3); Alcohol, S < 13 mg/dL (<13); Alkaline Phosphatase 130 U/L (35-149); Anion Gap 7 mmol/L (2-11); Blood Urea Nitrogen 5 mg/dL (6-24); CO2 Carbon Dioxide 22 mmol/L (22-32); Calcium 8.5 mg/dL (8.6-10.3); Chloride 92 mmol/L (101-111); Globulin 2.3 g/dL (2-4); Glucose 84 mg/dL (70-100); Potassium 3.2 mmol/L (3.5-5.0); Salicylate < 2.50 mg/dL (<30); Sodium 121 mmol/L (135-145); Total Protein 5.6 g/dL (6.4-8.9); eGFR CKD-EPI 94.3 (>60)
[2021-12-15 01:53] LABS: Urine Appearance Clear; Urine Bilirubin Negative (Negative); Urine Blood Trace (Intact) (Negative); Urine Color Yellow; Urine Glucose Negative (Negative); Urine Ketones Negative (Negative); Urine Nitrite Negative (Negative); Urine Protein Negative (Negative); Urine Urobilinogen 0.2 (Negative) (Negative)
[2021-12-15 01:56] LABS: Urine Benzodiazepine Screen None Detected (None Detect); Urine Cannabinoids Screen Presumptive Positive (None Detect); Urine Opiates Screen None Detected (None Detect)
[2021-12-15] MEDS ORDERED: NS 0.9% 1000 ml BAG 1,000 ML IV ONE ×2 (01:58→04:03)
[2021-12-15] MEDS ORDERED: Hydrocortisone INJ 100 MG/2ML 2 ML VIAL IV ONE (01:59)
[2021-12-15 02:01] LABS: Urine Bacteria Absent (Absent); Urine Red Blood Cell Trace(0-2/hpf) (Absent); Urine Squamous Epithelial Cell Present (Absent); Urine White Blood Cell Absent (Absent)
[2021-12-15 02:04] LABS: TSH Ultra Thyroid Stim Horm 1.58 mcIU/mL (0.34-5.60)
[2021-12-15] MEDS ORDERED: Potassium Chlor 20 meq TAB.ER PO ONE ×2 (04:05→07:56)
[2021-12-15 07:20] LABS: ABS Lymphocytes 0.8 10^3/ul (1.0-4.8); ABS Monocytes 0.1 10^3/ul (0-0.8); ABS Neutrophils 2.4 10^3/ul (1.5-7.7); Eosinophil % 0.2 %; Hematocrit 37 % (42-52); Hemoglobin 12.9 g/dL (14.0-18.0); Lymphocyte % 23.2 %; Mean Corpuscular HGB Conc 35 g/dL (31-36); Mean Corpuscular Hemoglobin 33 pg (27-31); Mean Corpuscular Volume 94 fL (80-94); Mean Platelet Volume 6.7 fL (7.4-10.4); Platelet Count 343 10^3/uL (150-450); Red Blood Count 3.93 10^6 /uL (4.18-5.48); Red Cell Distribution Width 15 % (10-15); White Blood Count 3.3 10^3/uL (3.5-10.8)
[2021-12-15] MEDS: Heparin 5000 UNITS/ML 1 mL VIAL SUBCUT SCH ×3 (07:34→20:33)
[2021-12-15 07:51] LABS: Calcium 8.7 mg/dL (8.6-10.3); Magnesium 1.7 mg/dL (1.9-2.7); Potassium 3.4 mmol/L (3.5-5.0); eGFR CKD-EPI 95.7 (>60)
[2021-12-15] MEDS ORDERED: Magnesium Sulfate 2 gm BAG 2 GM/50 ML BAG IVPB ONE (07:55)
[2021-12-15 08:08] LABS: Free T4 0.3 ng/dL (0.61-1.12)
[2021-12-15 17:43] LABS: Calcium 9.4 mg/dL (8.6-10.3); eGFR CKD-EPI 92.2 (>60)
[2021-12-15] MEDS ORDERED: NS 0.45% 1000 ml BAG 500 ML IV SCH (19:00)
[2021-12-15] MEDS: Neomycin/Polym/Bacit TOP OINT 15 GM TOPICAL SCH (19:59)
[2021-12-16] MEDS: Heparin 5000 UNITS/ML 1 mL VIAL SUBCUT SCH (05:33)
[2021-12-16 06:35] LABS: ABS Lymphocytes 1.9 10^3/ul (1.0-4.8); ABS Monocytes 0.4 10^3/ul (0-0.8); ABS Neutrophils 7.4 10^3/ul (1.5-7.7); Hematocrit 36 % (42-52); Hemoglobin 12.3 g/dL (14.0-18.0); Lymphocyte % 19.4 %; Mean Corpuscular HGB Conc 34 g/dL (31-36); Mean Corpuscular Hemoglobin 33 pg (27-31); Mean Corpuscular Volume 97 fL (80-94); Mean Platelet Volume 7.4 fL (7.4-10.4); Platelet Count 389 10^3/uL (150-450); Red Blood Count 3.74 10^6 /uL (4.18-5.48); Red Cell Distribution Width 15 % (10-15); White Blood Count 9.7 10^3/uL (3.5-10.8)
[2021-12-16 06:55] LABS: Calcium 9.1 mg/dL (8.6-10.3); Potassium 4.3 mmol/L (3.5-5.0); eGFR CKD-EPI 84.5 (>60)
[2021-12-16 07:21] VITALS: BP 116/63
[2021-12-16] MEDS: Neomycin/Polym/Bacit TOP OINT 15 GM TOPICAL SCH (08:23)
[2021-12-16] MEDS ORDERED: Influenza vaccine *QUAD* *2022-23* 0.5 ML SYRINGE IM ONE (09:00)
== END 2021-12-16 12:00 | disposition home or self-care (01) ==
LOC: ED 22:29 → EDHOLD 22:29 → SUATTDRO 12-15 03:09 → MED 12-15 18:02
PROVIDERS: ADMIT Internal Medicine; ATTEND Internal Medicine

== ENCOUNTER 2021-12-25 15:04 | Inpatient (IN) ==
[2021-12-25] MEDS ORDERED: NS 0.9% 1000 ml BAG 1,000 ML IV ONE (15:35)
[2021-12-25 16:10] LABS: ABS Basophils 0.1 10^3/ul (0-0.2); ABS Lymphocytes 1.4 10^3/ul (1.0-4.8); ABS Monocytes 0.6 10^3/ul (0-0.8); ABS Neutrophils 7.8 10^3/ul (1.5-7.7); Eosinophil % 0.1 %; Hematocrit 41 % (42-52); Hemoglobin 13.4 g/dL (14.0-18.0); Lymphocyte % 13.9 %; Mean Corpuscular HGB Conc 33 g/dL (31-36); Mean Corpuscular Hemoglobin 32 pg (27-31); Mean Corpuscular Volume 97 fL (80-94); Mean Platelet Volume 7.8 fL (7.4-10.4); Nucleated Red Blood Cells % 0.1; Platelet Count 272 10^3/uL (150-450); Red Blood Count 4.16 10^6 /uL (4.18-5.48); Red Cell Distribution Width 15 % (10-15)
[2021-12-25 16:21] LABS: Activated Partial Thrombo Time 27.9 seconds (26.0-38.0); INR 1.23 (0.89-1.11)
[2021-12-25 16:30] LABS: Albumin 3.9 g/dL (3.2-5.2); Albumin/Globulin Ratio 1.3 (1-3); C Reactive Protein 385.07 mg/L (<8.01); Calcium 8.4 mg/dL (8.6-10.3); Globulin 3.1 g/dL (2-4); Potassium 4.8 mmol/L (3.5-5.0); Total Bilirubin 2.8 mg/dL (0.2-1.0); eGFR CKD-EPI 21.3 (>60)
[2021-12-25 16:45] LABS: TSH Ultra Thyroid Stim Horm 0.14 mcIU/mL (0.34-5.60)
[2021-12-25] MEDS ORDERED: Piperacillin/Tazobac ADVAN 3.375 GM in NS 0.9% 100 ml BAG 100 ML IV ONE (16:46)
[2021-12-25 16:47] LABS: Free T4 0.78 ng/dL (0.61-1.12)
[2021-12-25] MEDS ORDERED: Hydrocortisone INJ 250 MG VIAL IV ONE (16:51)
[2021-12-25] MEDS ORDERED: D5W 1/2 NS 1000 ml BAG 1,000 ML IV SCH (17:00)
[2021-12-25] MEDS ORDERED: Lactated Ringers SEPSIS* BAG 2,720 ML IV ONE (17:27)
[2021-12-25] MEDS ORDERED: Dextrose 50% Syringe 50 ml 25 GM/50 ML SYRINGE IV PUSH ONE (17:31)
[2021-12-25 17:43] LABS: Urine Appearance Cloudy; Urine Bilirubin Negative (Negative); Urine Blood 3+ (Negative); Urine Color Yellow; Urine Glucose Negative (Negative); Urine Ketones Negative (Negative); Urine Nitrite Negative (Negative); Urine Protein 2+(100 mg/dL) (Negative); Urine Specific Gravity 1.006 (1.002-1.030); Urine Urobilinogen Negative (Negative)
[2021-12-25 17:45] LABS: High Sensitivity Troponin 1 Hr 27 pg/mL (<20)
[2021-12-25 17:49] LABS: Urine Bacteria 1+ (Absent); Urine Red Blood Cell 3+(>10/hpf) (Absent); Urine Squamous Epithelial Cell Present (Absent); Urine White Blood Cell 3+(>20/hpf) (Absent)
[2021-12-25] MEDS ORDERED: cefTRIAXone 1 gm/50 mL D5W 1 GM/50 ML BAG IV SCH (19:15)
[2021-12-25] MEDS ORDERED: Zosyn per Pharmacy NOTE FOLLOW UP SCH (20:00)
[2021-12-25] MEDS ORDERED: cefTRIAXone 1 gm/50 mL D5W 1 GM/50 ML BAG IV ONE (20:15)
[2021-12-25 20:44] LABS: Urine Benzodiazepine Screen None Detected (None Detect); Urine Cannabinoids Screen Presumptive Positive (None Detect); Urine Opiates Screen None Detected (None Detect)
[2021-12-25] MEDS ORDERED: ZOSYN 3.375 GM Q8H per EXTENDED INFUSION IV SCH (21:00)
[2021-12-25 21:08] LABS: ALT 16 U/L (7-52); AST 57 U/L (13-39); Albumin/Globulin Ratio 1.3 (1-3); Alcohol, S < 13 mg/dL (<13); Alkaline Phosphatase 289 U/L (35-149); Anion Gap 13 mmol/L (2-11); Blood Urea Nitrogen 33 mg/dL (6-24); CO2 Carbon Dioxide 18 mmol/L (22-32); Calcium 7.5 mg/dL (8.6-10.3); Chloride 103 mmol/L (101-111); Creatine Kinase 1239 U/L (10-223); Globulin 2.4 g/dL (2-4); Glucose 107 mg/dL (70-100); Potassium 4.4 mmol/L (3.5-5.0); Sodium 134 mmol/L (135-145); Total Protein 5.4 g/dL (6.4-8.9); eGFR CKD-EPI 26.9 (>60)
[2021-12-25] MEDS ORDERED: D5LR 1000 ml BAG 1,000 ML IV SCH (23:45)
[2021-12-26] MEDS ORDERED: Hydrocortisone INJ 100 MG/2ML 2 ML VIAL IV SCH (02:30)
[2021-12-26] MEDS ORDERED: Heparin 5000 UNITS/ML 1 mL VIAL SUBCUT SCH (06:00)
[2021-12-26] MEDS ORDERED: Levothyroxine 100 MCG/5 ML VIAL IV SCH (06:00)
[2021-12-26 08:09] LABS: ABS Lymphocytes 0.5 10^3/ul (1.0-4.8); ABS Monocytes 0.1 10^3/ul (0-0.8); ABS Neutrophils 5.4 10^3/ul (1.5-7.7); Hematocrit 37 % (42-52); Hemoglobin 12.2 g/dL (14.0-18.0); Lymphocyte % 8.1 %; Mean Corpuscular HGB Conc 33 g/dL (31-36); Mean Corpuscular Hemoglobin 33 pg (27-31); Mean Corpuscular Volume 100 fL (80-94); Mean Platelet Volume 8.3 fL (7.4-10.4); Platelet Count 239 10^3/uL (150-450); Red Blood Count 3.73 10^6 /uL (4.18-5.48); Red Cell Distribution Width 16 % (10-15)
[2021-12-26 08:11] LABS: INR 1.2 (0.89-1.11)
[2021-12-26 08:31] LABS: Albumin 3.4 g/dL (3.2-5.2); Calcium 8.4 mg/dL (8.6-10.3); Globulin 3.3 g/dL (2-4); Total Bilirubin 1.3 mg/dL (0.2-1.0); Total Protein 6.7 g/dL (6.4-8.9); eGFR CKD-EPI 31.2 (>60)
[2021-12-26] MEDS ORDERED: Linezolid 600 MG IVPREMIX(*) 600 MG/300 ML BAG IVPB SCH (09:00)
[2021-12-26 10:18] LABS: Folate 11.43 ng/mL (5.90-24.80)
[2021-12-26] MEDS: Hydrocortisone INJ 100 MG/2ML 2 ML VIAL IV SCH ×2 (10:33→17:41)
[2021-12-26] MEDS ORDERED: Enoxaparin 40 MG/0.4 ML SYR SUBCUT SCH (12:00)
[2021-12-26] MEDS: Enoxaparin 30 MG/0.3 ML SYR SUBCUT SCH (14:53)
[2021-12-26 17:53] LABS: Direct Bilirubin 0.5 mg/dL (0.03-0.18); Indirect Bilirubin 0.8 mg/dL (0.3-1.0)
[2021-12-26] MEDS: cefTRIAXone 1 gm/50 mL D5W 1 GM/50 ML BAG IV SCH (19:55)
[2021-12-27] MEDS: Hydrocortisone INJ 100 MG/2ML 2 ML VIAL IV SCH ×3 (02:51→18:11)
[2021-12-27 06:05] LABS: ABS Lymphocytes 0.7 10^3/ul (1.0-4.8); ABS Monocytes 0.3 10^3/ul (0-0.8); ABS Neutrophils 9.9 10^3/ul (1.5-7.7); Eosinophil % 0.1 %; Hematocrit 35 % (42-52); Hemoglobin 11.5 g/dL (14.0-18.0); Lymphocyte % 6.8 %; Mean Corpuscular HGB Conc 33 g/dL (31-36); Mean Corpuscular Hemoglobin 33 pg (27-31); Mean Corpuscular Volume 99 fL (80-94); Mean Platelet Volume 9.1 fL (7.4-10.4); Platelet Count 202 10^3/uL (150-450); Red Blood Count 3.49 10^6 /uL (4.18-5.48); Red Cell Distribution Width 16 % (10-15)
[2021-12-27 06:18] LABS: Albumin 3.1 g/dL (3.2-5.2); Calcium 8.2 mg/dL (8.6-10.3); Potassium 3.3 mmol/L (3.5-5.0); Total Bilirubin 0.8 mg/dL (0.2-1.0)
[2021-12-27 06:24] LABS: Albumin/Globulin Ratio 1.1 (1-3); Globulin 2.9 g/dL (2-4); eGFR CKD-EPI 49.5 (>60)
[2021-12-27] MEDS: Potassium Chlor 20 meq TAB.ER PO ONE ×2 (08:47→08:50)
[2021-12-27] MEDS ORDERED: HYDROmorphone 1 MG/1 ML SYRINGE IV SLOW PU ONE (11:07)
[2021-12-27] MEDS: Enoxaparin 30 MG/0.3 ML SYR SUBCUT SCH ×2 (11:49→13:09)
[2021-12-27] MEDS: cefTRIAXone 1 gm/50 mL D5W 1 GM/50 ML BAG IV SCH (20:01)
[2021-12-28] MEDS: Hydrocortisone INJ 100 MG/2ML 2 ML VIAL IV SCH ×2 (02:59→10:23)
[2021-12-28] MEDS: Enoxaparin 30 MG/0.3 ML SYR SUBCUT SCH (13:09)
[2021-12-28] MEDS: cefTRIAXone 1 gm/50 mL D5W 1 GM/50 ML BAG IV SCH (20:18)
[2021-12-29 06:45] LABS: ABS Monocytes 0.6 10^3/ul (0-0.8); ABS Neutrophils 4.5 10^3/ul (1.5-7.7); Eosinophil % 0.2 %; Hematocrit 31 % (42-52); Hemoglobin 10.4 g/dL (14.0-18.0); Lymphocyte % 27.8 %; Mean Corpuscular HGB Conc 33 g/dL (31-36); Mean Corpuscular Hemoglobin 33 pg (27-31); Mean Corpuscular Volume 98 fL (80-94); Mean Platelet Volume 9.2 fL (7.4-10.4); Platelet Count 266 10^3/uL (150-450); Red Blood Count 3.16 10^6 /uL (4.18-5.48); Red Cell Distribution Width 15 % (10-15); White Blood Count 7.1 10^3/uL (3.5-10.8)
[2021-12-29 06:52] LABS: Albumin 3.4 g/dL (3.2-5.2); Albumin/Globulin Ratio 1.2 (1-3); Calcium 8.3 mg/dL (8.6-10.3); Globulin 2.8 g/dL (2-4); Magnesium 1.9 mg/dL (1.9-2.7); Potassium 3.1 mmol/L (3.5-5.0); Total Bilirubin 0.7 mg/dL (0.2-1.0); Total Protein 6.2 g/dL (6.4-8.9); eGFR CKD-EPI 67.3 (>60)
[2021-12-29] MEDS ORDERED: Potassium Chlor 20 meq TAB.ER PO ONE (07:06)
[2021-12-29] MEDS ORDERED: Magnesium Sulfate IV 1GM/100ML 1 GM/100 ML BAG IV ONE (07:07)
[2021-12-29 11:41] VITALS: BP 105/54
[2021-12-29] MEDS: Enoxaparin 30 MG/0.3 ML SYR SUBCUT SCH (14:53)
== END 2021-12-29 17:55 | disposition home or self-care (01) | DRG 871 ==
LOC: ED 15:04 → EDHOLD 19:05 → SUATTDRO 19:05 → MED 12-26 01:07
PROVIDERS: ADMIT Student in an Organized Health Care Education/Training Program; ATTEND Internal Medicine

== ENCOUNTER 2023-03-06 13:24 | Inpatient (IN) ==
[2023-03-06] MEDS ORDERED: NORMOSOL R PH IV ONE (13:44)
[2023-03-06] MEDS ORDERED: Piperacillin/Tazobac 3.375 BAG 3.375 GM/100 ML BAG IV ONE (14:00)
[2023-03-06 14:19] LABS: Hematocrit 37.4 % (38-53); Hemoglobin 12.9 g/dL (13.2-16.3); Mean Corpuscular Hemoglobin 33.6 pg (27-33); Mean Corpuscular Hgb Conc 34.4 g/dL (31-36); Mean Corpuscular Volume 97.6 fL (80-97); Mean Platelet Volume 7.6 fL (7.5-11.2); Platelet Count 239 10^3/uL (150-450); Red Blood Count 3.83 10^6/uL (4.06-5.63); Red Cell Distribution Width 17.5 % (12-17); White Blood Count 11.4 10^3/uL (3.6-10.2)
[2023-03-06] MEDS ORDERED: Dexamethasone IV 4 MG/ML VIAL 1 ml VIAL IV SLOW PU ONE (14:34)
[2023-03-06 14:36] LABS: Activated Partial Thrombo Time 31.3 seconds (26.0-38.0); INR 0.98 (0.83-1.13)
[2023-03-06 14:40] LABS: Albumin 4.6 g/dL (3.2-5.2); Albumin/Globulin Ratio 1.5 (1-3); C Reactive Protein 71.38 mg/L (<8.01); Calcium 9.5 mg/dL (8.6-10.3); Creatinine, Serum 1.29 mg/dL (0.67-1.17); Potassium 3.6 mmol/L (3.5-5.0); Total Bilirubin 1.2 mg/dL (0.2-1.0); Total Protein 7.6 g/dL (6.4-8.9); eGFR CKD-EPI 58.5 (>60)
[2023-03-06 14:42] LABS: ABS Basophils 0.1 10^3/uL (0.0-0.1); ABS Eosinophils 0.1 10^3/uL (0.0-0.5); ABS Lymphocytes 5.6 10^3/uL (1.0-4.8); ABS Monocytes 0.5 10^3/uL (0.0-1.1); ABS Nucleated RBC 0.01 10^3/ul; Eosinophil % 0.8 %; Lymphocyte % 49.7 %; Nucleated Red Blood Cells % 0.1 %/100WBC (0.0-0.8)
[2023-03-06] MEDS ORDERED: Acetaminophen IV 1 GM/100ML 1,000 MG/100 ML BAG IV ONE (15:01)
[2023-03-06 15:54] LABS: Creatine Kinase 300 U/L (10-223)
[2023-03-06 16:01] LABS: High Sensitivity Troponin 1 Hr 3 pg/mL (<20)
[2023-03-06] MEDS ORDERED: Lactated Ringers 1000 ml BAG 1,000 ML IV ONE (17:12)
[2023-03-06] MEDS: Pantoprazole VIAL 40 MG VIAL IV SCH (18:01)
[2023-03-06] MEDS ORDERED: Acetaminophen IV 1 GM/100ML 1,000 MG/100 ML BAG IV PRN (18:03)
[2023-03-06] MEDS: Lactated Ringers 1000 ml BAG 1,000 ML IV SCH (19:47)
[2023-03-06 20:00] LABS: Urine Appearance Cloudy; Urine Bilirubin Negative (Negative); Urine Blood 2+ (Negative); Urine Color Yellow; Urine Glucose Negative (Negative); Urine Ketones Negative (Negative); Urine Nitrite Negative (Negative); Urine Protein 1+(30 mg/dL) (Negative); Urine Specific Gravity 1.023 (1.002-1.030); Urine Urobilinogen Negative (Negative)
[2023-03-06 20:02] LABS: Urine Bacteria Absent (Absent); Urine Red Blood Cell 3+(>10/hpf) (Absent); Urine White Blood Cell 3+(>20/hpf) (Absent)
[2023-03-06] MEDS: Enoxaparin 40 MG/0.4 ML SYR SUBCUT SCH (23:14)
[2023-03-06] MEDS: Dexamethasone IV 4 MG/ML VIAL 1 ml VIAL IV SLOW PU SCH (23:14)
[2023-03-07] MEDS: Lactated Ringers 1000 ml BAG 1,000 ML IV SCH (03:48)
[2023-03-07] MEDS: Dexamethasone IV 4 MG/ML VIAL 1 ml VIAL IV SLOW PU SCH ×2 (05:16→10:49)
[2023-03-07 06:53] LABS: ABS Lymphocytes 1.6 10^3/uL (1.0-4.8); ABS Monocytes 0.1 10^3/uL (0.0-1.1); ABS Neutrophils 9.5 10^3/uL (1.5-7.6); ABS Nucleated RBC 0.01 10^3/ul; Eosinophil % 0.1 %; Hematocrit 38.3 % (38-53); Hemoglobin 13.3 g/dL (13.2-16.3); Lymphocyte % 14.3 %; Mean Corpuscular Hemoglobin 33.8 pg (27-33); Mean Corpuscular Hgb Conc 34.6 g/dL (31-36); Mean Corpuscular Volume 97.6 fL (80-97); Mean Platelet Volume 7.5 fL (7.5-11.2); Nucleated Red Blood Cells % 0.1 %/100WBC (0.0-0.8); Platelet Count 229 10^3/uL (150-450); Red Blood Count 3.93 10^6/uL (4.06-5.63); Red Cell Distribution Width 17.7 % (12-17); White Blood Count 11.3 10^3/uL (3.6-10.2)
[2023-03-07 07:17] LABS: Albumin 4.2 g/dL (3.2-5.2); Albumin/Globulin Ratio 1.4 (1-3); Calcium 8.9 mg/dL (8.6-10.3); Creatinine, Serum 0.99 mg/dL (0.67-1.17); Globulin 2.9 g/dL (2-4); Magnesium 2.4 mg/dL (1.9-2.7); Potassium 4.9 mmol/L (3.5-5.0); Total Bilirubin 0.7 mg/dL (0.2-1.0); Total Protein 7.1 g/dL (6.4-8.9); eGFR CKD-EPI 80.4 (>60)
[2023-03-07 07:32] LABS: TSH Ultra Thyroid Stim Horm 2.03 mcIU/mL (0.34-5.60)
[2023-03-07] MEDS: Pantoprazole VIAL 40 MG VIAL IV SCH (10:49)
[2023-03-07] MEDS ORDERED: Magnesium Hydroxide LIQ 30 ML UDC PO PRN (13:38)
[2023-03-07] MEDS ORDERED: Senna TAB 8.6 mg TAB PO PRN (13:38)
[2023-03-07] MEDS ORDERED: Polyethylene Glycol 3350 17 GM PACKET PO PRN (13:38)
[2023-03-07] MEDS: Magnesium Hydroxide LIQ 30 ML UDC PO SCH (20:31)
[2023-03-07] MEDS: Enoxaparin 40 MG/0.4 ML SYR SUBCUT SCH (20:32)
[2023-03-08] MEDS: Magnesium Hydroxide LIQ 30 ML UDC PO SCH ×2 (08:31→21:22)
[2023-03-08] MEDS: Pantoprazole VIAL 40 MG VIAL IV SCH (08:31)
[2023-03-08 10:51] VITALS: BP 118/63
[2023-03-08] MEDS: Enoxaparin 40 MG/0.4 ML SYR SUBCUT SCH (21:22)
[2023-03-08] MEDS: Senna TAB 8.6 mg TAB PO SCH (21:22)
[2023-03-09] MEDS: Magnesium Hydroxide LIQ 30 ML UDC PO SCH ×2 (07:43→22:53)
[2023-03-09] MEDS: Pantoprazole VIAL 40 MG VIAL IV SCH (07:43)
[2023-03-09] MEDS ORDERED: Ondansetron ODT 4 mg TAB 4 MG TAB SL PRN (15:18)
[2023-03-09] MEDS ORDERED: Atropine 1% (ORAL/SL) 15 ML BTL SL PRN (15:18)
[2023-03-09] MEDS: Senna TAB 8.6 mg TAB PO SCH (22:53)
[2023-03-10] MEDS: Pantoprazole VIAL 40 MG VIAL IV SCH (07:58)
[2023-03-10] MEDS: Magnesium Hydroxide LIQ 30 ML UDC PO SCH (07:58)
== END 2023-03-10 10:18 | DRG 55 ==
LOC: EDHOLD 13:24 → ED 13:24 → SUATTDRO 17:04 → MEDTELE 20:06
PROVIDERS: ADMIT Internal Medicine; ATTEND Internal Medicine